=== PATIENT | male | born 1985 | race Caucasian/White ===

== ENCOUNTER 2019-01-25 18:01 | Emergency (ER) | payer SELFPAY ==
--- NOTE | 2019-01-25 18:22 | PDOC ---
Rapid Medical Evaluation Chief Complaint: Blood Sugar Problem Time Seen by Provider: 01/25/19 18:18 Medical Evaluation: Allergies Allergy/AdvReac Type Severity Reaction Status Date / Time No Known Allergies Allergy Verified 12/21/14 05:49 01/25/19 18:20 I have performed a brief in person evaluation of the patient. The patient presents with CC: Pt states he is supposed to take Metformin and has been out for 5 days. He has been drinking ETOH and has not checked his glucose. Pt denies taking insulin. HPI: PE: Skin: Clear, no rash HEENT: Oropharynx clear Lungs: Clear Heart: RRR MS: Moves all extremities Neuro: Alert Psych: Appropriate affect The patient will proceed to main ED for further evaluation. Discharge Disposition - Diagnosis Hyperglycemia - Referrals - Patient Instructions - Post Discharge Activity
[2019-01-25 18:25] VITALS: TEMP 97.9; BMI 27.4
--- NOTE | 2019-01-25 19:07 | PDOC ---
History of Present Illness - General Chief Complaint: Blood Sugar Problem Stated Complaint: DIZZINESS Time Seen by Provider: 01/25/19 18:18 History Source: Patient, Instructional Technology Facilitator Used Exam Limitations: Language Barrier - History of Present Illness Initial Comments: 01/25/19 19:29 Phone spanish interpreter used for HPI/ROS: [id number] 33 year old male with PMH DM, ETOH abuse, cocaine abuse, withdrawal seizures presented to ED for headache after cessation of drinking alcohol x2 days ago. Pt stated he is an every day ETOH user, drinking 15 beers a day, but he stopped to days ago because "I want to be well." Pt admitted to epigastric burning. Pt reported he has been out of his Metformin for 5 days. Allergies: NKDA [facility]acy: [facility] Past History - Past Medical History Allergies/Adverse Reactions: Allergies Allergy/AdvReac Type Severity Reaction Status Date / Time No Known Allergies Allergy Verified 01/25/19 18:25 Home Medications: Ambulatory Orders metFORMIN HCL [Metformin HCl] 500 mg PO BID #28 tablet 01/25/19 COPD: No Diabetes: Yes - Suicide/Smoking/Psychosocial Hx Smoking History: Never smoked Have you smoked in the past 12 months: No Information on smoking cessation initiated: No Hx Alcohol Use: No Drug/Substance Use Hx: No Substance Use Type: None Review of Systems - Review of Systems Able to Perform ROS?: Yes Comments:: 01/25/19 19:30 General: denied fever, chills, generalized weakness. HEENT: denied sore throat, rhinorrhea, ear pain. Heart: denied chest pain, palpitations, syncope, diaphoresis. Respiratory: denied shortness of breath, cough, sputum production, hemoptysis. Abdomen: admitted to abdominal pain. denied nausea, vomiting, diarrhea, constipation, blood in stool. : denied dysuria, increased urinary frequency, hematuria, urinary incontinence , flank pain. Back: denied back pain. Musculoskeletal: denied joint pain, muscle pain, joint swelling. Neurological: admitted to headache. denied dizziness, numbness, tingling, weakness. Skin: denied rash, laceration, abrasion. *Physical Exam - Vital Signs Last Vital Signs Temp Pulse Resp BP Pulse Ox 97.9 F 89 18 163/97 97 01/25/19 18:19 01/25/19 18:19 01/25/19 18:19 01/25/19 18:19 01/25/19 18:19 - Physical Exam Comments: 01/25/19 19:31 Constitutional: Well-nourished, Well-developed, appearing stated age. smells of ETOH. HEENT: head is normocephalic, atraumatic. EOMI. PERRLA. no tongue fasiculations. Neck: supple. Full ROM. Heart: regular rhythm. no murmurs, rubs or gallops. Lungs: clear to auscultation bilaterally. no crackles, rhonchi or wheezing. no stridor. Abdomen: soft, nontender. normal bowel sounds. no rebound, guarding, masses. Extremities: peripheral pulses intact. no lower extremity edema. Neurological: no tremor to bilateral hands. CN 2-12 grossly intact. 5/5 strength all extremities. normal sensation throughout. normal gait. Psych: awake, alert, oriented x3. follows commands. answers questions appropriately. ED Treatment Course - LABORATORY CBC & Chemistry Diagram: 01/25/19 19:07 01/25/19 19:07 Medical Decision Making - Medical Decision Making 01/25/19 19:32 33 year old male with above PMH presented to ED for headache s/p ETOH cessation x2 days ago associated with epigastric burning. Initial Vital Signs Temp Pulse Resp BP Pulse Ox 97.9 F 89 18 163/97 97 01/25/19 18:19 01/25/19 18:19 01/25/19 18:19 01/25/19 18:19 01/25/19 18:19 Afebrile. No tachycardia. No tachypnea. Hypertensive. No hypoxia on room air. Labs ordered: BGM, CBC, CMP, Lipase, UA, serum acetone, ETOH level Imaging ordered: none Medications ordered: banana bag, tylenol IV, pepcid IV CBC WBC 7.2 K/mm3 (4.0-10.0) 01/25/19 19:07 RBC 4.27 M/mm3 (4.00-5.60) 01/25/19 19:07 Hgb 14.2 GM/dL (11.7-16.9) 01/25/19 19:07 Hct 41.4 % (35.4-49) 01/25/19 19:07 MCV 97.1 fl (80-96) H 01/25/19 19:07 MCH 33.2 pg (25.7-33.7) 01/25/19 19:07 MCHC 34.3 g/dl (32.0-35.9) 01/25/19 19:07 RDW 13.6 % (11.9-15.9) 01/25/19 19:07 Plt Count 272 K/MM3 (134-434) D 01/25/19 19:07 MPV 7.8 fl (7.5-11.1) 01/25/19 19:07 Absolute Neuts (auto) 3.9 K/mm3 (1.5-8.0) 01/25/19 19:07 Neutrophils % 54.7 % (42.8-82.8) 01/25/19 19:07 Lymphocytes % 36.9 % (8-40) D 01/25/19 19:07 Monocytes % 6.8 % (3.8-10.2) 01/25/19 19:07 Eosinophils % 0.7 % (0-4.5) 01/25/19 19:07 Basophils % 0.9 % (0-2.0) 01/25/19 19:07 Nucleated RBC % 0 % (0-0) 01/25/19 19:07 No leukocytosis. No anemia. Elevated MCV -Consistent with ETOH abuse 01/25/19 20:15 Urine Test Results Urine Color Yellow 01/25/19 19:24 Urine Appearance Clear 01/25/19 19:24 Urine pH 6.5 (5.0-8.0) 01/25/19 19:24 Ur Specific [place] 1.011 (1.010-1.035) 01/25/19 19:24 Urine Protein Negative (NEGATIVE) 01/25/19 19:24 Urine Glucose (UA) Negative (NEGATIVE) 01/25/19 19:24 Urine Ketones Negative (NEGATIVE) 01/25/19 19:24 Urine Blood Negative (NEGATIVE) 01/25/19 19:24 Urine Nitrite Negative (NEGATIVE) 01/25/19 19:24 Urine Bilirubin Negative (NEGATIVE) 01/25/19 19:24 Ur Leukocyte Esterase Trace (NEGATIVE) 01/25/19 19:24 WBC = 3 No evidence of UTI. No protein or blood in urine. No glucose in urine. 01/25/19 20:40 Serum acetone negative. BGM 88. 01/25/19 20:54 CMP Sodium 139 mmol/L (136-145) 01/25/19 19:07 Potassium 4.1 mmol/L (3.5-5.1) 01/25/19 19:07 Chloride 104 mmol/L (98-107) 01/25/19 19:07 Carbon Dioxide 27 mmol/L (21-32) 01/25/19 19:07 Anion Gap 8 MMOL/L (8-16) 01/25/19 19:07 BUN 8 mg/dL (7-18) 01/25/19 19:07 Creatinine 0.7 mg/dL (0.55-1.3) 01/25/19 19:07 Creat Clearance w eGFR 128.34 (>60) 01/25/19 19:07 POC Glucometer 88 UNITS (80-120) 01/25/19 20:38 Random Glucose 123 mg/dL (74-106) H 01/25/19 19:07 Calcium 8.9 mg/dL (8.5-10.1) 01/25/19 19:07 Total Bilirubin 0.2 mg/dL (0.2-1) 01/25/19 19:07 AST 21 U/L (15-37) 01/25/19 19:07 ALT 34 U/L (13-61) 01/25/19 19:07 Alkaline Phosphatase 73 U/L (45-117) 01/25/19 19:07 Total Protein 8.1 g/dl (6.4-8.2) 01/25/19 19:07 Albumin 4.1 g/dl (3.4-5.0) 01/25/19 19:07 Lipase 185 U/L (73-393) 01/25/19 19:05 No electrolyte abnormalities. No JAYLYN. No transaminitis. Normal lipase. Pt informed of results, reported improvement in pain. Pt discharged. *DC/Admit/Observation/Transfer Diagnosis at time of Disposition: Headache, Epigastric pain - Prescriptions Prescriptions: metFORMIN HCL [Metformin HCl] 500 mg PO BID #28 tablet - Referrals Referrals: Cuong Chang MD [Staff Physician] - Giorgio Herrera MD [Staff Physician] - - Patient Instructions Printed Discharge Instructions: DI for Alcohol Abuse, DI for Drug or Alcohol Withdrawal Additional Instructions: Your lab work was normal. Your urine analysis was normal. Your blood sugar was not high. I have provided you with a referral to our Clinic System so that you can have a Primary Care Doctor. Call them tomorrow morning and make the soonest appointment available. Tell them you are trying to stop drinking alcohol. Take Tylenol over the counter for your pain, take as advised on label. Drink lots of water to stay hydrated. Return to the Emergency Department for chest pain, shortness of breath, weakness , numbness, tingling, seizure, increasing hand shaking, fever, vomiting, tongue shaking, palpitations or any other new, worsening or concerning symptoms. I have sent a prescription to your pharmacy for Metformin. Pick it up and take as advised on label. Detox information: [facility] is a Substance Abuse Rehab Services in [place], [place] Address: [address] [place] [address], [facility] Intake Line: Website: [email or web address] Primary Focus: Substance Abuse Rehab Services Treatment Type: Hospital inpatient, Hospital inpatient detoxification Treatment Approaches: Cognitive/behavioral therapy, Substance abuse counseling approach, Trauma-related counseling, Rational emotive behavioral therapy Payment/Insurance Accepted Reis or self-payment, Medicaid, Medicare, State financed health insurance plan other than Medicaid, Private health insurance, insurance (e.g., ) Payment Assistance No information available, please contact the facility directly. Type of Care: Detoxification , Methadone maintenance , Methadone detoxification , Buprenorphine maintenance , Buprenorphine detoxification , Buprenorphine used in treatment, Methadone, [facility] Facility Operation: Private organization, State substance abuse agency, State department of health, Hospital licensing authority, The Joint Commission Special Programs Provided: [place] TRANSLATION PROVIDED VIA [place] TRANSLATE Tu trabajo de laboratorio fue normal. [place] anlisis de orina fue normal. [place] nivel de azcar en la deb no era alto. Le he proporcionado skyler referencia a nuestro sistema de clnicas para que pueda tener un mdico de atencin primaria. Llmalos maana por la maana y haz la marlon ms pronto disponible. Dgales que est tratando de dejar de beber alcohol. [place] Tylenol sobre el mostrador para el dolor, tmelo tracey se indica en la etiqueta. Rebecca elijah agua para mantenerte hidratado. Regrese al Departamento de Emergencias para el dolor en el pecho, dificultad para respirar, debilidad, entumecimiento, hormigueo, convulsiones, aumento del temblor de las beena, fiebre, vmitos, lengua, palpitaciones o cualquier otro sntoma nuevo, que empeore o relacionado con los sntomas. He enviado skyler receta a [place] farmacia para Metformin. Recjalo y tmelo tracey se indica en la etiqueta. Informacin de desintoxicacin: [facility] es un servicio de rehabilitacin de abuso de sustancias en [place], [place] Direccin: [address] [place], [address] Nmero de telfono: Lnea de admisin: Sitio web: [email or web address] Enfoque principal: Servicios de rehabilitacin de abuso de sustancias Tipo de tratamiento: hospitalizacin, desintoxicacin hospitalaria Enfoques de tratamiento: terapia cognitiva / conductual, enfoque de consejera para el abuso de sustancias, consejera relacionada con el trauma, terapia conductual emotiva racional Pago / Seguro Aceptado Efectivo o pago por cuenta propia, Medicaid, Medicare, plan de seguro de neda financiado por el estado que no sea Medicaid, seguro de neda privado, seguro militar (por ejemplo, ) Asistencia de pago No hay informacin disponible, pngase en contacto directamente con la instalacin. Tipo de cuidado: Desintoxicacin, mantenimiento con metadona, desintoxicacin con metadona, mantenimiento con buprenorfina, desintoxicacin con buprenorfina, buprenorfina utilizada en el tratamiento, metadona, programa de tratamiento con opioides certificado por [facility] Operacin de la instalacin: Organizacin privada, agencia estatal para el abuso de sustancias, departamento de neda del estado, autoridad de licencias del hospital, [employer] Programas especiales proporcionados: Espaol - Post Discharge Activity Forms/Work/School Notes: Back to Work
[2019-01-25 19:12] LABS: BASO % 0.9 % (0-2.0); EOS % 0.7 % (0-4.5); HEMATOCRIT 41.4 % (35.4-49); HEMOGLOBIN 14.2 GM/dL (11.7-16.9); LYMPH % 36.9 % (8-40); MCH 33.2 pg (25.7-33.7); MCHC 34.3 g/dl (32.0-35.9); MEAN CELL VOLUME 97.1 fl (80-96); MEAN PLT VOLUME 7.8 fl (7.5-11.1); MONO % 6.8 % (3.8-10.2); NEUT % 54.7 % (42.8-82.8); PLATELET COUNT 272 K/MM3 (134-434); RBC 4.27 M/mm3 (4.00-5.60); RDW 13.6 % (11.9-15.9); WHITE BLOOD COUNT 7.2 K/mm3 (4.0-10.0)
[2019-01-25] MEDS ORDERED: ACETAMINOPHEN 1000 MG/100 ML VIAL (NON FORMULARY) IVPB ONE (19:28)
[2019-01-25] MEDS ORDERED: FOLIC ACID INJECTION - 1 MG, THIAMINE HCL 100 MG, MULTIVIT INJECTION ADULT 10 ML in SOD... IVPB ONE (19:28)
[2019-01-25] MEDS ORDERED: FAMOTIDINE 20 MG/50 ML IVPB 20 MG/50 ML MG IVPB ONE ×2 (19:28→19:44)
--- NOTE | 2019-01-25 19:29 | PDOC ---
Attending Attestation - Resident Resident Name: Grace Ferguson
[2019-01-25 19:37] LABS: LIPASE 185 U/L (73-393)
--- NOTE | 2019-01-25 19:37 | PDOC ---
Attending Attestation - Resident Resident Name: Grace Ferguson - HPI HPI: 01/25/19 19:56 The patient is a 33 year old male with a significant past medical history of hypercholesterolemia, gastritis, DM, ETOH abuse, cocaine abuse, withdrawal seizures who presents to the ED with a headache after drinking alcohol for the past 2 days. The patient states he is supposed to take Metformin but has been out of it for 5 days, however, he has been drinking ETOH and 15 beers a day. The patient states he is endorsing some epigastric pain and nausea, secondary to his symptoms. Allergies: None Past Medical History: above Social history: ETOH abuse, cocaine abuse Surgical history: None reported Meds: as documented in EMR 01/25/19 19:57 - Physicial Exam PE: 01/25/19 19:56 Agree with the resident's HPI and PE as documented in the electronic medical record. NAD, well appearing, PERRL, EOMI, MMM, nl conjunctiva, anicteric; neck supple. lungs clear, RRR, abdomen soft nontender. no barnes's. no mcburney point tenderness. GOODEN x4, no focal neuro deficits. No peripheral edema. normal color for ethnicity, WWP. No tongue fasciculations. no tremors. 01/25/19 19:58 <Hawa Jeffrey - Last Filed: 01/25/19 20:05> - ED Attending Attestation I have performed the following: I have examined & evaluated the patient, The case was reviewed & discussed with the resident, I agree w/resident's findings & plan - Medical Decision Making 01/25/19 19:59 hpi as documented VS reviewed wnl no e/o intox currently. no acute events in the ED no e/o alcohol w/d syndrome, neuro intact, speech clear. no neuro deficits, abdomen exam benign labs and lytes normal including sugar. lipase and LFTs unremarkable. doubt pancreatitis or acute hepatitis or abdominal pathology. neg acetones, so doubt DKA or HHS. no AG noted. given banana bag and IVF, pepcid and analgesia reassess, no symptoms, calm and well appearing in bed. ambulatory w/o difficulties. anticipate discharge. pcp followup, return precautions. compliance with meformin encouraged. detox referrals given 01/25/19 20:40 01/25/19 20:44 01/25/19 20:47 01/25/19 20:47 <Augusta Mccarty - Last Filed: 01/25/19 20:47>
[2019-01-25] MEDS ORDERED: ACETAMINOPHEN INJECTION 100 ML IVPB ONE (19:44)
[2019-01-25 20:00] LABS: EPI CELLS 0.3 /HPF (0-5/HPF); PH,URINE 6.5 (5.0-8.0); URINE APPEARANCE CLEAR; URINE BACTERIA 5.9 /hpf (NEGATIVE); URINE BILIRUBIN NEGATIVE (NEGATIVE); URINE CASTS 1 /lpf (0-8); URINE COLOR YELLOW; URINE GLUCOSE (UA) NEGATIVE (NEGATIVE); URINE KETONE NEGATIVE (NEGATIVE); URINE LEUK ESTERASE TRACE (NEGATIVE); URINE NITRITE NEGATIVE (NEGATIVE); URINE PROTEIN NEGATIVE (NEGATIVE); URINE RBC 0 /hpf (0-4); URINE UROBILINOGEN 0.2 mg/dL (0.2-1.0); URINE WBC 3 /hpf (0-5)
[2019-01-25 20:32] LABS: ACETONE SERUM NEGATIVE (NEGATIVE)
[2019-01-25 20:40] LABS: ALBUMIN 4.1 g/dl (3.4-5.0); CO2 27 mmol/L (21-32); CREATININE 0.7 mg/dL (0.55-1.3)
[2019-01-25 21:05] LABS: ALK PHOS 73 U/L (45-117); ANION GAP 8 MMOL/L (8-16); BILIRUBIN,TOTAL 0.2 mg/dL (0.2-1); BLOOD UREA NITROGEN 8 mg/dL (7-18); CALCIUM 8.9 mg/dL (8.5-10.1); CHLORIDE 104 mmol/L (98-107); GLUCOSE,RANDOM 123 mg/dL (74-106); POTASSIUM 4.1 mmol/L (3.5-5.1); SGOT/AST 21 U/L (15-37); SGPT/ALT 34 U/L (13-61); SODIUM 139 mmol/L (136-145); TOT PROT 8.1 g/dl (6.4-8.2)
[2019-01-25 21:50] VITALS: BP 150/90; PULSE 82
== END 2019-01-25 21:40 | disposition home or self-care (01) ==
LOC: JER 18:01
PROC: 3E033NZ Introduction of Analgesics, Hypnotics, Sedatives into Peripheral Vein, Percutaneous Approach (ICD-10-PCS; principal; 2019-01-25)
PROC: 3E033GC Introduction of Other Therapeutic Substance into Peripheral Vein, Percutaneous Approach (ICD-10-PCS; 2019-01-25)
PROC: 3E0337Z Introduction of Electrolytic and Water Balance Substance into Peripheral Vein, Percutaneous Approach (ICD-10-PCS; 2019-01-25)
DX: R10.13 Epigastric pain (principal); R51 Headache; F10.99 Alcohol use, unspecified with unspecified alcohol-induced disorder; F14.21 Cocaine dependence, in remission; E11.9 Type 2 diabetes mellitus without complications
CPT/HCPCS: 36415; 80053; 80307; 81003; 82009; 82962; 83690; 85025; 99284-25; J0131; J7030

== ENCOUNTER 2019-01-26 14:42 | Inpatient (IN) | payer SELFPAY ==
[2019-01-26 16:53] VITALS: BMI 29.0
--- NOTE | 2019-01-26 17:20 | HP ---
CIWA Score Nausea/Vomitin Muscle Tremors: 1-None Visible, but [place] Anxiety: 3 Agitation: 0-Normal Activity Paroxysmal Sweats: 2 Orientation: 0-Oriented Tacttile Disturbances: 2-Mild Itch/Numbness/Burn (b/l hands and feet) Auditory Disturbances: 1-Very Mild Visual Disturbances: 0-None Headache: 3-Moderate CIWA-Ar Total Score: 15 - Admission Criteria OASAS Guidelines: Admission for Medically Managed Detox: Requires at least one of the followin. CIWA greater than 12 2. Seizures within the past 24 hours 3. Delirium tremens within the past 24 hours 4. Hallucinations within the past 24 hours 5. Acute intervention needed for co occurring medical disorder 6. Acute intervention needed for co occurring psychiatric disorder 7. Severe withdrawal that cannot be handled at a lower level of care (continued vomiting, continued diarrhea, abnormal vital signs) requiring intravenous medication and/or fluids 8. Patient presents the following: CIWA greater than 12 Admission Criteria Met: Admission criteria met Admission ROS [facility] Chief Complaint: " I want to stop drinking" Allergies/Adverse Reactions: Allergies Allergy/AdvReac Type Severity Reaction Status Date / Time No Known Allergies Allergy Verified 01/26/19 16:42 History of Present Illness: The patient is a 33 year old male, presents today for detox, reports first time seeking treatment for his alcohol use. Patient reports he was evaluated at [facility] 01/25/19 d/t withdrawal symptoms referred to our facility for detox. Drinks since 10 years old, reports in the past five days drinking has worsen and has been drinking 20 cans x 12 oz beer per day, last drink two days ago. PMHX: hypercholesterolemia, gastritis, DM II, ETOH abuse, cocaine abuse, withdrawal seizures three months ago.Longest period of sobriety 15 days d/t withdrawal symptoms Denies psychiatric hx. Deneis SI / HI. Exam Limitations: No Limitations - Ebola screening Have you traveled outside of the country in the last 21 days: No Have you had contact with anyone from an Ebola affected area: No - Review of Systems Constitutional: Chills, Loss of Appetite, Night Sweats, Changes in sleep, Unintentional Wgt. Loss (5 lbs in past two months) EENT: reports: Other (light sensitivity) Respiratory: reports: No Symptoms reported Cardiac: reports: Palpitations GI: reports: Nausea, Poor Appetite, Poor Fluid Intake, Vomiting (started last night and stopped this morning), Indigestion, Abdominal cramping : reports: No Symptoms Reported Musculoskeletal: reports: Back Pain Integumentary: reports: No Symptoms Reported Neuro: reports: Headache, Paresthesia (hands and feet) Endocrine: reports: Increased Thirst Hematology: reports: No Symptoms Reported Psychiatric: reports: Orientated x3, Anxious Other Systems: Reviewed and Negative Patient History - Patient Medical History Hx Anemia: No Hx Asthma: No Hx Chronic Obstructive Pulmonary Disease (COPD): No Hx Cancer: No Hx Cardiac Disorders: No Hx Congestive Heart Failure: No Hx Hypertension: No Hx Hypercholesterolemia: Yes Hx Pacemaker: No HX Cerebrovascular Accident: No Hx Seizures: Yes (ETOH related three months ago ) Hx Dementia: No Hx Diabetes: Yes Hx Gastrointestinal Disorders: Yes (GERD ) Hx Liver Disease: No Hx Genitourinary Disorders: No Hx Sexually Transmitted Disorders: No Hx Renal Disease (ESRD): No Hx Thyroid Disease: No Hx Human Immunodeficiency Virus (HIV): No (Last tested four years ago ) Hx Hepatitis C: No Hx Depression: No Hx Suicide Attempt: No Hx Bipolar Disorder: No Hx Schizophrenia: No - Patient Surgical History Past Surgical History: No - PPD History Previous Implant?: No Documented Results: Negative w/o proof PPD to be Administered?: Yes - Smoking Cessation Smoking history: Never smoked Have you smoked in the past 12 months: No Hx Chewing Tobacco Use: No Initiated information on smoking cessation: No - Substance & Tx. History Hx Alcohol Use: Yes Hx Substance Use: Yes Substance Use Type: Alcohol Hx Substance Use Treatment: No - Substances abused Alcohol Substance route: Oral Frequency: Daily Amount used: 20 CANS OF BEER, (12 OUNCES) Age of first use: 16 Date of last use: 01/24/19 Cocaine Substance route: Inhalation Frequency: 1-3 times last 30 days Amount used: $20 Age of first use: 23 Date of last use: 01/22/19 Family Disease History - Family Disease History Family Disease History: Heart Disease: Mother (htn) Other Family History: cousin, uncles: alcoholism Admission Physical Exam BHS - Vital Signs Vital Signs: Vital Signs - 24 hr 01/26/19 16:43 Temperature 98.9 F Pulse Rate 64 Respiratory 18 Rate Blood Pressure 140/88 - Physical General Appearance: Yes: Appropriately Dressed, Mild Distress, Sweating, Anxious HEENTM: Yes: EOMI, Hearing grossly Normal, Normal ENT Inspection, Normocephalic , Normal Voice, RHONA, Pharynx Normal, Tm's normal Respiratory: Yes: Chest Non-Tender, Lungs Clear, Normal Breath Sounds, No Respiratory Distress, No Accessory Muscle Use Neck: Yes: No masses,lesions,Nodules, Trachea in good position Breast: Yes: Breast Exam Deferred Cardiology: Yes: Regular Rhythm, Regular Rate Abdominal: Yes: Normal Bowel Sounds, Non Tender, Flat, Soft Genitourinary: Yes: Within Normal Limits Back: Yes: Normal Inspection Musculoskeletal: Yes: Within Normal Limits, full range of Motion, Gait Steady, Pelvis Stable Extremities: Yes: Normal Capillary Refill, Normal Inspection, Normal Range of Motion, Non-Tender Neurological: Yes: regulatory compliance director II-XII NML intact, Fully Oriented, Alert, Motor Strength 5/5, Normal Response, Depressed Affect Integumentary: Yes: Normal Color, Warm, Diaphoresis Lymphatic: Yes: Within Normal Limits - Diagnostic (1) Alcohol dependence with uncomplicated withdrawal Current Visit: Yes Status: Acute (2) DM II (diabetes mellitus, type II), controlled Current Visit: Yes Status: Chronic Qualifiers: Diabetes mellitus lean six sigma black belt insulin use: without halfway use Diabetes mellitus complication status: without complication Qualified Code(s): E11.9 - Type 2 diabetes mellitus without complications (3) Gastritis Current Visit: Yes Status: Chronic Qualifiers: Chronicity: unspecified Gastritis bleeding: without bleeding (4) Hypercholesteremia Current Visit: Yes Status: Acute Breathalyzer - Breathalyzer Breathalyzer: 0 Urine Drug Screen - Test Device Lot number: [id number] Expiration date: 01/08/20 - Control Is test valid?: Yes - Results Drug screen NEGATIVE: No Urine drug screen results: [facility]-Cocaine Inpatient Rehab Admission - Rehab Decision to Admit Inpatient rehab admission?: No
[2019-01-26] MEDS ORDERED: MAGNESIUM CITRATE 300 ML BOTTLE PO PRN (17:31)
[2019-01-26] MEDS ORDERED: chlordiazePOXIDE HCL 25 MG CAPSULE PO PRN (17:31)
[2019-01-26] MEDS ORDERED: ACETAMINOPHEN 325 MG TABLET (FP) PO PRN ×2 (17:31)
[2019-01-26] MEDS ORDERED: ONDANSETRON *ODT* 4 MG TABLET SL PRN (17:31)
[2019-01-26] MEDS ORDERED: MAGNESIUM HYDROX 2400MG/30ML ORAL SUSPENSION 30 ML CUP PO PRN (17:31)
[2019-01-26] MEDS ORDERED: IBUPROFEN 400 MG TABLET (FP) PO PRN (17:31)
[2019-01-26] MEDS ORDERED: BISMUTH SUBSALICYLATE 524 MG/30 ML UD PO PRN (17:31)
[2019-01-26] MEDS ORDERED: METHOCARBAMOL 500 MG TABLET PO PRN (17:31)
[2019-01-26] MEDS ORDERED: MENTHOL/PHENOL 1 EACH UD MM PRN (17:31)
[2019-01-26] MEDS ORDERED: MAG HYDROX/AL HYDROX/SIMETH 30 ML UNIT-DOSE CUP PO PRN (17:31)
[2019-01-26] MEDS ORDERED: hydrOXYzine PAMOATE 25 MG CAPSULE (FP) PO PRN (17:31)
[2019-01-26] MEDS ORDERED: chlordiazePOXIDE HCL 10 MG CAPSULE PO PRN (18:04)
[2019-01-26] MEDS ORDERED: chlordiazePOXIDE HCL 25 MG CAPSULE PO ONE (18:45)
[2019-01-26 21:12] LABS: EPI CELLS 0.1 /HPF (0-5/HPF); PH,URINE 6.5 (5.0-8.0); URINE APPEARANCE CLEAR; URINE BACTERIA 0.8 /hpf (NEGATIVE); URINE BILIRUBIN NEGATIVE (NEGATIVE); URINE CASTS 0 /lpf (0-8); URINE COLOR YELLOW; URINE GLUCOSE (UA) NEGATIVE (NEGATIVE); URINE KETONE NEGATIVE (NEGATIVE); URINE LEUK ESTERASE 1+ (NEGATIVE); URINE NITRITE NEGATIVE (NEGATIVE); URINE PROTEIN NEGATIVE (NEGATIVE); URINE RBC 0 /hpf (0-4); URINE WBC 1 /hpf (0-5)
[2019-01-26] MEDS: chlordiazePOXIDE HCL 25 MG CAPSULE PO SCH (22:00)
[2019-01-26] MEDS: PANTOPRAZOLE 20 MG TABLET (FP) PO SCH (22:23)
[2019-01-26] MEDS: THIAMINE HCL 100 MG TABLET (FP) PO SCH (22:23)
[2019-01-26] MEDS: MELATONIN 5 MG TABLETS PO PRN (22:23)
[2019-01-26] MEDS ORDERED: chlordiazePOXIDE HCL 25 MG CAPSULE PO SCH (23:00)
[2019-01-27] MEDS: chlordiazePOXIDE HCL 25 MG CAPSULE PO SCH ×2 (05:40→15:05)
[2019-01-27] MEDS: metFORMIN HCL 500 MG TABLET (FP) PO SCH ×2 (06:28→17:12)
[2019-01-27] MEDS: PANTOPRAZOLE 20 MG TABLET (FP) PO SCH ×2 (10:08→22:14)
[2019-01-27] MEDS: PRENATAL VITAMINS W/ FOLIC ACID TABLET (FP) PO SCH (10:08)
[2019-01-27 11:01] LABS: ALBUMIN 3.7 g/dl (3.4-5.0); ALK PHOS 68 U/L (45-117); ANION GAP 6 MMOL/L (8-16); BILIRUBIN,TOTAL 0.6 mg/dL (0.2-1); BLOOD UREA NITROGEN 9 mg/dL (7-18); CALCIUM 9.1 mg/dL (8.5-10.1); CHLORIDE 105 mmol/L (98-107); CO2 28 mmol/L (21-32); CREATININE 0.7 mg/dL (0.55-1.3); GLUCOSE,RANDOM 122 mg/dL (74-106); POTASSIUM 3.9 mmol/L (3.5-5.1); SGOT/AST 28 U/L (15-37); SGPT/ALT 35 U/L (13-61); SODIUM 139 mmol/L (136-145); TOT PROT 7.3 g/dl (6.4-8.2)
[2019-01-27 11:03] LABS: HEMATOCRIT 41.6 % (35.4-49); HEMOGLOBIN 14.3 GM/dL (11.7-16.9); MCH 33.5 pg (25.7-33.7); MCHC 34.3 g/dl (32.0-35.9); MEAN CELL VOLUME 97.5 fl (80-96); MEAN PLT VOLUME 8.7 fl (7.5-11.1); PLATELET COUNT 223 K/MM3 (134-434); RBC 4.26 M/mm3 (4.00-5.60); RDW 13.5 % (11.9-15.9); WHITE BLOOD COUNT 5.6 K/mm3 (4.0-10.0)
--- NOTE | 2019-01-27 15:56 | PN ---
[facility] CIWA - CIWA Score Nausea/Vomitin-No Nausea/No Vomiting Muscle Tremors: 3 Anxiety: 3 Agitation: 0-Normal Activity Paroxysmal Sweats: 3 Orientation: 0-Oriented Tacttile Disturbances: 3-Moderate Itch/Numb/Burn Auditory Disturbances: 0-None Visual Disturbances: 2-Mild Sensitivity Headache: 0-None Present CIWA-Ar Total Score: 14 S Progress Note (SOAP) Subjective: Stomach Cramping, Tremors, Sweating, Interrupted Sleep. Objective: PATIENT A & O X 3, OBSERVED AMBULATING ON UNIT UNASSISTED. IN NO ACUTE DISTRESS. 01/27/19 15:53 Vital Signs Temperature 95.6 F L 01/27/19 14:55 Pulse Rate 68 01/27/19 14:55 Respiratory Rate 18 01/27/19 14:55 Blood Pressure 137/78 01/27/19 14:55 O2 Sat by Pulse Oximetry (%) Laboratory Tests 01/26/19 01/27/19 01/27/19 17:00 05:39 07:00 WBC 5.6 RBC 4.26 Hgb 14.3 Hct 41.6 MCV 97.5 H MCH 33.5 MCHC 34.3 RDW 13.5 Plt Count 223 MPV 8.7 D Sodium Potassium Chloride Carbon Dioxide Anion Gap BUN Creatinine Creat Clearance w eGFR POC Glucometer 119 Random Glucose Calcium Total Bilirubin AST ALT Alkaline Phosphatase Total Protein Albumin Urine Color Yellow Urine Appearance Clear Urine pH 6.5 Ur Specific [place] 1.009 L Urine Protein Negative Urine Glucose (UA) Negative Urine Ketones Negative Urine Blood Negative Urine Nitrite Negative Urine Bilirubin Negative Urine Urobilinogen 1.0 Ur Leukocyte Esterase 1+ H Urine WBC (Auto) 1 Urine RBC (Auto) 0 Urine Casts (Auto) 0 U Epithel Cells (Auto) 0.1 Urine Bacteria (Auto) 0.8 RPR Titer HIV 1&2 Antibody Screen HIV P24 Antigen 01/27/19 01/27/19 01/27/19 07:00 07:00 07:00 WBC RBC Hgb Hct MCV MCH MCHC RDW Plt Count MPV Sodium 139 Potassium 3.9 Chloride 105 Carbon Dioxide 28 Anion Gap 6 L BUN 9 Creatinine 0.7 Creat Clearance w eGFR 128.34 POC Glucometer Random Glucose 122 H Calcium 9.1 Total Bilirubin 0.6 AST 28 ALT 35 Alkaline Phosphatase 68 Total Protein 7.3 Albumin 3.7 Urine Color Urine Appearance Urine pH Ur Specific [place] Urine Protein Urine Glucose (UA) Urine Ketones Urine Blood Urine Nitrite Urine Bilirubin Urine Urobilinogen Ur Leukocyte Esterase Urine WBC (Auto) Urine RBC (Auto) Urine Casts (Auto) U Epithel Cells (Auto) Urine Bacteria (Auto) RPR Titer Nonreactive HIV 1&2 Antibody Screen Negative HIV P24 Antigen Negative LABS NOTED. Assessment: 01/27/19 15:54 WITHDRAWAL SYMPTOMS. Plan: CONTINUE DETOX. INCREASE DAILY PO FLUID / WATER INTAKE.
[2019-01-27] MEDS: THIAMINE HCL 100 MG TABLET (FP) PO SCH (22:14)
[2019-01-27] MEDS: chlordiazePOXIDE 5 MG CAPSULE PO SCH (22:14)
[2019-01-27] MEDS ORDERED: chlordiazePOXIDE HCL 25 MG CAPSULE PO SCH (23:00)
[2019-01-28] MEDS: chlordiazePOXIDE 5 MG CAPSULE PO SCH ×2 (05:07→12:46)
[2019-01-28] MEDS: metFORMIN HCL 500 MG TABLET (FP) PO SCH ×2 (07:54→16:57)
[2019-01-28] MEDS: PANTOPRAZOLE 20 MG TABLET (FP) PO SCH ×2 (10:17→22:13)
[2019-01-28] MEDS: PRENATAL VITAMINS W/ FOLIC ACID TABLET (FP) PO SCH (10:17)
--- NOTE | 2019-01-28 14:29 | EKG ---
Test Reason : Blood Pressure : / mmHG Vent. Rate : 056 BPM Atrial Rate : 056 BPM P-R Int : 150 ms QRS Dur : 076 ms QT Int : 454 ms P-R-T Axes : 033 045 026 degrees QTc Int : 438 ms POOR DATA QUALITY, INTERPRETATION MAY BE ADVERSELY AFFECTED SINUS BRADYCARDIA INCREASED R/S RATIO IN V1, CONSIDER EARLY TRANSITION OR POSTERIOR INFARCT ABNORMAL ECG NO PREVIOUS ECGS AVAILABLE Confirmed by MD BELGICA, SRIKANTH ([id number]) on 01/28/2019 2:29:08 PM Referred By: Confirmed By:SRIKANTH LINDO MD
--- NOTE | 2019-01-28 14:34 | PN ---
S CIWA - CIWA Score Nausea/Vomitin-No Nausea/No Vomiting Muscle Tremors: 2 Anxiety: 2 Agitation: 0-Normal Activity Paroxysmal Sweats: 3 Orientation: 0-Oriented Tacttile Disturbances: 1-Very Mild Itch/Numbness Auditory Disturbances: 0-None Visual Disturbances: 1-Very Mild Sensitivity Headache: 0-None Present CIWA-Ar Total Score: 9 BHS Progress Note (SOAP) Subjective: Tremors, Sweating, Interrupted Sleep. Patient Reports That Current Withdrawal Symptoms have subsided considerably in degree since Detox Admission and are relatively mild at this time. Objective: PATIENT A & O X 3, OBSERVED AMBULATING ON UNIT UNASSISTED. IN NO ACUTE DISTRESS. 01/28/19 14:35 Vital Signs Temperature 97.0 F L 01/28/19 13:06 Pulse Rate 74 01/28/19 13:06 Respiratory Rate 18 01/28/19 13:06 Blood Pressure 131/77 01/28/19 13:06 O2 Sat by Pulse Oximetry (%) Laboratory Tests 01/26/19 01/27/19 01/27/19 17:00 05:39 07:00 WBC 5.6 RBC 4.26 Hgb 14.3 Hct 41.6 MCV 97.5 H MCH 33.5 MCHC 34.3 RDW 13.5 Plt Count 223 MPV 8.7 D Sodium Potassium Chloride Carbon Dioxide Anion Gap BUN Creatinine Creat Clearance w eGFR POC Glucometer 119 Random Glucose Calcium Total Bilirubin AST ALT Alkaline Phosphatase Total Protein Albumin Urine Color Yellow Urine Appearance Clear Urine pH 6.5 Ur Specific [place] 1.009 L Urine Protein Negative Urine Glucose (UA) Negative Urine Ketones Negative Urine Blood Negative Urine Nitrite Negative Urine Bilirubin Negative Urine Urobilinogen 1.0 Ur Leukocyte Esterase 1+ H Urine WBC (Auto) 1 Urine RBC (Auto) 0 Urine Casts (Auto) 0 U Epithel Cells (Auto) 0.1 Urine Bacteria (Auto) 0.8 RPR Titer HIV 1&2 Antibody Screen HIV P24 Antigen 01/27/19 01/27/19 01/27/19 07:00 07:00 07:00 WBC RBC Hgb Hct MCV MCH MCHC RDW Plt Count MPV Sodium 139 Potassium 3.9 Chloride 105 Carbon Dioxide 28 Anion Gap 6 L BUN 9 Creatinine 0.7 Creat Clearance w eGFR 128.34 POC Glucometer Random Glucose 122 H Calcium 9.1 Total Bilirubin 0.6 AST 28 ALT 35 Alkaline Phosphatase 68 Total Protein 7.3 Albumin 3.7 Urine Color Urine Appearance Urine pH Ur Specific [place] Urine Protein Urine Glucose (UA) Urine Ketones Urine Blood Urine Nitrite Urine Bilirubin Urine Urobilinogen Ur Leukocyte Esterase Urine WBC (Auto) Urine RBC (Auto) Urine Casts (Auto) U Epithel Cells (Auto) Urine Bacteria (Auto) RPR Titer Nonreactive HIV 1&2 Antibody Screen Negative HIV P24 Antigen Negative 01/27/19 01/28/19 17:26 06:19 WBC RBC Hgb Hct MCV MCH MCHC RDW Plt Count MPV Sodium Potassium Chloride Carbon Dioxide Anion Gap BUN Creatinine Creat Clearance w eGFR POC Glucometer 129 126 Random Glucose Calcium Total Bilirubin AST ALT Alkaline Phosphatase Total Protein Albumin Urine Color Urine Appearance Urine pH Ur Specific [place] Urine Protein Urine Glucose (UA) Urine Ketones Urine Blood Urine Nitrite Urine Bilirubin Urine Urobilinogen Ur Leukocyte Esterase Urine WBC (Auto) Urine RBC (Auto) Urine Casts (Auto) U Epithel Cells (Auto) Urine Bacteria (Auto) RPR Titer HIV 1&2 Antibody Screen HIV P24 Antigen LABS NOTED. Assessment: 01/28/19 14:35 WITHDRAWAL SYMPTOMS. Plan: CONTINUE DETOX. PATIENT SCHEDULED FOR D/C TOMORROW.
[2019-01-28] MEDS ORDERED: chlordiazePOXIDE HCL 10 MG CAPSULE PO PRN ×2 (21:00→23:00)
[2019-01-28] MEDS: THIAMINE HCL 100 MG TABLET (FP) PO SCH (22:11)
[2019-01-28] MEDS: MELATONIN 5 MG TABLETS PO PRN (22:11)
[2019-01-28] MEDS: chlordiazePOXIDE HCL 10 MG CAPSULE PO SCH (22:12)
[2019-01-28] MEDS ORDERED: chlordiazePOXIDE HCL 10 MG CAPSULE PO SCH (23:00)
[2019-01-29] MEDS: chlordiazePOXIDE HCL 10 MG CAPSULE PO SCH (05:18)
[2019-01-29 06:23] VITALS: BP 112/70; PULSE 60; TEMP 98.3
[2019-01-29] MEDS: metFORMIN HCL 500 MG TABLET (FP) PO SCH (07:19)
--- NOTE | 2019-01-29 10:43 | DS ---
[facility] Detox Discharge Summary Admission Date: 01/26/19 Discharge Date: 01/29/19 - History Present History: Alcohol Dependence Additional Comments: 33 years old male admitted on01/26/19 for alcohol withdrawal stabilization completed detox regimen aftercare [facility] - Physical Exam Results Vital Signs: Vital Signs Temperature 98.3 F 01/29/19 06:21 Pulse Rate 60 01/29/19 06:21 Respiratory Rate 18 01/29/19 06:21 Blood Pressure 112/70 01/29/19 06:21 O2 Sat by Pulse Oximetry (%) Pertinent Admission Physical Exam Findings: alcohol withdrawal sx Laboratory Last Values WBC 5.6 K/mm3 (4.0-10.0) 01/27/19 07:00 RBC 4.26 M/mm3 (4.00-5.60) 01/27/19 07:00 Hgb 14.3 GM/dL (11.7-16.9) 01/27/19 07:00 Hct 41.6 % (35.4-49) 01/27/19 07:00 MCV 97.5 fl (80-96) H 01/27/19 07:00 MCH 33.5 pg (25.7-33.7) 01/27/19 07:00 MCHC 34.3 g/dl (32.0-35.9) 01/27/19 07:00 RDW 13.5 % (11.9-15.9) 01/27/19 07:00 Plt Count 223 K/MM3 (134-434) 01/27/19 07:00 MPV 8.7 fl (7.5-11.1) D 01/27/19 07:00 Sodium 139 mmol/L (136-145) 01/27/19 07:00 Potassium 3.9 mmol/L (3.5-5.1) 01/27/19 07:00 Chloride 105 mmol/L (98-107) 01/27/19 07:00 Carbon Dioxide 28 mmol/L (21-32) 01/27/19 07:00 Anion Gap 6 MMOL/L (8-16) L 01/27/19 07:00 BUN 9 mg/dL (7-18) 01/27/19 07:00 Creatinine 0.7 mg/dL (0.55-1.3) 01/27/19 07:00 Creat Clearance w eGFR 128.34 (>60) 01/27/19 07:00 POC Glucometer 107 UNITS (80-120) 01/29/19 05:20 Random Glucose 122 mg/dL (74-106) H 01/27/19 07:00 Calcium 9.1 mg/dL (8.5-10.1) 01/27/19 07:00 Total Bilirubin 0.6 mg/dL (0.2-1) 01/27/19 07:00 AST 28 U/L (15-37) 01/27/19 07:00 ALT 35 U/L (13-61) 01/27/19 07:00 Alkaline Phosphatase 68 U/L (45-117) 01/27/19 07:00 Total Protein 7.3 g/dl (6.4-8.2) 01/27/19 07:00 Albumin 3.7 g/dl (3.4-5.0) 01/27/19 07:00 Urine Color Yellow 01/26/19 17:00 Urine Appearance Clear 01/26/19 17:00 Urine pH 6.5 (5.0-8.0) 01/26/19 17:00 Ur Specific [place] 1.009 (1.010-1.035) L 01/26/19 17:00 Urine Protein Negative (NEGATIVE) 01/26/19 17:00 Urine Glucose (UA) Negative (NEGATIVE) 01/26/19 17:00 Urine Ketones Negative (NEGATIVE) 01/26/19 17:00 Urine Blood Negative (NEGATIVE) 01/26/19 17:00 Urine Nitrite Negative (NEGATIVE) 01/26/19 17:00 Urine Bilirubin Negative (NEGATIVE) 01/26/19 17:00 Urine Urobilinogen 1.0 mg/dL (0.2-1.0) 01/26/19 17:00 Ur Leukocyte Esterase 1+ (NEGATIVE) H 01/26/19 17:00 Urine WBC (Auto) 1 /hpf (0-5) 01/26/19 17:00 Urine RBC (Auto) 0 /hpf (0-4) 01/26/19 17:00 Urine Casts (Auto) 0 /lpf (0-8) 01/26/19 17:00 U Epithel Cells (Auto) 0.1 /HPF (0-5/HPF) 01/26/19 17:00 Urine Bacteria (Auto) 0.8 /hpf (NEGATIVE) 01/26/19 17:00 RPR Titer Nonreactive (NONREACTIVE) 01/27/19 07:00 HIV 1&2 Antibody Screen Negative 01/27/19 07:00 HIV P24 Antigen Negative 01/27/19 07:00 lab noted - Treatment Hospital Course: Detox Protocol Followed, Detoxed Safely, Responded well, Discharged Condition Good, Rehab Referral Accepted Patient has Accepted a Rehab Referral to: [facility] - Medication Discharge Medications: Ambulatory Orders metFORMIN HCL [Metformin HCl] 500 mg PO BID 30 Days #60 tablet 01/28/19 - Diagnosis (1) Alcohol dependence with uncomplicated withdrawal Status: Acute (2) Hypercholesteremia Status: Chronic (3) DM II (diabetes mellitus, type II), controlled Status: Chronic Qualifiers: Diabetes mellitus [employer] insulin use: without [employer] use Diabetes mellitus complication status: without complication Qualified Code(s): E11.9 - Type 2 diabetes mellitus without complications - AMA Did Patient Leave Against Medical Advice: No
[2019-01-29] MEDS ORDERED: chlordiazePOXIDE HCL 10 MG CAPSULE PO SCH (23:00)
== END 2019-01-29 09:01 | disposition home or self-care (01) | DRG 775 ==
LOC: YASAS 14:42 → Y3N 17:59
PROVIDERS: ADMIT Surgery; ATTEND Surgery
PROC: HZ2ZZZZ Detoxification Services for Substance Abuse Treatment (ICD-10-PCS; principal; 2019-01-26)
DX: F10.230 Alcohol dependence with withdrawal, uncomplicated (principal); E11.9 Type 2 diabetes mellitus without complications; E78.00 Pure hypercholesterolemia, unspecified; K21.9 Gastro-esophageal reflux disease without esophagitis; K29.50 Unspecified chronic gastritis without bleeding; Z79.84 Long term (current) use of oral hypoglycemic drugs; Z86.69 Personal history of other diseases of the nervous system and sense organs
CPT/HCPCS: 36415; 80053; 81003; 82962; 85027; 86593; 87389; 93005; 93010

== ENCOUNTER 2020-08-22 01:11 | Inpatient (IN) | payer OTHER ==
[2020-08-22] MEDS ORDERED: FOLIC ACID INJECTION - 1 MG, THIAMINE HCL 100 MG, MULTIVIT INJECTION ADULT 10 ML in SOD... IVPB ONE (02:34)
[2020-08-22 03:17] VITALS: BMI 27.4
[2020-08-22 03:32] LABS: BASO % 0.3 % (0-2.0); EOS % 0.1 % (0-4.5); HEMATOCRIT 39.4 % (35.4-49); HEMOGLOBIN 13.4 GM/dL (11.7-16.9); LYMPH % 23.5 % (8-40); MCH 31.6 pg (25.7-33.7); MCHC 34.1 g/dl (32.0-35.9); MEAN CELL VOLUME 92.7 fl (80-96); MONO % 4.7 % (3.8-10.2); NEUT % 71.4 % (42.8-82.8); PLATELET COUNT 82 K/MM3 (134-434); RBC 4.25 M/mm3 (4.00-5.60); RDW 14.1 % (11.9-15.9); WHITE BLOOD COUNT 7.7 K/mm3 (4.0-10.0)
[2020-08-22 03:40] LABS: INR 0.99 (0.83-1.09); PROTHROMBIN TIME (PATIENT) 12.2 SEC (9.7-13.0)
[2020-08-22 03:43] LABS: ACTIVATED PTT 28.6 SECONDS (25.2-36.5)
[2020-08-22 03:57] LABS: POTASSIUM 3.4 mmol/L (3.5-5.1); SODIUM 136 mmol/L (136-145)
[2020-08-22 03:59] LABS: ALBUMIN 4.2 g/dl (3.4-5.0); BLOOD UREA NITROGEN 10.4 mg/dL (7-18); CALCIUM 8.7 mg/dL (8.5-10.1); CO2 28 mmol/L (21-32); LIPASE 393 U/L (73-393)
[2020-08-22 04:00] LABS: GLUCOSE,RANDOM 115 mg/dL (74-106)
[2020-08-22 04:02] LABS: CREATININE 0.8 mg/dL (0.55-1.3); SGOT/AST 50 U/L (15-37); SGPT/ALT 38 U/L (13-61)
[2020-08-22 04:04] LABS: BILIRUBIN,TOTAL 0.5 mg/dL (0.2-1); TOT PROT 8.1 g/dl (6.4-8.2)
[2020-08-22 04:05] LABS: ALK PHOS 84 U/L (45-117)
[2020-08-22 04:08] LABS: N-TERMINAL BNP < 5.0 pg/ml (5-125)
[2020-08-22 05:02] LABS: ANION GAP 15 MMOL/L (8-16); CHLORIDE 93 mmol/L (98-107)
[2020-08-22] MEDS ORDERED: chlordiazePOXIDE HCL 25 MG CAPSULE PO PRN (07:36)
[2020-08-22] MEDS ORDERED: SODIUM CHLORIDE 1,000 ML IV SCH (07:45)
[2020-08-22] MEDS ORDERED: PIPERACILLIN/TAZOB 3.375 GM 3.375 GM in DEXTROSE 5%-WATER - 50 ML IVPB ONE (07:46)
[2020-08-22] MEDS ORDERED: KCL 10 MEQ IVPB 30 MEQ/300 ML INFUS.BAG IVPB ONE (09:02)
[2020-08-22] MEDS: KCL 10 MEQ IVPB 10 MEQ/100 ML INFUS.BAG IVPB SCH ×4 (09:14→23:10)
[2020-08-22] MEDS ORDERED: LORazepam 2 MG/ML SDV VIAL ONE ×2 (09:42→16:18)
[2020-08-22] MEDS ORDERED: PANTOPRAZOLE SODIUM 40 MG VIAL IVPUSH SCH (10:00)
[2020-08-22] MEDS ORDERED: THIAMINE HCL 200 MG/2 ML VIAL ONE (10:23)
[2020-08-22] MEDS ORDERED: PANTOPRAZOLE SODIUM 40 MG VIAL ONE ×2 (10:23→21:51)
[2020-08-22] MEDS: THIAMINE HCL 200 MG/2 ML VIAL IVPB SCH (10:31)
[2020-08-22] MEDS ORDERED: LORazepam 2 MG/ML SDV VIAL IVPUSH PRN (10:56)
[2020-08-22] MEDS ORDERED: chlordiazePOXIDE HCL 25 MG CAPSULE PO SCH (11:00)
[2020-08-22] MEDS: INSULIN SLIDING SCALE (NOVOLOG) 1 VIAL SQ SCH ×2 (11:16→15:42)
[2020-08-22] MEDS ORDERED: chlordiazePOXIDE HCL 25 MG CAPSULE ONE (11:23)
[2020-08-22 12:27] LABS: MAGNESIUM 2.4 mg/dL (1.8-2.4)
[2020-08-22 12:31] LABS: PHOSPHOROUS 4.7 mg/dL (2.5-4.9)
[2020-08-22] MEDS: DEXTROSE 5%-0.45% SALINE 1,000 ML IV SCH (15:12)
[2020-08-22] MEDS ORDERED: DEXTROSE 50%-WATER 25 GM/50 ML DISP.SYRIN ONE (15:30)
[2020-08-22] MEDS ORDERED: DEXTROSE 50%-WATER - 25 GM/50 ML VIAL IVPUSH ONE (15:31)
[2020-08-22] MEDS: PANTOPRAZOLE SODIUM 40 MG VIAL IVPUSH SCH (22:00)
[2020-08-22] MEDS: LORazepam 2 MG/ML SDV VIAL IVPUSH PRN (22:54)
[2020-08-22 23:35] LABS: HEMATOCRIT 31.3 % (35.4-49); HEMOGLOBIN 10.8 GM/dL (11.7-16.9); MCH 31.9 pg (25.7-33.7); MCHC 34.4 g/dl (32.0-35.9); MEAN CELL VOLUME 92.8 fl (80-96); MEAN PLT VOLUME 8.9 fl (7.5-11.1); PLATELET COUNT 54 K/MM3 (134-434); RBC 3.37 M/mm3 (4.00-5.60); RDW 13.8 % (11.9-15.9); WHITE BLOOD COUNT 3.1 K/mm3 (4.0-10.0)
[2020-08-23] MEDS: KCL 10 MEQ IVPB 10 MEQ/100 ML INFUS.BAG IVPB SCH ×2 (00:29→02:07)
[2020-08-23 00:43] LABS: BASO % 0.4 % (0-2.0); EOS % 0.2 % (0-4.5); HEMATOCRIT 32.3 % (35.4-49); HEMOGLOBIN 11.1 GM/dL (11.7-16.9); LYMPH % 34.5 % (8-40); MCH 31.9 pg (25.7-33.7); MCHC 34.4 g/dl (32.0-35.9); MEAN CELL VOLUME 92.9 fl (80-96); MEAN PLT VOLUME 8.2 fl (7.5-11.1); MONO % 11.2 % (3.8-10.2); NEUT % 53.7 % (42.8-82.8); PLATELET COUNT 50 K/MM3 (134-434); RBC 3.48 M/mm3 (4.00-5.60); RDW 13.9 % (11.9-15.9); WHITE BLOOD COUNT 3.4 K/mm3 (4.0-10.0)
[2020-08-23] MEDS ORDERED: KCL 10 MEQ IVPB 10 MEQ/100 ML INFUS.BAG IVPB SCH (02:00)
[2020-08-23] MEDS: DEXTROSE 5%-0.45% SALINE 1,000 ML IV SCH ×2 (02:05→18:00)
[2020-08-23] MEDS: LORazepam 2 MG/ML SDV VIAL IVPUSH PRN ×3 (05:35→16:13)
[2020-08-23 07:03] LABS: POTASSIUM 3.7 mmol/L (3.5-5.1)
[2020-08-23 07:09] LABS: ALBUMIN 3.7 g/dl (3.4-5.0); BLOOD UREA NITROGEN 6.1 mg/dL (7-18); CALCIUM 8.8 mg/dL (8.5-10.1)
[2020-08-23 07:12] LABS: CREATININE 0.6 mg/dL (0.55-1.3); PHOSPHOROUS 3.1 mg/dL (2.5-4.9)
[2020-08-23 07:14] LABS: BILIRUBIN,TOTAL 0.9 mg/dL (0.2-1)
[2020-08-23] MEDS ORDERED: FLU VACCINE (FLULAVAL) PF 60 MCG/0.5 ML SYRINGE 2020-2021 IM ONE (10:00)
[2020-08-23] MEDS: THIAMINE HCL 200 MG/2 ML VIAL IVPB SCH (10:18)
[2020-08-23] MEDS: PANTOPRAZOLE SODIUM 40 MG VIAL IVPUSH SCH ×2 (10:21→22:06)
[2020-08-23] MEDS ORDERED: LORazepam 1 MG TABLET PO PRN (18:07)
[2020-08-23] MEDS: LORazepam 1 MG TABLET PO SCH (22:06)
[2020-08-24] MEDS ORDERED: chlordiazePOXIDE HCL 25 MG CAPSULE PO SCH (05:00)
[2020-08-24] MEDS: LORazepam 1 MG TABLET PO SCH ×4 (05:56→23:01)
[2020-08-24 07:50] LABS: POTASSIUM 3.3 mmol/L (3.5-5.1)
[2020-08-24 07:53] LABS: CALCIUM 8.5 mg/dL (8.5-10.1)
[2020-08-24 07:54] LABS: ALBUMIN 3.6 g/dl (3.4-5.0); MAGNESIUM 2.1 mg/dL (1.8-2.4)
[2020-08-24 07:57] LABS: CREATININE 0.6 mg/dL (0.55-1.3)
[2020-08-24 07:59] LABS: BILIRUBIN,TOTAL 1.3 mg/dL (0.2-1)
[2020-08-24 08:01] LABS: TOT PROT 7.1 g/dl (6.4-8.2)
[2020-08-24 08:47] LABS: BASO % 0.6 % (0-2.0); EOS % 1.6 % (0-4.5); HEMATOCRIT 34.1 % (35.4-49); HEMOGLOBIN 11.7 GM/dL (11.7-16.9); LYMPH % 32.7 % (8-40); MCH 32.2 pg (25.7-33.7); MCHC 34.4 g/dl (32.0-35.9); MEAN CELL VOLUME 93.5 fl (80-96); MEAN PLT VOLUME 9.3 fl (7.5-11.1); MONO % 10.2 % (3.8-10.2); NEUT % 54.9 % (42.8-82.8); PLATELET COUNT 49 K/MM3 (134-434); RBC 3.65 M/mm3 (4.00-5.60); RDW 13.8 % (11.9-15.9); WHITE BLOOD COUNT 3.4 K/mm3 (4.0-10.0)
[2020-08-24] MEDS: PANTOPRAZOLE SODIUM 40 MG VIAL IVPUSH SCH ×2 (09:05→23:02)
[2020-08-24] MEDS: THIAMINE HCL 200 MG/2 ML VIAL IVPB SCH (09:05)
[2020-08-24 09:53] LABS: BLOOD UREA NITROGEN 2.5 mg/dL (7-18)
[2020-08-24] MEDS ORDERED: ACETAMINOPHEN 325 MG TABLET (FP) PO PRN (15:48)
[2020-08-25] MEDS ORDERED: chlordiazePOXIDE HCL 10 MG CAPSULE PO PRN
[2020-08-25] MEDS ORDERED: chlordiazePOXIDE HCL 10 MG CAPSULE PO SCH (05:00)
[2020-08-25] MEDS: LORazepam 1 MG TABLET PO SCH ×4 (05:11→22:13)
[2020-08-25] MEDS: MUPIROCIN 2% TOPICAL OINTMENT FOR DECOLONIZATION NS SCH ×3 (07:11→07:13)
[2020-08-25] MEDS: CHLORHEXIDINE GLUCONATE 4% CLEANSER FOR DECOLONIZATION TP SCH ×2 (07:12→07:13)
[2020-08-25 08:14] LABS: BASO % 0.4 % (0-2.0); EOS % 1.8 % (0-4.5); HEMOGLOBIN 11.8 GM/dL (11.7-16.9); LYMPH % 30.2 % (8-40); MCH 31.5 pg (25.7-33.7); MCHC 33.8 g/dl (32.0-35.9); MEAN CELL VOLUME 93.2 fl (80-96); MEAN PLT VOLUME 8.6 fl (7.5-11.1); MONO % 8.7 % (3.8-10.2); NEUT % 58.9 % (42.8-82.8); PLATELET COUNT 67 K/MM3 (134-434); RBC 3.75 M/mm3 (4.00-5.60); RDW 13.4 % (11.9-15.9)
[2020-08-25 08:22] LABS: POTASSIUM 3.6 mmol/L (3.5-5.1)
[2020-08-25 08:26] LABS: INR 0.97 (0.83-1.09); PROTHROMBIN TIME (PATIENT) 11.9 SEC (9.7-13.0)
[2020-08-25 08:40] LABS: ALBUMIN 3.8 g/dl (3.4-5.0)
[2020-08-25 08:41] LABS: BILIRUBIN,TOTAL 0.6 mg/dL (0.2-1); TOT PROT 7.3 g/dl (6.4-8.2)
[2020-08-25 08:44] LABS: CREATININE 0.6 mg/dL (0.55-1.3)
[2020-08-25 08:49] LABS: BLOOD UREA NITROGEN 3.5 mg/dL (7-18)
[2020-08-25 08:50] LABS: MAGNESIUM 2.1 mg/dL (1.8-2.4)
[2020-08-25] MEDS: THIAMINE HCL 200 MG/2 ML VIAL IVPB SCH (09:35)
[2020-08-25] MEDS: PANTOPRAZOLE SODIUM 40 MG VIAL IVPUSH SCH ×2 (09:35→22:13)
[2020-08-25] MEDS ORDERED: FLU VACCINE (FLULAVAL) PF 60 MCG/0.5 ML SYRINGE 2020-2021 IM ONE (10:00)
[2020-08-26] MEDS ORDERED: LORazepam 0.5 MG TABLET PO PRN
[2020-08-26] MEDS ORDERED: chlordiazePOXIDE HCL 10 MG CAPSULE PO SCH (05:00)
[2020-08-26] MEDS: LORazepam 0.5 MG TABLET PO SCH ×4 (05:18→22:07)
[2020-08-26 07:23] LABS: POTASSIUM 3.7 mmol/L (3.5-5.1)
[2020-08-26 07:25] LABS: CALCIUM 8.7 mg/dL (8.5-10.1)
[2020-08-26 07:26] LABS: ALBUMIN 3.8 g/dl (3.4-5.0); BLOOD UREA NITROGEN 5.5 mg/dL (7-18); MAGNESIUM 2.1 mg/dL (1.8-2.4)
[2020-08-26 07:29] LABS: CREATININE 0.7 mg/dL (0.55-1.3)
[2020-08-26 07:30] LABS: BILIRUBIN,TOTAL 0.5 mg/dL (0.2-1)
[2020-08-26 07:31] LABS: TOT PROT 7.2 g/dl (6.4-8.2)
[2020-08-26 07:32] LABS: BASO % 0.4 % (0-2.0); EOS % 1.2 % (0-4.5); HEMATOCRIT 35.8 % (35.4-49); HEMOGLOBIN 12.2 GM/dL (11.7-16.9); LYMPH % 27.8 % (8-40); MCH 31.9 pg (25.7-33.7); MEAN CELL VOLUME 93.7 fl (80-96); MEAN PLT VOLUME 8.2 fl (7.5-11.1); MONO % 10.2 % (3.8-10.2); NEUT % 60.4 % (42.8-82.8); PLATELET COUNT 96 K/MM3 (134-434); RBC 3.82 M/mm3 (4.00-5.60); RDW 13.5 % (11.9-15.9); WHITE BLOOD COUNT 4.2 K/mm3 (4.0-10.0)
[2020-08-26 08:02] LABS: INR 1.03 (0.83-1.09); PROTHROMBIN TIME (PATIENT) 12.4 SEC (9.7-13.0)
[2020-08-26] MEDS: PANTOPRAZOLE SODIUM 40 MG VIAL IVPUSH SCH (09:19)
[2020-08-26] MEDS: THIAMINE HCL 200 MG/2 ML VIAL IVPB SCH (09:19)
[2020-08-26] MEDS ORDERED: PT OWN MED DRAWER 7, Y5N ONE (22:06)
[2020-08-27] MEDS ORDERED: chlordiazePOXIDE HCL 10 MG CAPSULE PO ONE (05:00)
[2020-08-27] MEDS ORDERED: LORazepam 0.5 MG TABLET PO ONE (05:00)
[2020-08-27 07:18] LABS: INR 1.05 (0.83-1.09); PROTHROMBIN TIME (PATIENT) 12.7 SEC (9.7-13.0)
[2020-08-27 07:19] LABS: BASO % 0.5 % (0-2.0); EOS % 1.5 % (0-4.5); HEMATOCRIT 34.7 % (35.4-49); HEMOGLOBIN 11.8 GM/dL (11.7-16.9); LYMPH % 33.7 % (8-40); MCH 31.9 pg (25.7-33.7); MCHC 33.8 g/dl (32.0-35.9); MEAN CELL VOLUME 94.4 fl (80-96); MONO % 11.1 % (3.8-10.2); NEUT % 53.2 % (42.8-82.8); PLATELET COUNT 121 K/MM3 (134-434); RBC 3.68 M/mm3 (4.00-5.60); RDW 13.8 % (11.9-15.9); WHITE BLOOD COUNT 4.5 K/mm3 (4.0-10.0)
[2020-08-27 07:22] LABS: POTASSIUM 3.7 mmol/L (3.5-5.1)
[2020-08-27 07:26] LABS: BLOOD UREA NITROGEN 8.2 mg/dL (7-18)
[2020-08-27 07:27] LABS: ALBUMIN 3.6 g/dl (3.4-5.0); CALCIUM 8.3 mg/dL (8.5-10.1)
[2020-08-27 07:30] LABS: CREATININE 0.7 mg/dL (0.55-1.3)
[2020-08-27 07:32] LABS: BILIRUBIN,TOTAL 0.3 mg/dL (0.2-1); TOT PROT 6.8 g/dl (6.4-8.2)
[2020-08-27 08:40] VITALS: BP 114/84; PULSE 75; TEMP 98.9
[2020-08-27] MEDS: THIAMINE HCL 200 MG/2 ML VIAL IVPB SCH (09:21)
[2020-08-27] MEDS ORDERED: PANTOPRAZOLE 20 MG TABLET PO SCH (10:00)
== END 2020-08-27 12:15 | disposition home or self-care (01) | DRG 243 ==
LOC: JER 01:11 → MERGE 06:07 → JERBED 06:07 → J4S 22:42
PROVIDERS: ADMIT Internal Medicine Pulmonary Disease; ATTEND Nurse Practitioner Family
PROC: HZ2ZZZZ Detoxification Services for Substance Abuse Treatment (ICD-10-PCS; 2020-08-22)
PROC: 0DB78ZX Excision of Stomach, Pylorus, Via Natural or Artificial Opening Endoscopic, Diagnostic (ICD-10-PCS; 2020-08-26)
PROC: 0DB68ZX Excision of Stomach, Via Natural or Artificial Opening Endoscopic, Diagnostic (ICD-10-PCS; principal; 2020-08-26 11:00)
DX: K20.80 Other esophagitis without bleeding (principal); D69.6 Thrombocytopenia, unspecified; E11.9 Type 2 diabetes mellitus without complications; E11.649 Type 2 diabetes mellitus with hypoglycemia without coma; E87.6 Hypokalemia; F10.139 Alcohol abuse with withdrawal, unspecified; K92.0 Hematemesis; K29.60 Other gastritis without bleeding; F10.129 Alcohol abuse with intoxication, unspecified; R10.13 Epigastric pain; R11.2 Nausea with vomiting, unspecified; I10 Essential (primary) hypertension; E78.5 Hyperlipidemia, unspecified; F32.9 Major depressive disorder, single episode, unspecified; S02.32XA Fracture of orbital floor, left side, initial encounter for closed fracture; S02.832A Fracture of medial orbital wall, left side, initial encounter for closed fracture; K44.9 Diaphragmatic hernia without obstruction or gangrene; X58.XXXA Exposure to other specified factors, initial encounter; Y93.9 Activity, unspecified; Y92.89 Other specified places as the place of occurrence of the external cause; Y99.9 Unspecified external cause status; B96.81 Helicobacter pylori [H. pylori] as the cause of diseases classified elsewhere; K29.50 Unspecified chronic gastritis without bleeding
CPT/HCPCS: 36415; 70450-TC; 71045-TC-FY; 71250-TC; 74177-TC; 74220-TC-FY; 80053; 80307; 82962; 83036; 83690; 83735; 83880; 84100; 84484; 85025; 85027; 85610; 85730; 86850; 86900; 86901; 88305-TC; 93005; 93010; 99291; 99292; C9803; G0008; Q2036; U0003

== ENCOUNTER 2020-10-13 06:40 | Emergency (ER) | payer OTHER ==
[2020-10-13 06:58] VITALS: BMI 26.5
[2020-10-13] MEDS ORDERED: FAMOTIDINE 20 MG/50 ML IVPB 20 MG/50 ML MG IVPB ONE ×2 (07:55→08:21)
[2020-10-13] MEDS ORDERED: MAG HYDROX/AL HYDROX/SIMETH 30 ML UNIT-DOSE CUP PO ONE (07:55)
[2020-10-13] MEDS ORDERED: ONDANSETRON 4 MG/2 ML VIAL IVPUSH ONE (07:56)
[2020-10-13] MEDS ORDERED: chlordiazePOXIDE HCL 25 MG CAPSULE PO ONE (08:09)
[2020-10-13] MEDS ORDERED: LORazepam 2 MG/ML SDV VIAL IVPUSH ONE (08:13)
[2020-10-13] MEDS ORDERED: LORazepam 2 MG/ML SDV VIAL ONE (08:21)
[2020-10-13] MEDS ORDERED: MAG HYDROX/AL HYDROX/SIMETH 30 ML UNIT-DOSE CUP ONE (08:21)
[2020-10-13] MEDS ORDERED: ONDANSETRON 4 MG/2 ML VIAL ONE (08:21)
[2020-10-13 09:18] LABS: BASO % 0.3 % (0-2.0); EOS % 0.9 % (0-4.5); HEMATOCRIT 36.2 % (35.4-49); HEMOGLOBIN 12.2 GM/dL (11.7-16.9); MCH 29.4 pg (25.7-33.7); MCHC 33.8 g/dl (32.0-35.9); MEAN CELL VOLUME 86.8 fl (80-96); MEAN PLT VOLUME 7.6 fl (7.5-11.1); NEUT % 49.8 % (42.8-82.8); PLATELET COUNT 180 K/MM3 (134-434); RBC 4.17 M/mm3 (4.00-5.60); RDW 14.9 % (11.9-15.9); WHITE BLOOD COUNT 5.5 K/mm3 (4.0-10.0)
[2020-10-13 09:26] LABS: ALBUMIN 3.5 g/dl (3.4-5.0); BLOOD UREA NITROGEN 9.8 mg/dL (7-18); CALCIUM 7.7 mg/dL (8.5-10.1)
[2020-10-13 09:27] LABS: MAGNESIUM 1.7 mg/dL (1.8-2.4)
[2020-10-13 09:30] LABS: CREATININE 0.7 mg/dL (0.55-1.3)
[2020-10-13 09:31] LABS: BILIRUBIN,TOTAL 0.6 mg/dL (0.2-1); TOT PROT 7.1 g/dl (6.4-8.2)
[2020-10-13] MEDS ORDERED: SODIUM CHLORIDE 1,000 ML IV STA ×2 (09:36→13:32)
[2020-10-13] MEDS ORDERED: CALCIUM CARBONATE 650 MG TABLET PO ONE (09:39)
[2020-10-13] MEDS ORDERED: MAGNESIUM SULF 50% (8.12 MEQ/2 ML-1 GM VIAL) IVPB ONE (10:15)
[2020-10-13 12:25] LABS: CALCIUM 7.7 mg/dL (8.5-10.1)
[2020-10-13 12:26] LABS: MAGNESIUM 1.6 mg/dL (1.8-2.4)
[2020-10-13] MEDS ORDERED: MAGNESIUM SULFATE IN WATER 2 GM/50 ML IVPB IVPB ONE (12:41)
[2020-10-13 15:20] VITALS: TEMP 97.7
[2020-10-13 15:47] LABS: CALCIUM 7.3 mg/dL (8.5-10.1); MAGNESIUM 2.1 mg/dL (1.8-2.4)
[2020-10-13 16:37] VITALS: BP 147/91; PULSE 79
== END 2020-10-13 16:45 | disposition short-term general hospital (02) ==
LOC: JER 06:40 → MERGE 06:40 → JER 16:45
PROC: 3E033NZ Introduction of Analgesics, Hypnotics, Sedatives into Peripheral Vein, Percutaneous Approach (ICD-10-PCS; principal; 2020-10-13)
PROC: 3E033GC Introduction of Other Therapeutic Substance into Peripheral Vein, Percutaneous Approach (ICD-10-PCS; 2020-10-13)
PROC: 3E0337Z Introduction of Electrolytic and Water Balance Substance into Peripheral Vein, Percutaneous Approach (ICD-10-PCS; 2020-10-13)
DX: F10.230 Alcohol dependence with withdrawal, uncomplicated (principal); E83.42 Hypomagnesemia; K29.70 Gastritis, unspecified, without bleeding
CPT/HCPCS: 36415; 71046-TC-FY; 80053; 80307; 82310; 83605; 83690; 83735; 85025; 93005; 93010; 99285-25

== ENCOUNTER 2020-10-28 20:04 | Emergency (ER) | payer SELFPAY ==
[2020-10-28 20:20] VITALS: BMI 29.2
[2020-10-28 21:54] LABS: BASO % 0.6 % (0-2.0); EOS % 0.6 % (0-4.5); HEMATOCRIT 42.3 % (35.4-49); HEMOGLOBIN 13.9 GM/dL (11.7-16.9); LYMPH % 43.7 % (8-40); MCH 28.9 pg (25.7-33.7); MEAN CELL VOLUME 87.5 fl (80-96); MEAN PLT VOLUME 7.4 fl (7.5-11.1); NEUT % 51.1 % (42.8-82.8); PLATELET COUNT 304 K/MM3 (134-434); RBC 4.83 M/mm3 (4.00-5.60); RDW 16.9 % (11.9-15.9)
[2020-10-28 22:12] LABS: POTASSIUM 4.2 mmol/L (3.5-5.1)
[2020-10-28 22:13] LABS: BLOOD UREA NITROGEN 6.4 mg/dL (7-18)
[2020-10-28 22:14] LABS: CALCIUM 8.9 mg/dL (8.5-10.1)
[2020-10-28 22:15] LABS: ALBUMIN 4.3 g/dl (3.4-5.0)
[2020-10-28 22:18] LABS: CREATININE 0.6 mg/dL (0.55-1.3)
[2020-10-28 22:19] LABS: BILIRUBIN,TOTAL 0.4 mg/dL (0.2-1); TOT PROT 8.4 g/dl (6.4-8.2)
[2020-10-28] MEDS ORDERED: chlordiazePOXIDE HCL 25 MG CAPSULE PO ONE (22:42)
[2020-10-28] MEDS ORDERED: chlordiazePOXIDE HCL 25 MG CAPSULE ONE (22:59)
[2020-10-28] MEDS ORDERED: SODIUM CHLORIDE 1,000 ML IV STA (23:55)
[2020-10-29] MEDS ORDERED: ACETAMINOPHEN 325 MG TABLET (FP) PO ONE (00:36)
[2020-10-29] MEDS ORDERED: ACETAMINOPHEN 325 MG TABLET (FP) ONE (01:06)
[2020-10-29 01:14] VITALS: BP 128/87; PULSE 77; TEMP 98.7
[2020-10-29 01:23] LABS: URINE APPEARANCE CLEAR; URINE BILIRUBIN NEGATIVE (NEGATIVE); URINE COLOR YELLOW; URINE GLUCOSE (UA) NEGATIVE (NEGATIVE); URINE KETONE NEGATIVE (NEGATIVE)
[2020-10-29 01:24] LABS: EPI CELLS 1 /uL (0-25.1); HYALINE CASTS 0 /uL (0-3.1); URINE BACTERIA 24 /uL (0-1359); URINE LEUK ESTERASE NEGATIVE (NEGATIVE); URINE NITRITE NEGATIVE (NEGATIVE); URINE PROTEIN TRACE (NEGATIVE); URINE RBC 2 /uL (0-23.9); URINE UROBILINOGEN 0.2 mg/dL (0.2-1.0); URINE WBC 2 /uL (0-25.8)
== END 2020-10-29 01:50 | disposition home or self-care (01) ==
LOC: JER 20:04 → JERFT 20:04 → MERGE 20:04 → JER 10-29 01:50
PROC: 3E0337Z Introduction of Electrolytic and Water Balance Substance into Peripheral Vein, Percutaneous Approach (ICD-10-PCS; principal; 2020-10-28)
DX: F10.230 Alcohol dependence with withdrawal, uncomplicated (principal); R07.89 Other chest pain; R10.9 Unspecified abdominal pain; S09.90XA Unspecified injury of head, initial encounter; Y04.0XXA Assault by unarmed brawl or fight, initial encounter
CPT/HCPCS: 36415; 70450-TC; 70486-TC; 71250-TC; 72125-TC; 73030-TC-RT-FY; 74177-TC; 80053; 81003; 85025; 99285-25; Q9967

== ENCOUNTER 2020-10-30 00:10 | Emergency (ER) | payer SELFPAY ==
[2020-10-30 00:48] VITALS: BP 154/96; PULSE 91; TEMP 97.9; BMI 29.0
[2020-10-30] MEDS ORDERED: METOCLOPRAMIDE HCL INJECTION 10 MG/2 ML VIAL IVPB ONE (00:50)
[2020-10-30] MEDS ORDERED: SODIUM CHLORIDE 1,000 ML IV STA (00:50)
[2020-10-30] MEDS ORDERED: chlordiazePOXIDE HCL 25 MG CAPSULE PO ONE (00:52)
[2020-10-30] MEDS ORDERED: PANTOPRAZOLE SODIUM 40 MG VIAL IVPB ONE (00:54)
[2020-10-30] MEDS ORDERED: PANTOPRAZOLE SODIUM 40 MG/100 ML BAG IVPB ONE (00:58)
[2020-10-30] MEDS ORDERED: chlordiazePOXIDE HCL 25 MG CAPSULE ONE (00:58)
[2020-10-30] MEDS ORDERED: METOCLOPRAMIDE HCL INJECTION 10 MG/2 ML VIAL ONE (00:58)
[2020-10-30 02:39] LABS: CHLORIDE 98 mmol/L (98-107); POTASSIUM 3.8 mmol/L (3.5-5.1); SODIUM 136 mmol/L (136-145)
[2020-10-30 02:41] LABS: CALCIUM 9.4 mg/dL (8.5-10.1)
[2020-10-30 02:42] LABS: ANION GAP 7 MMOL/L (8-16); CO2 30 mmol/L (21-32); GLUCOSE,RANDOM 83 mg/dL (74-106); LIPASE 200 U/L (73-393)
[2020-10-30 02:44] LABS: CREATININE 0.6 mg/dL (0.55-1.3); SGOT/AST 41 U/L (15-37); SGPT/ALT 35 U/L (13-61)
[2020-10-30 02:46] LABS: BILIRUBIN,TOTAL 0.7 mg/dL (0.2-1); TOT PROT 7.8 g/dl (6.4-8.2)
[2020-10-30 02:47] LABS: ALK PHOS 101 U/L (45-117)
[2020-10-30 03:01] LABS: BASO % 2.9 % (0-2.0); EOS % 1.2 % (0-4.5); HEMATOCRIT 38.4 % (35.4-49); HEMOGLOBIN 12.8 GM/dL (11.7-16.9); MCH 28.5 pg (25.7-33.7); MCHC 33.3 g/dl (32.0-35.9); MEAN CELL VOLUME 85.6 fl (80-96); MEAN PLT VOLUME 7.6 fl (7.5-11.1); NEUT % 71.5 % (42.8-82.8); PLATELET COUNT 211 K/MM3 (134-434); RBC 4.49 M/mm3 (4.00-5.60); WHITE BLOOD COUNT 4.8 K/mm3 (4.0-10.0)
[2020-10-30 03:06] LABS: MONO % 6.4 % (3.8-10.2)
[2020-10-30 08:08] LABS: PLATELET ESTIMATE ADEQUATE
== END 2020-10-30 07:08 | disposition home or self-care (01) ==
LOC: MERGE 00:10 → JER 00:10
PROC: 3E033GC Introduction of Other Therapeutic Substance into Peripheral Vein, Percutaneous Approach (ICD-10-PCS; principal; 2020-10-30)
PROC: 3E033GC Introduction of Other Therapeutic Substance into Peripheral Vein, Percutaneous Approach (ICD-10-PCS; 2020-10-30)
PROC: 3E0337Z Introduction of Electrolytic and Water Balance Substance into Peripheral Vein, Percutaneous Approach (ICD-10-PCS; 2020-10-30)
DX: F10.20 Alcohol dependence, uncomplicated (principal); K29.20 Alcoholic gastritis without bleeding
CPT/HCPCS: 36415; 80053; 80307; 83690; 84484; 85025; 93005; 93010; 99284-25

== ENCOUNTER 2020-10-30 08:58 | Inpatient (IN) | payer SELFPAY ==
[2020-10-30 09:57] VITALS: BMI 24.2
[2020-10-30] MEDS ORDERED: ONDANSETRON *ODT* 4 MG TABLET SL PRN (11:09)
[2020-10-30] MEDS ORDERED: ACETAMINOPHEN 325 MG TABLET (FP) PO PRN ×2 (11:09)
[2020-10-30] MEDS ORDERED: METHOCARBAMOL 500 MG TABLET PO PRN (11:09)
[2020-10-30] MEDS ORDERED: NICOTINE POLACRILEX 2 MG GUM BUC PRN (11:09)
[2020-10-30] MEDS ORDERED: MENTHOL/PHENOL 1 EACH UD MM PRN (11:09)
[2020-10-30] MEDS ORDERED: BISMUTH SUBSALICYLATE 262 MG/15 ML BTL PO PRN (11:09)
[2020-10-30] MEDS ORDERED: MAGNESIUM CITRATE 300 ML BOTTLE PO PRN (11:09)
[2020-10-30] MEDS ORDERED: chlordiazePOXIDE HCL 25 MG CAPSULE PO PRN (11:09)
[2020-10-30] MEDS ORDERED: MAGNESIUM HYDROX 2400MG/30ML ORAL SUSPENSION 30 ML CUP PO PRN (11:09)
[2020-10-30] MEDS: chlordiazePOXIDE HCL 25 MG CAPSULE PO SCH ×3 (12:33→22:13)
[2020-10-30] MEDS: PRENATAL VITAMINS W/ FOLIC ACID TABLET (FP) PO SCH (12:34)
[2020-10-30] MEDS: hydrOXYzine PAMOATE 25 MG CAPSULE (FP) PO SCH ×3 (14:44→22:13)
[2020-10-30 16:20] LABS: HEMATOCRIT 36.3 % (35.4-49); HEMOGLOBIN 11.9 GM/dL (11.7-16.9); MCH 28.5 pg (25.7-33.7); MCHC 32.8 g/dl (32.0-35.9); MEAN CELL VOLUME 86.8 fl (80-96); MEAN PLT VOLUME 7.8 fl (7.5-11.1); PLATELET COUNT 182 K/MM3 (134-434); RBC 4.18 M/mm3 (4.00-5.60); RDW 16.7 % (11.9-15.9); WHITE BLOOD COUNT 4.4 K/mm3 (4.0-10.0)
[2020-10-30 16:24] LABS: POTASSIUM 3.3 mmol/L (3.5-5.1)
[2020-10-30 16:36] LABS: TOT PROT 7.5 g/dl (6.4-8.2)
[2020-10-30 16:37] LABS: ALBUMIN 3.8 g/dl (3.4-5.0); CALCIUM 8.9 mg/dL (8.5-10.1)
[2020-10-30 16:38] LABS: CREATININE 0.8 mg/dL (0.55-1.3)
[2020-10-30 16:41] LABS: BLOOD UREA NITROGEN 8.3 mg/dL (7-18)
[2020-10-30] MEDS: metFORMIN HCL 500 MG TABLET (FP) PO SCH (17:21)
[2020-10-30] MEDS: IBUPROFEN 400 MG TABLET (FP) PO PRN (17:22)
[2020-10-30] MEDS: MELATONIN 5 MG TABLETS PO SCH (22:13)
[2020-10-30] MEDS: THIAMINE HCL 100 MG TABLET (FP) PO SCH (22:13)
[2020-10-31] MEDS: hydrOXYzine PAMOATE 25 MG CAPSULE (FP) PO SCH ×2 (05:08→10:07)
[2020-10-31] MEDS: chlordiazePOXIDE HCL 25 MG CAPSULE PO SCH ×4 (05:09→22:10)
[2020-10-31] MEDS: IBUPROFEN 400 MG TABLET (FP) PO PRN (05:12)
[2020-10-31] MEDS: metFORMIN HCL 500 MG TABLET (FP) PO SCH ×2 (06:16→17:24)
[2020-10-31] MEDS: PRENATAL VITAMINS W/ FOLIC ACID TABLET (FP) PO SCH (10:07)
[2020-10-31] MEDS: PANTOPRAZOLE 20 MG TABLET PO SCH (10:07)
[2020-10-31] MEDS ORDERED: hydrOXYzine PAMOATE 25 MG CAPSULE (FP) PO PRN (10:28)
[2020-10-31] MEDS: LIDOCAINE 5% TOPICAL PATCH TP SCH (11:37)
[2020-10-31] MEDS: POTASSIUM CHLORIDE TABS 20 MEQ TABLET.ER (FP) PO SCH ×2 (11:38→22:09)
[2020-10-31] MEDS: IBUPROFEN 600 MG TABLET (FP) PO PRN ×2 (15:36→22:10)
[2020-10-31] MEDS: MAG HYDROX/AL HYDROX/SIMETH 30 ML UNIT-DOSE CUP PO PRN (19:41)
[2020-10-31] MEDS: LIDOCAINE PATCH REMOVAL MC SCH (22:09)
[2020-10-31] MEDS: MELATONIN 5 MG TABLETS PO SCH (22:09)
[2020-10-31] MEDS: THIAMINE HCL 100 MG TABLET (FP) PO SCH (22:09)
[2020-11-01] MEDS: chlordiazePOXIDE HCL 25 MG CAPSULE PO SCH ×4 (05:16→22:09)
[2020-11-01] MEDS: IBUPROFEN 600 MG TABLET (FP) PO PRN (05:18)
[2020-11-01] MEDS: metFORMIN HCL 500 MG TABLET (FP) PO SCH ×2 (06:50→16:40)
[2020-11-01] MEDS: PRENATAL VITAMINS W/ FOLIC ACID TABLET (FP) PO SCH (10:08)
[2020-11-01] MEDS: POTASSIUM CHLORIDE TABS 20 MEQ TABLET.ER (FP) PO SCH ×2 (10:08→22:07)
[2020-11-01] MEDS: LIDOCAINE 5% TOPICAL PATCH TP SCH (10:08)
[2020-11-01] MEDS: PANTOPRAZOLE 20 MG TABLET PO SCH (10:59)
[2020-11-01] MEDS: MAG HYDROX/AL HYDROX/SIMETH 30 ML UNIT-DOSE CUP PO PRN (16:40)
[2020-11-01] MEDS: THIAMINE HCL 100 MG TABLET (FP) PO SCH (22:08)
[2020-11-01] MEDS: MELATONIN 5 MG TABLETS PO SCH (22:08)
[2020-11-01] MEDS: LIDOCAINE PATCH REMOVAL MC SCH (22:20)
[2020-11-02] MEDS ORDERED: chlordiazePOXIDE HCL 10 MG CAPSULE PO PRN
[2020-11-02] MEDS: chlordiazePOXIDE HCL 10 MG CAPSULE PO SCH ×4 (05:13→22:05)
[2020-11-02] MEDS: metFORMIN HCL 500 MG TABLET (FP) PO SCH ×2 (06:18→17:28)
[2020-11-02] MEDS: POTASSIUM CHLORIDE TABS 20 MEQ TABLET.ER (FP) PO SCH (10:05)
[2020-11-02] MEDS: PRENATAL VITAMINS W/ FOLIC ACID TABLET (FP) PO SCH (10:05)
[2020-11-02] MEDS: PANTOPRAZOLE 20 MG TABLET PO SCH (10:06)
[2020-11-02] MEDS: LIDOCAINE 5% TOPICAL PATCH TP SCH (10:06)
[2020-11-02] MEDS: IBUPROFEN 600 MG TABLET (FP) PO PRN ×2 (10:07→22:05)
[2020-11-02] MEDS: MELATONIN 5 MG TABLETS PO SCH (22:04)
[2020-11-02] MEDS: THIAMINE HCL 100 MG TABLET (FP) PO SCH (22:04)
[2020-11-02] MEDS: LIDOCAINE PATCH REMOVAL MC SCH (22:04)
[2020-11-03] MEDS ORDERED: chlordiazePOXIDE HCL 10 MG CAPSULE PO SCH (05:00)
[2020-11-03] MEDS: metFORMIN HCL 500 MG TABLET (FP) PO SCH (06:09)
[2020-11-03 09:28] VITALS: BP 120/66; PULSE 100; TEMP 97.3
[2020-11-03] MEDS: PRENATAL VITAMINS W/ FOLIC ACID TABLET (FP) PO SCH (09:41)
[2020-11-03] MEDS: PANTOPRAZOLE 20 MG TABLET PO SCH (09:42)
[2020-11-03] MEDS: LIDOCAINE 5% TOPICAL PATCH TP SCH (09:42)
[2020-11-04] MEDS ORDERED: chlordiazePOXIDE HCL 10 MG CAPSULE PO ONE (05:00)
== END 2020-11-03 11:16 | disposition home or self-care (01) | DRG 775 ==
LOC: YASAS 08:58 → Y3N 10:38 → MERGE 10:38
PROVIDERS: ADMIT Allergy & Immunology; ATTEND Allergy & Immunology
PROC: HZ2ZZZZ Detoxification Services for Substance Abuse Treatment (ICD-10-PCS; principal; 2020-10-30)
DX: F10.230 Alcohol dependence with withdrawal, uncomplicated (principal); F17.210 Nicotine dependence, cigarettes, uncomplicated; E87.6 Hypokalemia; E11.9 Type 2 diabetes mellitus without complications; Z79.84 Long term (current) use of oral hypoglycemic drugs; K21.9 Gastro-esophageal reflux disease without esophagitis; K29.20 Alcoholic gastritis without bleeding; G40.509 Epileptic seizures related to external causes, not intractable, without status epilepticus; Z87.81 Personal history of (healed) traumatic fracture; R07.89 Other chest pain; S09.8XXD Other specified injuries of head, subsequent encounter; Y04.2XXD Assault by strike against or bumped into by another person, subsequent encounter
CPT/HCPCS: 36415; 80053; 82962; 85027; 86780; 93005; 93010; C9803; U0003

== ENCOUNTER 2021-04-23 11:06 | Inpatient (IN) | payer OTHER ==
[2021-04-23] MEDS ORDERED: chlordiazePOXIDE HCL 25 MG CAPSULE PO ONE (13:48)
[2021-04-23] MEDS ORDERED: LORazepam 1 MG TABLET PO ONE (13:49)
[2021-04-23] MEDS ORDERED: FAMOTIDINE 20 MG/50 ML IVPB 20 MG/50 ML MG IVPB ONE ×3 (13:53→14:22)
[2021-04-23] MEDS ORDERED: LORazepam 1 MG TABLET ONE ×2 (14:14→17:43)
[2021-04-23 14:39] LABS: BASO % 0.7 % (0-2.0); EOS % 0.3 % (0-4.5); HEMATOCRIT 40.6 % (35.4-49); HEMOGLOBIN 13.7 GM/dL (11.7-16.9); LYMPH % 29.6 % (8-40); MCH 28.4 pg (25.7-33.7); MCHC 33.9 g/dl (32.0-35.9); MEAN CELL VOLUME 83.8 fl (80-96); MEAN PLT VOLUME 7.2 fl (7.5-11.1); MONO % 6.8 % (3.8-10.2); NEUT % 62.6 % (42.8-82.8); PLATELET COUNT 256 10^3/uL (134-434); RBC 4.84 M/mm3 (4.00-5.60); RDW 17.2 % (11.9-15.9); WHITE BLOOD COUNT 6.8 K/mm3 (4.0-10.0)
[2021-04-23] MEDS ORDERED: LORazepam 2 MG/ML SDV VIAL IVPUSH ONE (14:41)
[2021-04-23] MEDS ORDERED: chlordiazePOXIDE HCL 10 MG CAPSULE ONE (15:00)
[2021-04-23 15:08] LABS: ALBUMIN 3.9 g/dl (3.4-5.0); BLOOD UREA NITROGEN 10.8 mg/dL (7-18); CALCIUM 9.1 mg/dL (8.5-10.1)
[2021-04-23 15:11] LABS: CREATININE 0.8 mg/dL (0.55-1.3)
[2021-04-23 15:13] LABS: BILIRUBIN,TOTAL 0.3 mg/dL (0.2-1); TOT PROT 7.9 g/dl (6.4-8.2)
[2021-04-23] MEDS ORDERED: LORazepam 1 MG TABLET PO PRN (16:36)
[2021-04-23] MEDS: INSULIN SLIDING SCALE (NOVOLOG) 1 VIAL SQ SCH ×2 (17:11→22:50)
[2021-04-23] MEDS ORDERED: PANTOPRAZOLE SODIUM 40 MG VIAL ONE (17:43)
[2021-04-23] MEDS: PANTOPRAZOLE SODIUM 40 MG VIAL IVPUSH SCH (17:45)
[2021-04-23] MEDS: LORazepam 1 MG TABLET PO SCH ×2 (17:48→22:50)
[2021-04-23] MEDS ORDERED: FOLIC ACID INJECTION - 1 MG, THIAMINE HCL 100 MG, MULTIVIT INJECTION ADULT 10 ML in SOD... IVPB ONE (17:51)
[2021-04-23] MEDS: LACTATED RINGERS SOLUTION 1,000 ML/1,000 ML INFUS.BAG IV SCH (18:29)
[2021-04-23] MEDS ORDERED: ONDANSETRON 4 MG/2 ML VIAL IVPUSH PRN (20:00)
[2021-04-23 23:23] LABS: METHADONE, UR NEGATIVE (NEGATIVE); URINE AMPHETAMINES NEGATIVE (NEGATIVE); URINE BARBITURATES NEGATIVE (NEGATIVE); URINE BENZODIAZEPINES NEGATIVE (NEGATIVE)
[2021-04-23 23:24] LABS: COCAINE, UR POSITIVE (NEGATIVE); OPIATES, URI NEGATIVE (NEGATIVE); PHENCYCLIDINE,URINE NEGATIVE (NEGATIVE)
[2021-04-24 01:41] VITALS: BMI 24.7
[2021-04-24] MEDS: LORazepam 1 MG TABLET PO SCH ×4 (06:08→22:26)
[2021-04-24] MEDS: INSULIN SLIDING SCALE (NOVOLOG) 1 VIAL SQ SCH ×4 (06:15→21:29)
[2021-04-24 07:44] LABS: BASO % 0.3 % (0-2.0); EOS % 1.2 % (0-4.5); HEMATOCRIT 36.5 % (35.4-49); HEMOGLOBIN 12.4 GM/dL (11.7-16.9); MCH 28.7 pg (25.7-33.7); MEAN CELL VOLUME 84.6 fl (80-96); MEAN PLT VOLUME 7.2 fl (7.5-11.1); MONO % 10.2 % (3.8-10.2); NEUT % 50.3 % (42.8-82.8); PLATELET COUNT 197 10^3/uL (134-434); RBC 4.32 M/mm3 (4.00-5.60); WHITE BLOOD COUNT 5.6 K/mm3 (4.0-10.0)
[2021-04-24 07:58] LABS: CALCIUM 8.3 mg/dL (8.5-10.1)
[2021-04-24 08:01] LABS: CREATININE 0.8 mg/dL (0.55-1.3)
[2021-04-24 08:02] LABS: ALBUMIN 3.2 g/dl (3.4-5.0); BLOOD UREA NITROGEN 13.7 mg/dL (7-18); MAGNESIUM 2.1 mg/dL (1.8-2.4); PHOSPHOROUS 3.8 mg/dL (2.5-4.9)
[2021-04-24 08:03] LABS: BILIRUBIN,TOTAL 0.6 mg/dL (0.2-1)
[2021-04-24 08:10] LABS: TOT PROT 6.4 g/dl (6.4-8.2)
[2021-04-24] MEDS: THIAMINE HCL 200 MG/2 ML VIAL IVPB SCH (09:35)
[2021-04-24] MEDS: MULTIVITAMINS (DAILY MVI) TABLET (FP) PO SCH (09:36)
[2021-04-24] MEDS: FOLIC ACID 1 MG TABLET (FP) PO SCH (09:36)
[2021-04-24] MEDS: PANTOPRAZOLE SODIUM 40 MG VIAL IVPUSH SCH (09:40)
[2021-04-24] MEDS: LACTATED RINGERS SOLUTION 1,000 ML/1,000 ML INFUS.BAG IV SCH ×3 (09:40→18:55)
[2021-04-24] MEDS ORDERED: INSULIN (NOVOLOG) ASPART 100 UNITS/ML 10ML VIAL ONE (11:30)
[2021-04-25] MEDS: LORazepam 1 MG TABLET PO SCH ×4 (05:16→23:00)
[2021-04-25] MEDS: INSULIN SLIDING SCALE (NOVOLOG) 1 VIAL SQ SCH ×4 (06:31→21:26)
[2021-04-25 08:03] LABS: BASO % 0.6 % (0-2.0); EOS % 2.3 % (0-4.5); HEMATOCRIT 39.4 % (35.4-49); HEMOGLOBIN 12.9 GM/dL (11.7-16.9); LYMPH % 36.7 % (8-40); MCH 28.1 pg (25.7-33.7); MCHC 32.8 g/dl (32.0-35.9); MEAN CELL VOLUME 85.9 fl (80-96); MEAN PLT VOLUME 7.8 fl (7.5-11.1); MONO % 9.7 % (3.8-10.2); NEUT % 50.7 % (42.8-82.8); PLATELET COUNT 183 10^3/uL (134-434); RBC 4.58 M/mm3 (4.00-5.60); RDW 16.9 % (11.9-15.9); WHITE BLOOD COUNT 5.2 K/mm3 (4.0-10.0)
[2021-04-25 08:22] LABS: ALBUMIN 3.3 g/dl (3.4-5.0); CALCIUM 8.2 mg/dL (8.5-10.1)
[2021-04-25 08:23] LABS: BLOOD UREA NITROGEN 13.8 mg/dL (7-18); MAGNESIUM 2.2 mg/dL (1.8-2.4)
[2021-04-25 08:26] LABS: CREATININE 0.7 mg/dL (0.55-1.3); PHOSPHOROUS 4.1 mg/dL (2.5-4.9)
[2021-04-25 08:27] LABS: BILIRUBIN,TOTAL 0.5 mg/dL (0.2-1); TOT PROT 6.7 g/dl (6.4-8.2)
[2021-04-25] MEDS: MULTIVITAMINS (DAILY MVI) TABLET (FP) PO SCH (09:48)
[2021-04-25] MEDS: THIAMINE HCL 200 MG/2 ML VIAL IVPB SCH (09:48)
[2021-04-25] MEDS: FOLIC ACID 1 MG TABLET (FP) PO SCH (09:48)
[2021-04-25] MEDS: PANTOPRAZOLE SODIUM 40 MG VIAL IVPUSH SCH ×2 (09:48→21:22)
[2021-04-26] MEDS ORDERED: LORazepam 0.5 MG TABLET PO PRN
[2021-04-26] MEDS: LORazepam 0.5 MG TABLET PO SCH ×2 (05:17→11:39)
[2021-04-26] MEDS: INSULIN SLIDING SCALE (NOVOLOG) 1 VIAL SQ SCH ×2 (06:16→11:37)
[2021-04-26] MEDS: MULTIVITAMINS (DAILY MVI) TABLET (FP) PO SCH (09:11)
[2021-04-26] MEDS: FOLIC ACID 1 MG TABLET (FP) PO SCH (09:11)
[2021-04-26] MEDS: THIAMINE HCL 200 MG/2 ML VIAL IVPB SCH (09:11)
[2021-04-26] MEDS: PANTOPRAZOLE SODIUM 40 MG VIAL IVPUSH SCH (09:11)
[2021-04-26 11:53] VITALS: BP 129/75; PULSE 70; TEMP 98
[2021-04-27] MEDS ORDERED: LORazepam 0.5 MG TABLET PO ONE (05:00)
== END 2021-04-26 12:30 | disposition home or self-care (01) | DRG 241 ==
LOC: JER 11:06 → JERBED 15:52 → J4W 20:35
PROVIDERS: ATTEND Internal Medicine
PROC: HZ2ZZZZ Detoxification Services for Substance Abuse Treatment (ICD-10-PCS; principal; 2021-04-23)
DX: K29.21 Alcoholic gastritis with bleeding (principal); F10.139 Alcohol abuse with withdrawal, unspecified; E11.9 Type 2 diabetes mellitus without complications; R11.2 Nausea with vomiting, unspecified; B96.81 Helicobacter pylori [H. pylori] as the cause of diseases classified elsewhere; F41.9 Anxiety disorder, unspecified
CPT/HCPCS: 36415; 71045-TC-FY; 80053; 80061; 80307; 82962; 83036; 83690; 83721; 83735; 84100; 84439; 84443; 85025; 93005; 93010; 97116-GP; 97161-GP; 99285-25; C9803; U0003; U0005

== ENCOUNTER 2021-07-27 18:53 | Inpatient (IN) | payer OTHER ==
[2021-07-27 19:00] VITALS: BMI 27.4
[2021-07-27] MEDS ORDERED: ONDANSETRON 4 MG/2 ML VIAL IVPUSH ONE (20:28)
[2021-07-27] MEDS ORDERED: SODIUM CHLORIDE 1,000 ML IV STA (20:28)
[2021-07-27] MEDS ORDERED: FAMOTIDINE 20 MG/50 ML IVPB 20 MG/50 ML MG IVPB ONE ×2 (20:28→20:50)
[2021-07-27] MEDS ORDERED: MAG HYDROX/AL HYDROX/SIMETH -MYLANTA- ORAL SUSPENSION PO ONE (20:28)
[2021-07-27] MEDS ORDERED: diazePAM CARPU-JECT 10 MG/2 ML DISP.SYRIN IVPUSH ONE (20:29)
[2021-07-27] MEDS ORDERED: MAG HYDROX/AL HYDROX/SIMETH 30 ML UNIT-DOSE CUP ONE (20:50)
[2021-07-27] MEDS ORDERED: diazePAM CARPU-JECT 10 MG/2 ML DISP.SYRIN ONE (20:50)
[2021-07-27 21:36] LABS: BASO % 0.5 % (0-2.0); EOS % 0.9 % (0-4.5); HEMATOCRIT 43.4 % (35.4-49); LYMPH % 49.2 % (8-40); MCH 30.1 pg (25.7-33.7); MCHC 34.6 g/dl (32.0-35.9); MEAN CELL VOLUME 86.9 fl (80-96); MEAN PLT VOLUME 7.1 fl (7.5-11.1); MONO % 6.8 % (3.8-10.2); NEUT % 42.6 % (42.8-82.8); PLATELET COUNT 275 10^3/uL (134-434); RBC 4.99 M/mm3 (4.00-5.60); RDW 18.9 % (11.9-15.9); WHITE BLOOD COUNT 5.5 K/mm3 (4.0-10.0)
[2021-07-27 21:37] LABS: LIPASE 115 U/L (73-393)
[2021-07-27 21:39] LABS: ALBUMIN 3.9 g/dl (3.4-5.0); BLOOD UREA NITROGEN 10.3 mg/dL (7-18); CALCIUM 8.4 mg/dL (8.5-10.1); MAGNESIUM 2.3 mg/dL (1.8-2.4)
[2021-07-27 21:42] LABS: CREATININE 0.7 mg/dL (0.55-1.3)
[2021-07-27 21:43] LABS: TOT PROT 8.3 g/dl (6.4-8.2)
[2021-07-27 21:49] LABS: BILIRUBIN,TOTAL 0.2 mg/dL (0.2-1)
[2021-07-27] MEDS ORDERED: ONDANSETRON 4 MG/2 ML VIAL ONE (22:33)
[2021-07-27] MEDS ORDERED: METOCLOPRAMIDE HCL INJECTION 10 MG/2 ML VIAL IVPUSH ONE (23:40)
[2021-07-27] MEDS ORDERED: DEXTROSE 5%-NORMAL SALINE 1,000 ML IV SCH (23:45)
[2021-07-28] MEDS ORDERED: LORazepam 1 MG TABLET PO PRN (00:02)
[2021-07-28] MEDS ORDERED: FOLIC ACID 5 MG/1 ML SQ ONE (00:06)
[2021-07-28] MEDS ORDERED: SODIUM CHLORIDE 1,000 ML IV STA (00:25)
[2021-07-28] MEDS ORDERED: ONDANSETRON 4 MG/2 ML VIAL IVPUSH PRN (00:26)
[2021-07-28] MEDS ORDERED: ACETAMINOPHEN 1000 MG/100 ML VIAL IVPB PRN (00:30)
[2021-07-28] MEDS ORDERED: LACTATED RINGERS SOLUTION 1,000 ML/1,000 ML INFUS.BAG IV STA ×2 (00:34→00:35)
[2021-07-28] MEDS ORDERED: METOCLOPRAMIDE HCL INJECTION 10 MG/2 ML VIAL ONE (01:35)
[2021-07-28] MEDS ORDERED: PANTOPRAZOLE 40 MG TABLET ONE ×2 (01:35→09:42)
[2021-07-28] MEDS ORDERED: LORazepam 1 MG TABLET ONE ×3 (01:36→10:46)
[2021-07-28] MEDS: PANTOPRAZOLE 40 MG TABLET PO SCH ×3 (01:51→22:12)
[2021-07-28] MEDS: LORazepam 1 MG TABLET PO SCH ×5 (01:51→22:12)
[2021-07-28] MEDS ORDERED: MELATONIN 5 MG TABLETS PO ONE (02:15)
[2021-07-28] MEDS ORDERED: MELATONIN 5 MG TABLETS ONE ×2 (03:41→03:42)
[2021-07-28] MEDS ORDERED: METOCLOPRAMIDE HCL INJECTION 10 MG/2 ML VIAL IVPUSH PRN (04:00)
[2021-07-28] MEDS ORDERED: LACTATED RINGERS SOLUTION 1,000 ML/1,000 ML INFUS.BAG IV SCH (05:15)
[2021-07-28 06:03] LABS: BASO % 0.4 % (0-2.0); EOS % 1.8 % (0-4.5); LYMPH % 45.5 % (8-40); MCH 29.8 pg (25.7-33.7); MCHC 34.3 g/dl (32.0-35.9); MEAN CELL VOLUME 86.9 fl (80-96); MEAN PLT VOLUME 7.3 fl (7.5-11.1); MONO % 7.2 % (3.8-10.2); NEUT % 45.1 % (42.8-82.8); PLATELET COUNT 230 10^3/uL (134-434); RBC 4.37 M/mm3 (4.00-5.60); RDW 18.7 % (11.9-15.9); WHITE BLOOD COUNT 5.3 K/mm3 (4.0-10.0)
[2021-07-28 06:21] LABS: INR 1.11 (0.83-1.09); PROTHROMBIN TIME (PATIENT) 12.5 SEC (9.7-13.0)
[2021-07-28 06:23] LABS: ACTIVATED PTT 31.1 SECONDS (25.2-36.5)
[2021-07-28 06:24] LABS: BLOOD UREA NITROGEN 10.2 mg/dL (7-18); MAGNESIUM 1.6 mg/dL (1.8-2.4)
[2021-07-28 06:27] LABS: CREATININE 0.7 mg/dL (0.55-1.3)
[2021-07-28 06:28] LABS: PHOSPHOROUS 3.1 mg/dL (2.5-4.9)
[2021-07-28 06:30] LABS: BILIRUBIN,TOTAL 0.2 mg/dL (0.2-1); TOT PROT 6.7 g/dl (6.4-8.2)
[2021-07-28 07:10] LABS: ALBUMIN 3.1 g/dl (3.4-5.0); CALCIUM 7.7 mg/dL (8.5-10.1)
[2021-07-28] MEDS ORDERED: MAGNESIUM SULF 50% (8.12 MEQ/2 ML-1 GM VIAL) IVPB ONE (07:37)
[2021-07-28] MEDS: INSULIN SLIDING SCALE (NOVOLOG) 1 VIAL SQ SCH ×4 (09:30→22:12)
[2021-07-28] MEDS ORDERED: THIAMINE HCL 200 MG/2 ML VIAL ONE (09:42)
[2021-07-28] MEDS ORDERED: ENOXAPARIN NA (PORCINE) 40 MG/0.4 ML DISP.SYRIN SQ ONE (09:42)
[2021-07-28] MEDS ORDERED: MAGNESIUM SULFATE IN WATER 2 GM/50 ML IVPB IVPB ONE (09:43)
[2021-07-28] MEDS ORDERED: MAGNESIUM 1GM/D5W - 1 GM/100 ML IVPB IVPB ONE (09:47)
[2021-07-28] MEDS ORDERED: ENOXAPARIN NA (PORCINE) 40 MG/0.4 ML DISP.SYRIN SQ SCH (10:00)
[2021-07-28] MEDS ORDERED: MULTIVIT-MINERALS ORAL LIQUID PO SCH (10:00)
[2021-07-28] MEDS ORDERED: THIAMINE HCL 200 MG/2 ML VIAL IVPB SCH (10:00)
[2021-07-28] MEDS: FOLIC ACID 1 MG TABLET (FP) PO SCH (10:27)
[2021-07-28] MEDS ORDERED: FOLIC ACID 1 MG TABLET (FP) ONE (10:47)
[2021-07-28] MEDS ORDERED: FLU VACC QS2021-22(6MOS UP)/PF 60 MCG/0.5 ML SYRINGE IM ONE (15:56)
[2021-07-29] MEDS ORDERED: LORazepam 1 MG TABLET PO PRN (01:54)
[2021-07-29] MEDS ORDERED: ONDANSETRON 4 MG/2 ML VIAL IVPUSH PRN (01:54)
[2021-07-29] MEDS: LORazepam 1 MG TABLET PO SCH ×4 (05:59→22:01)
[2021-07-29] MEDS: INSULIN SLIDING SCALE (NOVOLOG) 1 VIAL SQ SCH ×4 (06:02→21:56)
[2021-07-29] MEDS ORDERED: FAMOTIDINE 10 MG TABLET PO ONE (06:07)
[2021-07-29 07:53] LABS: BASO % 0.4 % (0-2.0); EOS % 2.1 % (0-4.5); HEMATOCRIT 38.4 % (35.4-49); HEMOGLOBIN 13.5 GM/dL (11.7-16.9); LYMPH % 30.5 % (8-40); MCH 30.4 pg (25.7-33.7); MCHC 35.2 g/dl (32.0-35.9); MEAN CELL VOLUME 86.6 fl (80-96); MEAN PLT VOLUME 7.7 fl (7.5-11.1); MONO % 8.1 % (3.8-10.2); NEUT % 58.9 % (42.8-82.8); PLATELET COUNT 206 10^3/uL (134-434); RBC 4.43 M/mm3 (4.00-5.60); RDW 17.9 % (11.9-15.9); WHITE BLOOD COUNT 5.2 K/mm3 (4.0-10.0)
[2021-07-29 08:09] LABS: ALBUMIN 3.3 g/dl (3.4-5.0); BLOOD UREA NITROGEN 9.6 mg/dL (7-18); CALCIUM 8.7 mg/dL (8.5-10.1); MAGNESIUM 2.2 mg/dL (1.8-2.4)
[2021-07-29 08:12] LABS: CREATININE 0.8 mg/dL (0.55-1.3)
[2021-07-29 08:13] LABS: BILIRUBIN,TOTAL 0.6 mg/dL (0.2-1); PHOSPHOROUS 3.3 mg/dL (2.5-4.9); TOT PROT 7.1 g/dl (6.4-8.2)
[2021-07-29] MEDS: FOLIC ACID 1 MG TABLET (FP) PO SCH (09:25)
[2021-07-29] MEDS: THIAMINE HCL 200 MG/2 ML VIAL IVPB SCH (09:25)
[2021-07-29] MEDS: PANTOPRAZOLE 40 MG TABLET PO SCH ×2 (09:25→21:56)
[2021-07-29] MEDS: ENOXAPARIN NA (PORCINE) 40 MG/0.4 ML DISP.SYRIN SQ SCH (09:25)
[2021-07-29] MEDS ORDERED: PT OWN MED DRAWER 7, Y5N ONE (09:28)
[2021-07-29] MEDS: MULTIVIT-MINERALS ORAL LIQUID PO SCH (09:29)
[2021-07-30] MEDS ORDERED: LORazepam 1 MG TABLET PO SCH (05:00)
[2021-07-30] MEDS: LORazepam 1 MG TABLET PO SCH ×2 (06:09→11:24)
[2021-07-30] MEDS: INSULIN SLIDING SCALE (NOVOLOG) 1 VIAL SQ SCH ×2 (06:13→11:20)
[2021-07-30] MEDS ORDERED: INSULIN SLIDING SCALE (NOVOLOG) 1 VIAL SQ ONE (08:01)
[2021-07-30 08:09] LABS: BASO % 0.5 % (0-2.0); EOS % 2.6 % (0-4.5); HEMOGLOBIN 13.3 GM/dL (11.7-16.9); LYMPH % 44.4 % (8-40); MCH 29.9 pg (25.7-33.7); MEAN CELL VOLUME 87.9 fl (80-96); MEAN PLT VOLUME 7.9 fl (7.5-11.1); MONO % 8.9 % (3.8-10.2); NEUT % 43.6 % (42.8-82.8); PLATELET COUNT 192 10^3/uL (134-434); RBC 4.44 M/mm3 (4.00-5.60); RDW 18.2 % (11.9-15.9); WHITE BLOOD COUNT 4.8 K/mm3 (4.0-10.0)
[2021-07-30 08:32] LABS: ALBUMIN 3.3 g/dl (3.4-5.0); BLOOD UREA NITROGEN 10.8 mg/dL (7-18); CALCIUM 8.4 mg/dL (8.5-10.1); MAGNESIUM 2.3 mg/dL (1.8-2.4)
[2021-07-30 08:35] LABS: CREATININE 0.8 mg/dL (0.55-1.3)
[2021-07-30 08:36] LABS: PHOSPHOROUS 4.1 mg/dL (2.5-4.9)
[2021-07-30 08:37] LABS: BILIRUBIN,TOTAL 0.6 mg/dL (0.2-1); TOT PROT 7.3 g/dl (6.4-8.2)
[2021-07-30] MEDS: ENOXAPARIN NA (PORCINE) 40 MG/0.4 ML DISP.SYRIN SQ SCH (10:19)
[2021-07-30] MEDS: FOLIC ACID 1 MG TABLET (FP) PO SCH (10:19)
[2021-07-30] MEDS: THIAMINE HCL 200 MG/2 ML VIAL IVPB SCH (10:19)
[2021-07-30] MEDS: MULTIVIT-MINERALS ORAL LIQUID PO SCH (10:19)
[2021-07-30] MEDS: PANTOPRAZOLE 40 MG TABLET PO SCH (10:19)
[2021-07-30 13:49] VITALS: BP 125/87; PULSE 77; TEMP 98.1
[2021-07-31] MEDS ORDERED: LORazepam 0.5 MG TABLET PO PRN ×2
[2021-07-31] MEDS ORDERED: LORazepam 0.5 MG TABLET PO SCH ×2 (05:00)
[2021-08-01] MEDS ORDERED: LORazepam 0.5 MG TABLET PO ONE ×2 (05:00)
== END 2021-07-30 14:00 | disposition home or self-care (01) | DRG 774 ==
LOC: JER 18:53 → JERBED 22:29 → J4S 07-28 15:06
PROVIDERS: ADMIT Internal Medicine
DX: F10.239 Alcohol dependence with withdrawal, unspecified (principal); F14.10 Cocaine abuse, uncomplicated; E11.9 Type 2 diabetes mellitus without complications; K29.20 Alcoholic gastritis without bleeding; R10.9 Unspecified abdominal pain; R11.2 Nausea with vomiting, unspecified; R25.1 Tremor, unspecified; R45.1 Restlessness and agitation; F41.9 Anxiety disorder, unspecified
CPT/HCPCS: 36415; 71046-TC-FY; 80053; 82550; 82553; 82962; 83690; 83735; 84100; 84443; 84484; 85025; 85610; 85730; 90686; 93005; 93010; 97116-GP; 97161-GP; 99285-25; C9803; G0008; U0003; U0005

== ENCOUNTER 2021-11-06 14:50 | Inpatient (IN) | payer OTHER ==
[2021-11-06 15:07] VITALS: BMI 27.3
[2021-11-06] MEDS ORDERED: ONDANSETRON 4 MG/2 ML VIAL IVPUSH ONE ×2 (18:59→22:25)
[2021-11-06] MEDS ORDERED: FOLIC ACID INJECTION - 1 MG, THIAMINE HCL 100 MG, MULTIVIT INJECTION ADULT 10 ML in SOD... IVPB ONE (19:00)
[2021-11-06] MEDS ORDERED: LORazepam 2 MG/ML SDV VIAL IVPUSH ONE (19:00)
[2021-11-06] MEDS ORDERED: ONDANSETRON 4 MG/2 ML VIAL ONE (19:46)
[2021-11-06 20:27] LABS: BASO % 0.3 % (0-2.0); EOS % 0.1 % (0-4.5); HEMATOCRIT 41.2 % (35.4-49); HEMOGLOBIN 13.5 GM/dL (11.7-16.9); LYMPH % 30.9 % (8-40); MCH 27.6 pg (25.7-33.7); MCHC 32.8 g/dl (32.0-35.9); MEAN CELL VOLUME 84.2 fl (80-96); MEAN PLT VOLUME 7.6 fl (7.5-11.1); MONO % 4.9 % (3.8-10.2); NEUT % 63.8 % (42.8-82.8); PLATELET COUNT 180 10^3/uL (134-434)
[2021-11-06 20:40] LABS: INR 0.98 (0.83-1.09); PROTHROMBIN TIME (PATIENT) 11.3 SEC (9.7-13.0)
[2021-11-06 20:42] LABS: ACTIVATED PTT 27.8 SECONDS (25.2-36.5)
[2021-11-06 20:46] LABS: CHLORIDE 97 mmol/L (98-107); SODIUM 136 mmol/L (136-145)
[2021-11-06 21:04] LABS: GLUCOSE,RANDOM 125 mg/dL (74-106)
[2021-11-06 21:05] LABS: ALBUMIN 4.3 g/dl (3.4-5.0); ANION GAP 13 MMOL/L (8-16); CO2 25 mmol/L (21-32)
[2021-11-06 21:07] LABS: SGPT/ALT 41 U/L (13-61)
[2021-11-06 21:08] LABS: CREATININE 0.8 mg/dL (0.55-1.3)
[2021-11-06 21:09] LABS: BILIRUBIN,TOTAL 0.5 mg/dL (0.2-1); TOT PROT 8.4 g/dl (6.4-8.2)
[2021-11-06 21:11] LABS: ALK PHOS 113 U/L (45-117)
[2021-11-06 21:13] LABS: EPI CELLS 6 /uL (0-25.1); HYALINE CASTS 0 /uL (0-3.1); PH,URINE 6.5 (5.0-8.0); URINE APPEARANCE CLEAR; URINE BACTERIA 5 /uL (0-1359); URINE BILIRUBIN NEGATIVE (NEGATIVE); URINE COLOR YELLOW; URINE GLUCOSE (UA) NEGATIVE (NEGATIVE); URINE KETONE TRACE (NEGATIVE); URINE LEUK ESTERASE NEGATIVE (NEGATIVE); URINE NITRITE NEGATIVE (NEGATIVE); URINE PROTEIN 2+ (NEGATIVE); URINE RBC 5 /uL (0-23.9); URINE WBC 5 /uL (0-25.8)
[2021-11-06 21:19] LABS: COCAINE, UR NEGATIVE (NEGATIVE); OPIATES, URI NEGATIVE (NEGATIVE); PHENCYCLIDINE,URINE NEGATIVE (NEGATIVE)
[2021-11-06 21:23] LABS: URINE BENZODIAZEPINES NEGATIVE (NEGATIVE)
[2021-11-06 21:39] LABS: URINE BARBITURATES NEGATIVE (NEGATIVE)
[2021-11-06 21:48] LABS: METHADONE, UR NEGATIVE (NEGATIVE); URINE AMPHETAMINES NEGATIVE (NEGATIVE)
[2021-11-06 21:50] LABS: SGOT/AST 81 U/L (15-37)
[2021-11-06] MEDS ORDERED: LORazepam 2 MG/ML SDV VIAL IVPB ONE (22:25)
[2021-11-07] MEDS ORDERED: ONDANSETRON 4 MG/2 ML VIAL ONE (00:02)
[2021-11-07] MEDS ORDERED: LORazepam 1 MG TABLET PO PRN (00:59)
[2021-11-07] MEDS ORDERED: LORazepam 2 MG/ML SDV VIAL IVPUSH PRN (01:03)
[2021-11-07] MEDS ORDERED: LORazepam 1 MG TABLET ONE ×3 (04:47→17:15)
[2021-11-07] MEDS: LORazepam 1 MG TABLET PO SCH ×3 (05:00→17:17)
[2021-11-07 06:58] LABS: HEMOGLOBIN 12.1 GM/dL (11.7-16.9); MCH 27.8 pg (25.7-33.7); MCHC 32.7 g/dl (32.0-35.9); MEAN CELL VOLUME 84.9 fl (80-96); MEAN PLT VOLUME 7.9 fl (7.5-11.1); PLATELET COUNT 113 10^3/uL (134-434); RBC 4.36 M/mm3 (4.00-5.60); RDW 16.6 % (11.9-15.9); WHITE BLOOD COUNT 6.2 K/mm3 (4.0-10.0)
[2021-11-07 07:16] LABS: ALBUMIN 3.6 g/dl (3.4-5.0); CALCIUM 7.8 mg/dL (8.5-10.1)
[2021-11-07 07:17] LABS: BLOOD UREA NITROGEN 6.7 mg/dL (7-18); MAGNESIUM 2.1 mg/dL (1.8-2.4)
[2021-11-07 07:19] LABS: CREATININE 0.7 mg/dL (0.55-1.3)
[2021-11-07 07:21] LABS: BILIRUBIN,TOTAL 0.7 mg/dL (0.2-1)
[2021-11-07] MEDS: INSULIN SLIDING SCALE (NOVOLOG) 1 VIAL SQ SCH ×3 (07:54→17:10)
[2021-11-07] MEDS: KCL 10 MEQ IVPB 10 MEQ/100 ML INFUS.BAG IVPB SCH ×3 (08:30→12:30)
[2021-11-07] MEDS ORDERED: FOLIC ACID 1 MG TABLET (FP) ONE (08:46)
[2021-11-07] MEDS ORDERED: POTASSIUM CHLORIDE TABS 20 MEQ TABLET.ER (FP) PO ONE (08:46)
[2021-11-07] MEDS ORDERED: PANTOPRAZOLE SODIUM 40 MG/100 ML BAG IVPB ONE (08:46)
[2021-11-07] MEDS ORDERED: ENOXAPARIN NA (PORCINE) 40 MG/0.4 ML DISP.SYRIN SQ ONE (08:47)
[2021-11-07] MEDS ORDERED: KCL 10 MEQ IVPB 10 MEQ/100 ML INFUS.BAG IVPB ONE ×3 (08:47→13:07)
[2021-11-07] MEDS ORDERED: THIAMINE HCL 200 MG/2 ML VIAL ONE (08:56)
[2021-11-07] MEDS ORDERED: POTASSIUM CHLORIDE TABS 20 MEQ TABLET.ER (FP) PO SCH (10:00)
[2021-11-07] MEDS ORDERED: FOLIC ACID 1 MG TABLET (FP) PO SCH (10:00)
[2021-11-07] MEDS ORDERED: THIAMINE HCL 200 MG/2 ML VIAL IVPB SCH (10:00)
[2021-11-07] MEDS ORDERED: PANTOPRAZOLE SODIUM 40 MG VIAL IVPUSH SCH (10:00)
[2021-11-07] MEDS ORDERED: ENOXAPARIN NA (PORCINE) 40 MG/0.4 ML DISP.SYRIN SQ SCH (10:00)
[2021-11-07] MEDS ORDERED: TRIMETHOBENZAMIDE HCL 200MG/2ML INJ IM PRN (10:40)
[2021-11-07] MEDS ORDERED: METOCLOPRAMIDE HCL 10 MG TABLET (FP) PO SCH (11:00)
[2021-11-07 11:30] VITALS: TEMP 98.2
[2021-11-07] MEDS ORDERED: GABAPENTIN 100 MG CAPSULE PO SCH (14:00)
[2021-11-07] MEDS ORDERED: GABAPENTIN 100 MG CAPSULE ONE (16:11)
[2021-11-07 19:55] VITALS: BP 133/68; PULSE 81
[2021-11-07] MEDS ORDERED: LISINOPRIL 10 MG TABLET PO SCH (22:00)
[2021-11-08] MEDS ORDERED: LORazepam 1 MG TABLET PO SCH (05:00)
[2021-11-09] MEDS ORDERED: LORazepam 0.5 MG TABLET PO PRN
[2021-11-09] MEDS ORDERED: LORazepam 0.5 MG TABLET PO SCH (05:00)
[2021-11-10] MEDS ORDERED: LORazepam 0.5 MG TABLET PO ONE (05:00)
== END 2021-11-07 19:56 | disposition other institution (70) | DRG 775 ==
LOC: JER 14:50 → JERBED 22:23
PROVIDERS: ADMIT Internal Medicine; ATTEND Internal Medicine
PROC: HZ2ZZZZ Detoxification Services for Substance Abuse Treatment (ICD-10-PCS; principal; 2021-11-06)
DX: F10.239 Alcohol dependence with withdrawal, unspecified (principal); I10 Essential (primary) hypertension; R74.01 Elevation of levels of liver transaminase levels; E11.9 Type 2 diabetes mellitus without complications; R94.31 Abnormal electrocardiogram [ECG] [EKG]
CPT/HCPCS: 36415; 71046-TC-FY; 74176-TC; 80053; 80307; 81003; 82043; 82570; 82962; 83036; 83690; 83735; 84100; 84484; 85025; 85027; 85610; 85730; 87086; 93005; 93010; 99285-25; C9803; U0003; U0005

== ENCOUNTER 2021-11-07 20:44 | Inpatient (IN) | payer OTHER ==
[2021-11-08 00:31] VITALS: BMI 31.0
[2021-11-08] MEDS ORDERED: LORazepam 1 MG TABLET PO PRN (05:03)
[2021-11-08] MEDS ORDERED: IBUPROFEN 400 MG TABLET (FP) PO PRN (05:03)
[2021-11-08] MEDS ORDERED: MENTHOL/PHENOL 1 EACH UD MM PRN (05:03)
[2021-11-08] MEDS ORDERED: MAG HYDROX/AL HYDROX/SIMETH 30 ML UNIT-DOSE CUP PO PRN (05:03)
[2021-11-08] MEDS ORDERED: METHOCARBAMOL 500 MG TABLET PO PRN (05:03)
[2021-11-08] MEDS ORDERED: ONDANSETRON *ODT* 4 MG TABLET SL PRN (05:03)
[2021-11-08] MEDS ORDERED: MAGNESIUM CITRATE 300 ML BOTTLE PO PRN (05:03)
[2021-11-08] MEDS ORDERED: BISMUTH SUBSALICYLATE 524 MG/30 ML PO PRN (05:03)
[2021-11-08] MEDS ORDERED: ACETAMINOPHEN 325 MG TABLET (FP) PO PRN ×2 (05:03)
[2021-11-08] MEDS ORDERED: MAGNESIUM HYDROX 2400MG/30ML ORAL SUSPENSION 30 ML CUP PO PRN (05:03)
[2021-11-08] MEDS: LORazepam 1 MG TABLET PO SCH ×4 (06:00→22:35)
[2021-11-08] MEDS ORDERED: LORazepam 2 MG TABLET ONE (06:00)
[2021-11-08] MEDS: PRENATAL VITAMINS W/ FOLIC ACID TABLET (FP) PO SCH (10:45)
[2021-11-08] MEDS: MELATONIN 5 MG TABLETS PO SCH (22:36)
[2021-11-08] MEDS: THIAMINE HCL 100 MG TABLET (FP) PO SCH (22:36)
[2021-11-09] MEDS: LORazepam 1 MG TABLET PO SCH ×4 (05:40→22:39)
[2021-11-09] MEDS: PRENATAL VITAMINS W/ FOLIC ACID TABLET (FP) PO SCH (10:41)
[2021-11-09] MEDS ORDERED: POTASSIUM CHLORIDE TABS 20 MEQ TABLET.ER (FP) PO ONE (15:29)
[2021-11-09] MEDS: MELATONIN 5 MG TABLETS PO SCH (22:40)
[2021-11-09] MEDS: THIAMINE HCL 100 MG TABLET (FP) PO SCH (22:40)
[2021-11-09] MEDS: CALCIUM CARBONATE 650 MG TABLET PO SCH (22:40)
[2021-11-10] MEDS ORDERED: LORazepam 0.5 MG TABLET PO PRN
[2021-11-10] MEDS: LORazepam 0.5 MG TABLET PO SCH ×2 (05:42→10:33)
[2021-11-10 06:56] VITALS: TEMP 97.5
[2021-11-10 09:32] VITALS: BP 150/90; PULSE 80
[2021-11-10] MEDS: CALCIUM CARBONATE 650 MG TABLET PO SCH (10:34)
[2021-11-10] MEDS: PRENATAL VITAMINS W/ FOLIC ACID TABLET (FP) PO SCH (10:34)
[2021-11-10 12:36] LABS: HEMATOCRIT 38.4 % (35.4-49); HEMOGLOBIN 12.2 GM/dL (11.7-16.9); MCH 27.6 pg (25.7-33.7); MCHC 31.9 g/dl (32.0-35.9); MEAN CELL VOLUME 86.8 fl (80-96); MEAN PLT VOLUME 8.7 fl (7.5-11.1); PLATELET COUNT 101 10^3/uL (134-434); RBC 4.43 M/mm3 (4.00-5.60); RDW 16.4 % (11.9-15.9); WHITE BLOOD COUNT 4.7 K/mm3 (4.0-10.0)
[2021-11-10 12:43] LABS: ALBUMIN 3.8 g/dl (3.4-5.0); BLOOD UREA NITROGEN 10.4 mg/dL (7-18)
[2021-11-10 12:44] LABS: CREATININE 0.7 mg/dL (0.55-1.3)
[2021-11-10 12:46] LABS: BILIRUBIN,TOTAL 0.3 mg/dL (0.2-1); TOT PROT 7.6 g/dl (6.4-8.2)
[2021-11-10 12:50] LABS: CALCIUM 9.4 mg/dL (8.5-10.1)
[2021-11-10 13:37] LABS: HIV INTERPRETATION NEGATIVE (NEGATIVE)
[2021-11-10] MEDS ORDERED: INSULIN SLIDING SCALE (NOVOLOG) 1 VIAL SQ SCH (16:30)
[2021-11-11] MEDS ORDERED: LORazepam 0.5 MG TABLET PO ONE (05:00)
== END 2021-11-10 11:06 | disposition home or self-care (01) | DRG 775 ==
LOC: YASAS 20:44 → Y3N 11-08 05:25
PROVIDERS: ADMIT Allergy & Immunology; ATTEND Allergy & Immunology
PROC: HZ2ZZZZ Detoxification Services for Substance Abuse Treatment (ICD-10-PCS; principal; 2021-11-08)
DX: F10.230 Alcohol dependence with withdrawal, uncomplicated (principal); E83.51 Hypocalcemia; E87.6 Hypokalemia; E78.00 Pure hypercholesterolemia, unspecified; E11.9 Type 2 diabetes mellitus without complications; Z79.84 Long term (current) use of oral hypoglycemic drugs; K21.9 Gastro-esophageal reflux disease without esophagitis; K29.20 Alcoholic gastritis without bleeding; R82.998 Other abnormal findings in urine; Z86.69 Personal history of other diseases of the nervous system and sense organs
CPT/HCPCS: 36415; 80053; 82962; 85027; 86780; 87389; C9803; U0003; U0005

== ENCOUNTER 2021-11-11 18:07 | Emergency (ER) | payer OTHER ==
[2021-11-11 18:12] VITALS: BP 117/78; PULSE 94; TEMP 97.7; BMI 24.4
[2021-11-11] MEDS ORDERED: ONDANSETRON 4 MG/2 ML VIAL IVPUSH ONE (19:06)
[2021-11-11] MEDS ORDERED: SODIUM CHLORIDE 1,000 ML IV STA (19:06)
[2021-11-11] MEDS ORDERED: morphine CARPU-JECT 4 MG/1 ML DISP.SYRIN IVPUSH ONE (19:06)
[2021-11-11] MEDS ORDERED: ONDANSETRON 4 MG/2 ML VIAL ONE (19:20)
[2021-11-11] MEDS ORDERED: morphine SULFATE 4 MG/ML VIAL ONE (19:20)
[2021-11-11 19:45] LABS: BASO % 0.7 % (0-2.0); EOS % 2.3 % (0-4.5); HEMATOCRIT 36.5 % (35.4-49); HEMOGLOBIN 12.4 GM/dL (11.7-16.9); LYMPH % 28.4 % (8-40); MCH 28.7 pg (25.7-33.7); MCHC 33.8 g/dl (32.0-35.9); MEAN CELL VOLUME 84.9 fl (80-96); MEAN PLT VOLUME 8.1 fl (7.5-11.1); MONO % 13.8 % (3.8-10.2); NEUT % 54.8 % (42.8-82.8); PLATELET COUNT 169 10^3/uL (134-434); RDW 16.6 % (11.9-15.9); WHITE BLOOD COUNT 7.1 K/mm3 (4.0-10.0)
[2021-11-11 19:48] LABS: PH,URINE 6.5 (5.0-8.0); URINE APPEARANCE CLEAR; URINE BILIRUBIN NEGATIVE (NEGATIVE); URINE COLOR YELLOW; URINE GLUCOSE (UA) NEGATIVE (NEGATIVE); URINE KETONE NEGATIVE (NEGATIVE); URINE LEUK ESTERASE NEGATIVE (NEGATIVE); URINE NITRITE NEGATIVE (NEGATIVE); URINE PROTEIN NEGATIVE (NEGATIVE); URINE UROBILINOGEN 0.2 mg/dL (0.2-1.0)
[2021-11-11 20:05] LABS: BLOOD UREA NITROGEN 13.4 mg/dL (7-18); CALCIUM 9.2 mg/dL (8.5-10.1)
[2021-11-11 20:06] LABS: ALBUMIN 3.8 g/dl (3.4-5.0)
[2021-11-11 20:09] LABS: CREATININE 0.7 mg/dL (0.55-1.3)
[2021-11-11 20:10] LABS: BILIRUBIN,TOTAL 0.4 mg/dL (0.2-1); TOT PROT 7.9 g/dl (6.4-8.2)
[2021-11-11 20:45] LABS: PLATELET ESTIMATE NORMAL
[2021-11-11] MEDS ORDERED: chlordiazePOXIDE HCL 25 MG CAPSULE PO ONE (20:59)
[2021-11-11] MEDS ORDERED: chlordiazePOXIDE HCL 25 MG CAPSULE ONE (21:16)
== END 2021-11-11 22:32 | disposition home or self-care (01) ==
LOC: JER 18:07
PROC: 3E033NZ Introduction of Analgesics, Hypnotics, Sedatives into Peripheral Vein, Percutaneous Approach (ICD-10-PCS; principal; 2021-11-11)
PROC: 3E033GC Introduction of Other Therapeutic Substance into Peripheral Vein, Percutaneous Approach (ICD-10-PCS; 2021-11-11)
PROC: 3E0337Z Introduction of Electrolytic and Water Balance Substance into Peripheral Vein, Percutaneous Approach (ICD-10-PCS; 2021-11-11)
DX: R10.32 Left lower quadrant pain (principal)
CPT/HCPCS: 36415; 74177-TC; 80053; 81003; 83690; 85025; 87086; 96361; 96374; 96375; 99285-25; Q9967

== ENCOUNTER 2022-01-27 | Observation (INO) | payer OTHER ==
[2022-01-27] MEDS ORDERED: chlordiazePOXIDE HCL 25 MG CAPSULE PO ONE (01:46)
[2022-01-27] MEDS ORDERED: chlordiazePOXIDE HCL 25 MG CAPSULE ONE ×2 (01:57→11:30)
[2022-01-27] MEDS ORDERED: SODIUM CHLORIDE 1,000 ML IV STA (01:59)
[2022-01-27] MEDS ORDERED: FAMOTIDINE 20 MG/50 ML IVPB 20 MG/50 ML MG IVPB ONE (01:59)
[2022-01-27 02:28] LABS: BASO % 0.8 % (0-2.0); EOS % 1.3 % (0-4.5); HEMATOCRIT 41.2 % (35.4-49); HEMOGLOBIN 13.9 GM/dL (11.7-16.9); LYMPH % 34.1 % (8-40); MCH 28.2 pg (25.7-33.7); MCHC 33.7 g/dl (32.0-35.9); MEAN CELL VOLUME 83.6 fl (80-96); MONO % 8.7 % (3.8-10.2); NEUT % 55.1 % (42.8-82.8); PLATELET COUNT 194 10^3/uL (134-434); RBC 4.92 M/mm3 (4.00-5.60); RDW 17.7 % (11.9-15.9)
[2022-01-27 02:39] LABS: INR 1.04 (0.83-1.09)
[2022-01-27 02:42] LABS: ACTIVATED PTT 27.3 SECONDS (25.2-36.5)
[2022-01-27 02:46] LABS: CHLORIDE 104 mmol/L (98-107); SODIUM 139 mmol/L (136-145)
[2022-01-27 02:48] LABS: ANION GAP 8 MMOL/L (8-16); CO2 28 mmol/L (21-32); MAGNESIUM 2.5 mg/dL (1.8-2.4)
[2022-01-27 02:49] LABS: LIPASE 221 U/L (73-393)
[2022-01-27 02:50] LABS: ALBUMIN 3.9 g/dl (3.4-5.0); BLOOD UREA NITROGEN 8.8 mg/dL (7-18); GLUCOSE,RANDOM 135 mg/dL (74-106)
[2022-01-27 02:52] LABS: BILIRUBIN,DIRECT < 0.1 mg/dL (0.0-0.2); CREATININE 0.7 mg/dL (0.55-1.3); SGOT/AST 50 U/L (15-37); SGPT/ALT 49 U/L (13-61)
[2022-01-27 02:53] LABS: PHOSPHOROUS 3.3 mg/dL (2.5-4.9); TOT PROT 7.8 g/dl (6.4-8.2)
[2022-01-27 02:55] LABS: BILIRUBIN,TOTAL 0.3 mg/dL (0.2-1)
[2022-01-27 02:56] LABS: ALK PHOS 97 U/L (45-117)
[2022-01-27] MEDS ORDERED: FAMOTIDINE 10 MG/ML VIAL IVPB ONE ×2 (03:13→03:14)
[2022-01-27] MEDS ORDERED: FAMOTIDINE 20 MG TABLET PO ONE (03:34)
[2022-01-27] MEDS ORDERED: FAMOTIDINE 20 MG TABLET ONE (03:37)
[2022-01-27] MEDS ORDERED: MAG HYDROX/AL HYDROX/SIMETH 30 ML UNIT-DOSE CUP PO ONE (04:17)
[2022-01-27] MEDS ORDERED: MAG HYDROX/AL HYDROX/SIMETH 30 ML UNIT-DOSE CUP ONE ×2 (05:05→10:35)
[2022-01-27] MEDS ORDERED: morphine CARPU-JECT 4 MG/1 ML DISP.SYRIN IVPUSH ONE (06:01)
[2022-01-27] MEDS ORDERED: morphine SULFATE 4 MG/ML VIAL ONE (06:05)
[2022-01-27] MEDS ORDERED: chlordiazePOXIDE HCL 25 MG CAPSULE PO PRN (08:30)
[2022-01-27] MEDS ORDERED: METOCLOPRAMIDE HCL INJECTION 10 MG/2 ML VIAL IVPUSH PRN (08:52)
[2022-01-27] MEDS ORDERED: MAG HYDROX/AL HYDROX/SIMETH 30 ML UNIT-DOSE CUP PO PRN (08:52)
[2022-01-27] MEDS ORDERED: FAMOTIDINE 20 MG TABLET PO SCH (10:00)
[2022-01-27] MEDS ORDERED: PANTOPRAZOLE SODIUM 40 MG VIAL ONE (10:35)
[2022-01-27] MEDS ORDERED: ENOXAPARIN NA (PORCINE) 40 MG/0.4 ML DISP.SYRIN SQ ONE (10:35)
[2022-01-27] MEDS: ENOXAPARIN NA (PORCINE) 40 MG/0.4 ML DISP.SYRIN SQ SCH (10:48)
[2022-01-27] MEDS: PANTOPRAZOLE SODIUM 40 MG VIAL IVPUSH SCH (10:48)
[2022-01-27] MEDS ORDERED: METOCLOPRAMIDE HCL INJECTION 10 MG/2 ML VIAL ONE (11:31)
[2022-01-27] MEDS: INSULIN SLIDING SCALE (NOVOLOG) 1 VIAL SQ SCH ×2 (11:44→17:21)
[2022-01-27] MEDS ORDERED: THIAMINE HCL 200 MG/2 ML VIAL ONE (12:00)
[2022-01-27] MEDS: THIAMINE HCL 200 MG/2 ML VIAL IVPB SCH (12:08)
[2022-01-27] MEDS ORDERED: FOLIC ACID INJECTION - 1 MG, THIAMINE HCL 100 MG, MULTIVIT INJECTION ADULT 10 ML in SOD... IVPB ONE (12:15)
[2022-01-27 12:35] LABS: URINE APPEARANCE CLEAR; URINE BILIRUBIN NEGATIVE (NEGATIVE); URINE COLOR YELLOW; URINE GLUCOSE (UA) NEGATIVE (NEGATIVE); URINE KETONE NEGATIVE (NEGATIVE); URINE LEUK ESTERASE NEGATIVE (NEGATIVE); URINE NITRITE NEGATIVE (NEGATIVE); URINE PROTEIN TRACE (NEGATIVE); URINE UROBILINOGEN 0.2 mg/dL (0.2-1.0)
[2022-01-27 12:49] LABS: METHADONE, UR NEGATIVE (NEGATIVE); PHENCYCLIDINE,URINE NEGATIVE (NEGATIVE); URINE BENZODIAZEPINES NEGATIVE (NEGATIVE)
[2022-01-27 12:53] LABS: COCAINE, UR POSITIVE (NEGATIVE); OPIATES, URI POSITIVE (NEGATIVE); URINE AMPHETAMINES NEGATIVE (NEGATIVE); URINE BARBITURATES NEGATIVE (NEGATIVE)
[2022-01-27] MEDS ORDERED: LORazepam 2 MG/ML SDV VIAL IVPUSH PRN (14:22)
[2022-01-27] MEDS: LORazepam 2 MG/ML SDV VIAL IVPUSH SCH ×2 (14:38→20:35)
[2022-01-28] MEDS: MELATONIN 5 MG TABLETS PO PRN ×2 (00:14→21:57)
[2022-01-28] MEDS: SUCRALFATE 1 GM/10 ML UNIT DOSE CUPS PO SCH ×5 (00:14→21:57)
[2022-01-28] MEDS: INSULIN SLIDING SCALE (NOVOLOG) 1 VIAL SQ SCH ×5 (00:14→22:32)
[2022-01-28] MEDS: LORazepam 2 MG/ML SDV VIAL IVPUSH SCH ×4 (02:38→21:57)
[2022-01-28 04:19] VITALS: BMI 28.0
[2022-01-28 11:08] LABS: HEMATOCRIT 39.2 % (35.4-49); MCH 27.7 pg (25.7-33.7); MCHC 33.1 g/dl (32.0-35.9); MEAN CELL VOLUME 83.7 fl (80-96); MEAN PLT VOLUME 7.7 fl (7.5-11.1); PLATELET COUNT 161 10^3/uL (134-434); RBC 4.69 M/mm3 (4.00-5.60); RDW 17.1 % (11.9-15.9); WHITE BLOOD COUNT 4.3 K/mm3 (4.0-10.0)
[2022-01-28 11:32] LABS: ALBUMIN 3.6 g/dl (3.4-5.0); BLOOD UREA NITROGEN 8.2 mg/dL (7-18); CALCIUM 8.4 mg/dL (8.5-10.1); MAGNESIUM 2.3 mg/dL (1.8-2.4)
[2022-01-28 11:35] LABS: CREATININE 0.6 mg/dL (0.55-1.3)
[2022-01-28] MEDS: PANTOPRAZOLE SODIUM 40 MG VIAL IVPUSH SCH (11:35)
[2022-01-28] MEDS: ENOXAPARIN NA (PORCINE) 40 MG/0.4 ML DISP.SYRIN SQ SCH (11:36)
[2022-01-28] MEDS: FOLIC ACID 1 MG TABLET (FP) PO SCH (11:36)
[2022-01-28 11:37] LABS: BILIRUBIN,TOTAL 0.8 mg/dL (0.2-1)
[2022-01-28] MEDS: THIAMINE HCL 200 MG/2 ML VIAL IVPB SCH (11:42)
[2022-01-29] MEDS: LORazepam 2 MG/ML SDV VIAL IVPUSH SCH (02:46)
[2022-01-29] MEDS: INSULIN SLIDING SCALE (NOVOLOG) 1 VIAL SQ SCH ×2 (06:12→11:22)
[2022-01-29] MEDS ORDERED: HEPARIN NA (PORCINE) 5,000 UNITS/ML 1ML VIAL ONE (07:32)
[2022-01-29 07:40] LABS: BASO % 0.3 % (0-2.0); EOS % 2.6 % (0-4.5); HEMATOCRIT 36.7 % (35.4-49); HEMOGLOBIN 12.5 GM/dL (11.7-16.9); LYMPH % 36.9 % (8-40); MCH 28.6 pg (25.7-33.7); MCHC 34.2 g/dl (32.0-35.9); MEAN CELL VOLUME 83.7 fl (80-96); MEAN PLT VOLUME 7.7 fl (7.5-11.1); MONO % 9.3 % (3.8-10.2); NEUT % 50.9 % (42.8-82.8); PLATELET COUNT 143 10^3/uL (134-434); RBC 4.38 M/mm3 (4.00-5.60); RDW 16.8 % (11.9-15.9); WHITE BLOOD COUNT 4.3 K/mm3 (4.0-10.0)
[2022-01-29 07:46] LABS: BLOOD UREA NITROGEN 10.7 mg/dL (7-18); CALCIUM 8.5 mg/dL (8.5-10.1)
[2022-01-29 07:47] LABS: ALBUMIN 3.4 g/dl (3.4-5.0); MAGNESIUM 2.5 mg/dL (1.8-2.4)
[2022-01-29 07:48] LABS: PHOSPHOROUS 3.3 mg/dL (2.5-4.9)
[2022-01-29 07:49] LABS: CREATININE 0.7 mg/dL (0.55-1.3)
[2022-01-29 07:50] LABS: BILIRUBIN,TOTAL 0.6 mg/dL (0.2-1); TOT PROT 6.9 g/dl (6.4-8.2)
[2022-01-29] MEDS ORDERED: POTASSIUM CHLORIDE TABS 10 MEQ TABLET.ER (FP) PO ONE (10:36)
[2022-01-29] MEDS: PANTOPRAZOLE SODIUM 40 MG VIAL IVPUSH SCH (11:09)
[2022-01-29] MEDS: FOLIC ACID 1 MG TABLET (FP) PO SCH (11:09)
[2022-01-29] MEDS: SUCRALFATE 1 GM/10 ML UNIT DOSE CUPS PO SCH ×2 (11:09→14:14)
[2022-01-29] MEDS: THIAMINE HCL 200 MG/2 ML VIAL IVPB SCH (11:10)
[2022-01-29] MEDS: ENOXAPARIN NA (PORCINE) 40 MG/0.4 ML DISP.SYRIN SQ SCH (12:31)
[2022-01-29] MEDS ORDERED: LORazepam 2 MG/ML SDV VIAL IVPUSH SCH (14:30)
[2022-01-29 15:13] VITALS: BP 132/92; PULSE 72; TEMP 97.9
[2022-01-30] MEDS ORDERED: LORazepam 2 MG/ML SDV VIAL IVPUSH PRN (14:24)
[2022-01-30] MEDS ORDERED: LORazepam 2 MG/ML SDV VIAL IVPUSH SCH (14:30)
[2022-01-31] MEDS ORDERED: LORazepam 2 MG/ML SDV VIAL IVPUSH ONE (14:30)
== END 2022-01-29 15:15 | disposition home or self-care (01) ==
LOC: JER → UNDOADMOB 06:40 → INTOOBSV 06:40 → JERBED 06:40 → J5S 23:23
PROVIDERS: ADMIT Internal Medicine; ATTEND Internal Medicine
PROC: 3E023GC Introduction of Other Therapeutic Substance into Muscle, Percutaneous Approach (ICD-10-PCS; principal; 2022-01-27)
PROC: 3E033GC Introduction of Other Therapeutic Substance into Peripheral Vein, Percutaneous Approach (ICD-10-PCS; 2022-01-27)
PROC: 3E033NZ Introduction of Analgesics, Hypnotics, Sedatives into Peripheral Vein, Percutaneous Approach (ICD-10-PCS; 2022-01-27)
PROC: 3E0337Z Introduction of Electrolytic and Water Balance Substance into Peripheral Vein, Percutaneous Approach (ICD-10-PCS; 2022-01-27)
DX: F10.99 Alcohol use, unspecified with unspecified alcohol-induced disorder (principal); K29.20 Alcoholic gastritis without bleeding; K21.9 Gastro-esophageal reflux disease without esophagitis; E11.9 Type 2 diabetes mellitus without complications; I10 Essential (primary) hypertension; R56.9 Unspecified convulsions; E78.5 Hyperlipidemia, unspecified; Z29.8 Encounter for other specified prophylactic measures
CPT/HCPCS: 36415; 74177-TC; 80053; 80307; 81003; 82248; 82962; 83036; 83605; 83690; 83735; 84100; 84484; 85025; 85027; 85610; 85730; 86850; 86900; 86901; 93005; 93010; 96361; 96365; 96372; 96375; 96376; 99285-25; C9803-CS; G0378; J1644; U0003; U0005

== ENCOUNTER 2022-04-11 07:25 | Emergency (ER) | payer OTHER ==
[2022-04-11 07:46] VITALS: TEMP 98; BMI 30.1
[2022-04-11] MEDS ORDERED: FAMOTIDINE 20 MG/50 ML IVPB 20 MG/50 ML MG IVPB ONE ×2 (08:35→09:17)
[2022-04-11] MEDS ORDERED: MAG HYDROX/AL HYDROX/SIMETH 30 ML UNIT-DOSE CUP PO ONE (08:36)
[2022-04-11] MEDS ORDERED: ACETAMINOPHEN 1000 MG/100 ML BAG IVPB ONE (08:36)
[2022-04-11] MEDS ORDERED: SUCRALFATE 1 GM/10 ML UNIT DOSE CUPS PO ONE (08:36)
[2022-04-11] MEDS ORDERED: ONDANSETRON 4 MG/2 ML VIAL IVPUSH ONE (08:42)
[2022-04-11] MEDS ORDERED: chlordiazePOXIDE HCL 25 MG CAPSULE PO ONE (08:52)
[2022-04-11] MEDS ORDERED: SODIUM CHLORIDE 0.9% 500 ML INFUS.BAG IV ONE (08:53)
[2022-04-11 09:08] LABS: HEMATOCRIT 42.1 % (35.4-49); HEMOGLOBIN 14.1 GM/dL (11.7-16.9); MCH 28.5 pg (25.7-33.7); MCHC 33.6 g/dl (32.0-35.9); MEAN CELL VOLUME 84.9 fl (80-96); MEAN PLT VOLUME 7.3 fl (7.5-11.1); PLATELET COUNT 228 10^3/uL (134-434); RBC 4.96 M/mm3 (4.00-5.60); RDW 18.7 % (11.9-15.9); WHITE BLOOD COUNT 7.6 K/mm3 (4.0-10.0)
[2022-04-11] MEDS ORDERED: chlordiazePOXIDE HCL 25 MG CAPSULE ONE (09:16)
[2022-04-11] MEDS ORDERED: ACETAMINOPHEN INJECTION 100 ML IVPB ONE (09:17)
[2022-04-11] MEDS ORDERED: ONDANSETRON 4 MG/2 ML VIAL ONE (09:17)
[2022-04-11] MEDS ORDERED: MAG HYDROX/AL HYDROX/SIMETH 30 ML UNIT-DOSE CUP ONE (09:17)
[2022-04-11 09:32] LABS: ALBUMIN 3.5 g/dl (3.4-5.0); BLOOD UREA NITROGEN 11.2 mg/dL (7-18); CALCIUM 8.1 mg/dL (8.5-10.1)
[2022-04-11 09:35] LABS: CREATININE 0.8 mg/dL (0.55-1.3)
[2022-04-11 09:37] LABS: BILIRUBIN,TOTAL 0.5 mg/dL (0.2-1); TOT PROT 7.2 g/dl (6.4-8.2)
[2022-04-11 11:46] VITALS: BP 146/83; PULSE 72
== END 2022-04-11 12:40 | disposition home or self-care (01) ==
LOC: JER 07:25
PROC: 3E0333Z Introduction of Anti-inflammatory into Peripheral Vein, Percutaneous Approach (ICD-10-PCS; principal; 2022-04-11)
PROC: 3E033GC Introduction of Other Therapeutic Substance into Peripheral Vein, Percutaneous Approach (ICD-10-PCS; 2022-04-11)
PROC: 3E033GC Introduction of Other Therapeutic Substance into Peripheral Vein, Percutaneous Approach (ICD-10-PCS; 2022-04-11)
DX: K29.20 Alcoholic gastritis without bleeding (principal)
CPT/HCPCS: 36415; 71045-TC-FY; 80053; 83690; 84484; 85027; 93005; 93010; 99285-25

== ENCOUNTER 2022-06-25 19:31 | Emergency (ER) | payer OTHER ==
[2022-06-25 19:51] VITALS: BMI 28.3
[2022-06-25] MEDS ORDERED: MAG HYDROX/AL HYDROX/SIMETH 30 ML UNIT-DOSE CUP PO ONE (20:49)
[2022-06-25] MEDS ORDERED: ONDANSETRON 4 MG/2 ML VIAL IVPUSH ONE (20:49)
[2022-06-25] MEDS ORDERED: FAMOTIDINE 20 MG/50 ML IVPB 20 MG/50 ML MG IVPB ONE ×2 (20:49→21:18)
[2022-06-25] MEDS ORDERED: LACTATED RINGERS SOLUTION 1000 ML INFUS.BAG IV ONE (20:51)
[2022-06-25] MEDS ORDERED: ONDANSETRON 4 MG/2 ML VIAL ONE (21:18)
[2022-06-25] MEDS ORDERED: MAG HYDROX/AL HYDROX/SIMETH 30 ML UNIT-DOSE CUP ONE (21:18)
[2022-06-25 22:08] LABS: BASO % 0.5 % (0-2.0); EOS % 1.1 % (0-4.5); HEMATOCRIT 42.3 % (35.4-49); HEMOGLOBIN 14.9 GM/dL (11.7-16.9); LYMPH % 61.7 % (8-40); MCH 31.5 pg (25.7-33.7); MCHC 35.2 g/dl (32.0-35.9); MEAN CELL VOLUME 89.4 fl (80-96); MEAN PLT VOLUME 7.5 fl (7.5-11.1); MONO % 9.4 % (3.8-10.2); NEUT % 27.3 % (42.8-82.8); PLATELET COUNT 251 10^3/uL (134-434); RBC 4.73 M/mm3 (4.00-5.60); RDW 16.8 % (11.9-15.9); WHITE BLOOD COUNT 5.5 K/mm3 (4.0-10.0)
[2022-06-25 22:16] LABS: INR 0.99 (0.83-1.09); PROTHROMBIN TIME (PATIENT) 11.4 SEC (9.7-13.0)
[2022-06-25 22:30] LABS: CALCIUM 8.6 mg/dL (8.5-10.1)
[2022-06-25 22:31] LABS: ALBUMIN 3.8 g/dl (3.4-5.0); BLOOD UREA NITROGEN 8.4 mg/dL (7-18)
[2022-06-25 22:34] LABS: ANISOCYTOSIS 2+; BILIRUBIN,TOTAL 0.2 mg/dL (0.2-1); CREATININE 0.8 mg/dL (0.55-1.3); MACROCYTOSIS 0
[2022-06-25 22:36] LABS: TOT PROT 8.1 g/dl (6.4-8.2)
[2022-06-26 03:35] VITALS: BP 134/82; PULSE 86; RESP 20; TEMP 97.6
[2022-06-26] MEDS ORDERED: PANTOPRAZOLE SODIUM 40 MG VIAL IVPUSH ONE (06:03)
[2022-06-26] MEDS ORDERED: ACETAMINOPHEN 1000 MG/100 ML BAG IVPB ONE (06:03)
[2022-06-26] MEDS ORDERED: MAG HYDROX/AL HYDROX/SIMETH 30 ML UNIT-DOSE CUP PO ONE (06:05)
[2022-06-26] MEDS ORDERED: THIAMINE HCL 100 MG TABLET (FP) PO ONE (06:08)
[2022-06-26] MEDS ORDERED: SUCRALFATE 1 GM/10 ML UNIT DOSE CUPS PO ONE (06:09)
[2022-06-26] MEDS ORDERED: MAG HYDROX/AL HYDROX/SIMETH 30 ML UNIT-DOSE CUP ONE (06:23)
[2022-06-26] MEDS ORDERED: THIAMINE HCL 100 MG TABLET (FP) ONE (06:23)
[2022-06-26] MEDS ORDERED: ACETAMINOPHEN INJECTION 100 ML IVPB ONE (06:23)
[2022-06-26] MEDS ORDERED: SUCRALFATE 1 GM TABLET (FP) ONE (06:23)
[2022-06-26] MEDS ORDERED: PANTOPRAZOLE SODIUM 40 MG VIAL ONE (06:24)
== END 2022-06-26 07:02 | disposition home or self-care (01) ==
LOC: JER 19:31
PROC: 3E033GC Introduction of Other Therapeutic Substance into Peripheral Vein, Percutaneous Approach (ICD-10-PCS; principal; 2022-06-25)
DX: K29.20 Alcoholic gastritis without bleeding (principal); F10.10 Alcohol abuse, uncomplicated
CPT/HCPCS: 36415; 71045-TC-FY; 80053; 83690; 84484; 85025; 85610; 85730; 86850; 86900; 86901; 93005; 93010; 99285-25; C9803-CS; U0003; U0005

== ENCOUNTER 2022-08-03 13:06 | Inpatient (IN) | payer OTHER ==
[2022-08-03] MEDS ORDERED: MAG HYDROX/AL HYDROX/SIMETH 30 ML UNIT-DOSE CUP PO ONE (13:52)
[2022-08-03] MEDS ORDERED: ONDANSETRON 4 MG/2 ML VIAL IVPUSH ONE (13:52)
[2022-08-03] MEDS ORDERED: SODIUM CHLORIDE 0.9% 500 ML INFUS.BAG IV ONE (13:52)
[2022-08-03] MEDS ORDERED: FAMOTIDINE 20 MG/50 ML IVPB 20 MG/50 ML MG IVPB ONE ×2 (13:52→14:15)
[2022-08-03] MEDS ORDERED: LIDOCAINE VISCOUS 2% ORAL/TOP 15 ML UNIT-DOSE CUP MM ONE (13:52)
[2022-08-03] MEDS ORDERED: diazePAM CARPU-JECT 10 MG/2 ML DISP.SYRIN IVPUSH ONE ×2 (13:54→15:45)
[2022-08-03] MEDS ORDERED: chlordiazePOXIDE HCL 25 MG CAPSULE PO ONE (13:54)
[2022-08-03] MEDS ORDERED: ACETAMINOPHEN 1000 MG/100 ML BAG IVPB ONE (13:55)
[2022-08-03] MEDS ORDERED: chlordiazePOXIDE HCL 25 MG CAPSULE ONE (14:11)
[2022-08-03] MEDS ORDERED: LIDOCAINE VISCOUS 2% ORAL/TOP 15 ML UNIT-DOSE CUP ONE (14:11)
[2022-08-03] MEDS ORDERED: ONDANSETRON 4 MG/2 ML VIAL ONE (14:12)
[2022-08-03] MEDS ORDERED: MAG HYDROX/AL HYDROX/SIMETH 30 ML UNIT-DOSE CUP ONE (14:12)
[2022-08-03] MEDS ORDERED: diazePAM CARPU-JECT 10 MG/2 ML DISP.SYRIN ONE (14:14)
[2022-08-03] MEDS ORDERED: ACETAMINOPHEN INJECTION 100 ML IVPB ONE (14:15)
[2022-08-03 14:26] LABS: BASO % 0.4 % (0-2.0); EOS % 0.1 % (0-4.5); HEMATOCRIT 48.1 % (35.4-49); HEMOGLOBIN 16.7 GM/dL (11.7-16.9); LYMPH % 26.5 % (8-40); MCH 30.3 pg (25.7-33.7); MCHC 34.8 g/dl (32.0-35.9); MEAN CELL VOLUME 87.1 fl (80-96); MEAN PLT VOLUME 7.2 fl (7.5-11.1); MONO % 5.5 % (3.8-10.2); NEUT % 67.5 % (42.8-82.8); PLATELET COUNT 243 10^3/uL (134-434); RBC 5.52 M/mm3 (4.00-5.60); RDW 15.6 % (11.9-15.9); WHITE BLOOD COUNT 6.8 K/mm3 (4.0-10.0)
[2022-08-03 14:48] LABS: ALBUMIN 3.9 g/dl (3.4-5.0); CALCIUM 9.4 mg/dL (8.5-10.1)
[2022-08-03 14:49] LABS: BLOOD UREA NITROGEN 12.9 mg/dL (7-18)
[2022-08-03 14:52] LABS: CREATININE 0.9 mg/dL (0.55-1.3)
[2022-08-03 14:53] LABS: BILIRUBIN,TOTAL 0.5 mg/dL (0.2-1); TOT PROT 8.1 g/dl (6.4-8.2)
[2022-08-03 15:03] LABS: MAGNESIUM 2.1 mg/dL (1.8-2.4)
[2022-08-03 15:07] LABS: PHOSPHOROUS 2.5 mg/dL (2.5-4.9)
[2022-08-03] MEDS ORDERED: PANTOPRAZOLE SODIUM 40 MG VIAL IVPUSH ONE (15:46)
[2022-08-03] MEDS ORDERED: SUCRALFATE 1 GM/10 ML UNIT DOSE CUPS PO ONE (18:12)
[2022-08-03] MEDS ORDERED: LORazepam 2 MG/ML SDV VIAL IVPUSH ONE (19:18)
[2022-08-03] MEDS ORDERED: LORazepam 1 MG TABLET PO PRN (19:44)
[2022-08-03] MEDS ORDERED: FOLIC ACID INJECTION - 1 MG, THIAMINE HCL 100 MG, MULTIVIT INJECTION ADULT 10 ML in SOD... IVPB ONE (19:45)
[2022-08-03 19:46] LABS: EPI CELLS 6 /uL (0-25.1); HYALINE CASTS 1 /uL (0-3.1); PH,URINE 6.5 (5.0-8.0); URINE APPEARANCE CLEAR; URINE BACTERIA 8 /uL (0-1359); URINE BILIRUBIN NEGATIVE (NEGATIVE); URINE COLOR YELLOW; URINE GLUCOSE (UA) 2+ (NEGATIVE); URINE KETONE TRACE (NEGATIVE); URINE LEUK ESTERASE NEGATIVE (NEGATIVE); URINE NITRITE NEGATIVE (NEGATIVE); URINE PROTEIN 1+ (NEGATIVE); URINE RBC 6 /uL (0-23.9); URINE WBC 3 /uL (0-25.8)
[2022-08-03 20:23] LABS: METHADONE, UR NEGATIVE (NEGATIVE); PHENCYCLIDINE,URINE NEGATIVE (NEGATIVE); URINE BARBITURATES NEGATIVE (NEGATIVE)
[2022-08-03 20:24] LABS: OPIATES, URI NEGATIVE (NEGATIVE)
[2022-08-03] MEDS ORDERED: LORazepam 1 MG TABLET ONE ×2 (20:24→23:31)
[2022-08-03 20:27] LABS: COCAINE, UR POSITIVE (NEGATIVE); URINE AMPHETAMINES NEGATIVE (NEGATIVE); URINE BENZODIAZEPINES POSITIVE (NEGATIVE)
[2022-08-03] MEDS ORDERED: FOLIC ACID INJECTION - 1 MG, THIAMINE HCL 100 MG in SODIUM CHLORIDE 998.8 ML IVPB ONE (20:29)
[2022-08-03] MEDS ORDERED: MULTIVITAMINS (DAILY MVI) TABLET (FP) PO ONE (20:30)
[2022-08-03] MEDS: LORazepam 1 MG TABLET PO SCH ×2 (20:34→23:34)
[2022-08-03] MEDS ORDERED: MULTIVITAMINS (DAILY MVI) TABLET (FP) ONE (21:24)
[2022-08-03] MEDS ORDERED: LACTATED RINGERS SOLUTION 1,000 ML IV SCH (21:30)
[2022-08-04] MEDS ORDERED: KETOROLAC TROMETHAMINE 15 MG/ML VIAL ONE ×2 (02:02→18:02)
[2022-08-04] MEDS: KETOROLAC TROMETHAMINE 15 MG/ML VIAL IVPUSH PRN ×2 (02:09→18:01)
[2022-08-04 04:09] LABS: PH,URINE 7.5 (5.0-8.0); URINE APPEARANCE Clear; URINE BILIRUBIN Negative (NEGATIVE); URINE COLOR Yellow; URINE GLUCOSE (UA) 100 (NEGATIVE); URINE KETONE Negative (NEGATIVE); URINE LEUK ESTERASE Negative (NEGATIVE); URINE NITRITE Negative (NEGATIVE); URINE PROTEIN Trace (NEGATIVE); URINE UROBILINOGEN 0.2 mg/dL (0.2-1.0)
[2022-08-04] MEDS ORDERED: LORazepam 1 MG TABLET ONE ×4 (06:10→22:35)
[2022-08-04] MEDS: LORazepam 1 MG TABLET PO SCH ×4 (06:12→22:43)
[2022-08-04 06:30] LABS: HEMATOCRIT 40.6 % (35.4-49); HEMOGLOBIN 13.8 GM/dL (11.7-16.9); MCH 29.9 pg (25.7-33.7); MEAN PLT VOLUME 7.4 fl (7.5-11.1); PLATELET COUNT 139 10^3/uL (134-434); RBC 4.62 M/mm3 (4.00-5.60); RDW 15.6 % (11.9-15.9); WHITE BLOOD COUNT 6.6 K/mm3 (4.0-10.0)
[2022-08-04 06:52] LABS: CHLORIDE 101 mmol/L (98-107); SODIUM 138 mmol/L (136-145)
[2022-08-04 06:56] LABS: ALBUMIN 3.3 g/dl (3.4-5.0); ANION GAP 10 MMOL/L (8-16); BLOOD UREA NITROGEN 12.2 mg/dL (7-18); CALCIUM 8.1 mg/dL (8.5-10.1); CO2 27 mmol/L (21-32); GLUCOSE,RANDOM 110 mg/dL (74-106); MAGNESIUM 1.7 mg/dL (1.8-2.4)
[2022-08-04 06:57] LABS: CREATININE 0.8 mg/dL (0.55-1.3); PHOSPHOROUS 3.1 mg/dL (2.5-4.9); SGPT/ALT 70 U/L (13-61)
[2022-08-04 06:58] LABS: SGOT/AST 90 U/L (15-37)
[2022-08-04 06:59] LABS: BILIRUBIN,TOTAL 0.8 mg/dL (0.2-1); TOT PROT 6.5 g/dl (6.4-8.2)
[2022-08-04 07:00] LABS: ALK PHOS 95 U/L (45-117)
[2022-08-04] MEDS ORDERED: PANTOPRAZOLE 40 MG TABLET PO ONE (09:50)
[2022-08-04] MEDS ORDERED: THIAMINE HCL 100 MG TABLET (FP) ONE (09:50)
[2022-08-04] MEDS ORDERED: FOLIC ACID 1 MG TABLET (FP) ONE (09:51)
[2022-08-04] MEDS ORDERED: MULTIVITAMINS (DAILY MVI) TABLET (FP) ONE (09:51)
[2022-08-04] MEDS ORDERED: ENOXAPARIN NA (PORCINE) 40 MG/0.4 ML DISP.SYRIN SQ ONE (09:51)
[2022-08-04] MEDS ORDERED: MULTIVITAMINS (DAILY MVI) TABLET (FP) PO SCH (10:00)
[2022-08-04] MEDS ORDERED: THIAMINE HCL 100 MG TABLET (FP) PO SCH (10:00)
[2022-08-04] MEDS ORDERED: PANTOPRAZOLE 40 MG TABLET PO SCH (10:00)
[2022-08-04] MEDS ORDERED: ENOXAPARIN NA (PORCINE) 40 MG/0.4 ML DISP.SYRIN SQ SCH (10:00)
[2022-08-04] MEDS ORDERED: FOLIC ACID 1 MG TABLET (FP) PO SCH (10:00)
[2022-08-04] MEDS: INSULIN SLIDING SCALE (NOVOLOG) 1 VIAL SQ SCH ×3 (10:19→17:53)
[2022-08-04] MEDS ORDERED: ACETAMINOPHEN INJECTION 100 ML IVPB ONE ×2 (12:52→22:40)
[2022-08-04] MEDS: ACETAMINOPHEN 1000 MG/100 ML BAG IVPB PRN ×2 (13:12→22:44)
[2022-08-05] MEDS: KETOROLAC TROMETHAMINE 15 MG/ML VIAL IVPUSH PRN ×3 (01:05→20:46)
[2022-08-05] MEDS ORDERED: ACETAMINOPHEN 1000 MG/100 ML BAG IVPB PRN (01:11)
[2022-08-05] MEDS ORDERED: LORazepam 1 MG TABLET PO PRN (01:11)
[2022-08-05] MEDS ORDERED: LORazepam 1 MG TABLET PO SCH (05:00)
[2022-08-05] MEDS: INSULIN SLIDING SCALE (NOVOLOG) 1 VIAL SQ SCH ×3 (06:19→17:24)
[2022-08-05] MEDS: LORazepam 1 MG TABLET PO SCH ×4 (06:19→23:09)
[2022-08-05 07:39] VITALS: BMI 27.3
[2022-08-05 10:26] LABS: BASO % 0.2 % (0-2.0); EOS % 2.7 % (0-4.5); HEMATOCRIT 39.4 % (35.4-49); HEMOGLOBIN 13.2 GM/dL (11.7-16.9); LYMPH % 36.5 % (8-40); MCH 29.7 pg (25.7-33.7); MCHC 33.6 g/dl (32.0-35.9); MEAN CELL VOLUME 88.4 fl (80-96); MEAN PLT VOLUME 8.2 fl (7.5-11.1); MONO % 9.7 % (3.8-10.2); NEUT % 50.9 % (42.8-82.8); PLATELET COUNT 116 10^3/uL (134-434); RBC 4.45 M/mm3 (4.00-5.60); RDW 15.2 % (11.9-15.9); WHITE BLOOD COUNT 3.9 K/mm3 (4.0-10.0)
[2022-08-05] MEDS: PANTOPRAZOLE 40 MG TABLET PO SCH (10:35)
[2022-08-05] MEDS: ENOXAPARIN NA (PORCINE) 40 MG/0.4 ML DISP.SYRIN SQ SCH (10:35)
[2022-08-05] MEDS: THIAMINE HCL 100 MG TABLET (FP) PO SCH (10:35)
[2022-08-05] MEDS: MULTIVITAMINS (DAILY MVI) TABLET (FP) PO SCH (10:38)
[2022-08-05] MEDS: FOLIC ACID 1 MG TABLET (FP) PO SCH (10:38)
[2022-08-05 10:54] LABS: CALCIUM 8.4 mg/dL (8.5-10.1)
[2022-08-05 10:55] LABS: ALBUMIN 3.1 g/dl (3.4-5.0); BLOOD UREA NITROGEN 6.3 mg/dL (7-18)
[2022-08-05 10:58] LABS: CREATININE 0.9 mg/dL (0.55-1.3)
[2022-08-05 11:00] LABS: BILIRUBIN,TOTAL 0.7 mg/dL (0.2-1); TOT PROT 6.4 g/dl (6.4-8.2)
[2022-08-05] MEDS: LACTATED RINGERS SOLUTION 1,000 ML/1,000 ML INFUS.BAG IV SCH ×2 (11:09→23:25)
[2022-08-05] MEDS: KCL 10 MEQ IVPB 10 MEQ/100 ML INFUS.BAG IVPB SCH ×3 (12:18→15:47)
[2022-08-05] MEDS ORDERED: POTASSIUM CHLORIDE TABS 20 MEQ TABLET.ER (FP) PO ONE (16:59)
[2022-08-05 18:23] VITALS: RESP 18
[2022-08-06] MEDS ORDERED: LORazepam 0.5 MG TABLET PO PRN ×2
[2022-08-06] MEDS ORDERED: LORazepam 0.5 MG TABLET PO SCH (05:00)
[2022-08-06] MEDS: LORazepam 0.5 MG TABLET PO SCH ×4 (06:18→22:52)
[2022-08-06] MEDS: KETOROLAC TROMETHAMINE 15 MG/ML VIAL IVPUSH PRN ×3 (06:19→22:52)
[2022-08-06] MEDS: LACTATED RINGERS SOLUTION 1,000 ML/1,000 ML INFUS.BAG IV SCH ×3 (06:19→23:52)
[2022-08-06] MEDS: INSULIN SLIDING SCALE (NOVOLOG) 1 VIAL SQ SCH ×3 (06:19→17:40)
[2022-08-06] MEDS: FOLIC ACID 1 MG TABLET (FP) PO SCH (09:27)
[2022-08-06] MEDS: PANTOPRAZOLE 40 MG TABLET PO SCH (09:27)
[2022-08-06] MEDS: MULTIVITAMINS (DAILY MVI) TABLET (FP) PO SCH (09:27)
[2022-08-06] MEDS: THIAMINE HCL 100 MG TABLET (FP) PO SCH (09:27)
[2022-08-06] MEDS: ENOXAPARIN NA (PORCINE) 40 MG/0.4 ML DISP.SYRIN SQ SCH (09:28)
[2022-08-06 11:31] LABS: BASO % 0.3 % (0-2.0); EOS % 2.7 % (0-4.5); HEMATOCRIT 38.7 % (35.4-49); MCHC 33.6 g/dl (32.0-35.9); MEAN CELL VOLUME 89.1 fl (80-96); MEAN PLT VOLUME 8.4 fl (7.5-11.1); MONO % 9.1 % (3.8-10.2); NEUT % 51.9 % (42.8-82.8); PLATELET COUNT 114 10^3/uL (134-434); RBC 4.34 M/mm3 (4.00-5.60); WHITE BLOOD COUNT 4.7 K/mm3 (4.0-10.0)
[2022-08-06 11:57] LABS: ALBUMIN 3.1 g/dl (3.4-5.0); BLOOD UREA NITROGEN 5.6 mg/dL (7-18); CALCIUM 8.6 mg/dL (8.5-10.1)
[2022-08-06 11:59] LABS: CREATININE 0.7 mg/dL (0.55-1.3)
[2022-08-06 12:00] LABS: MAGNESIUM 2.1 mg/dL (1.8-2.4)
[2022-08-06 12:01] LABS: BILIRUBIN,TOTAL 0.5 mg/dL (0.2-1); TOT PROT 6.4 g/dl (6.4-8.2)
[2022-08-07] MEDS ORDERED: LORazepam 0.5 MG TABLET PO ONE ×2 (05:00)
[2022-08-07] MEDS: KETOROLAC TROMETHAMINE 15 MG/ML VIAL IVPUSH PRN ×2 (05:55→12:16)
[2022-08-07 07:01] VITALS: BP 108/77; PULSE 70; TEMP 97.9
[2022-08-07] MEDS: INSULIN SLIDING SCALE (NOVOLOG) 1 VIAL SQ SCH ×2 (08:29→11:29)
[2022-08-07 08:38] LABS: BASO % 0.3 % (0-2.0); EOS % 2.3 % (0-4.5); LYMPH % 41.8 % (8-40); MCH 30.2 pg (25.7-33.7); MCHC 34.1 g/dl (32.0-35.9); MEAN CELL VOLUME 88.5 fl (80-96); MONO % 10.3 % (3.8-10.2); NEUT % 45.3 % (42.8-82.8); PLATELET COUNT 121 10^3/uL (134-434); RDW 14.8 % (11.9-15.9); WHITE BLOOD COUNT 5.3 K/mm3 (4.0-10.0)
[2022-08-07 09:21] LABS: ALBUMIN 3.2 g/dl (3.4-5.0); CALCIUM 8.5 mg/dL (8.5-10.1)
[2022-08-07 09:24] LABS: CREATININE 0.7 mg/dL (0.55-1.3)
[2022-08-07 09:26] LABS: BILIRUBIN,TOTAL 0.4 mg/dL (0.2-1); TOT PROT 6.6 g/dl (6.4-8.2)
[2022-08-07] MEDS: PANTOPRAZOLE 40 MG TABLET PO SCH (10:30)
[2022-08-07] MEDS: MULTIVITAMINS (DAILY MVI) TABLET (FP) PO SCH (10:30)
[2022-08-07] MEDS: FOLIC ACID 1 MG TABLET (FP) PO SCH (10:30)
[2022-08-07] MEDS: THIAMINE HCL 100 MG TABLET (FP) PO SCH (10:30)
[2022-08-07] MEDS: ENOXAPARIN NA (PORCINE) 40 MG/0.4 ML DISP.SYRIN SQ SCH (10:30)
[2022-08-07] MEDS: LACTATED RINGERS SOLUTION 1,000 ML/1,000 ML INFUS.BAG IV SCH (10:34)
== END 2022-08-07 12:54 | disposition home or self-care (01) | DRG 282 ==
LOC: JER 13:06 → JERBED 19:18 → J5S 08-04 23:46
PROVIDERS: ADMIT Internal Medicine; ATTEND Nurse Practitioner Family
PROC: HZ2ZZZZ Detoxification Services for Substance Abuse Treatment (ICD-10-PCS; principal; 2022-08-03)
DX: K85.20 Alcohol induced acute pancreatitis without necrosis or infection (principal); I10 Essential (primary) hypertension; E78.5 Hyperlipidemia, unspecified; K76.0 Fatty (change of) liver, not elsewhere classified; F10.239 Alcohol dependence with withdrawal, unspecified; E11.9 Type 2 diabetes mellitus without complications; K21.9 Gastro-esophageal reflux disease without esophagitis; R94.5 Abnormal results of liver function studies; R63.0 Anorexia; Z68.27 Body mass index [BMI] 27.0-27.9, adult
CPT/HCPCS: 0241U-QW; 36415; 70450-TC; 71046-TC-FY; 71260-TC; 74177-TC; 80053; 80307; 81003; 82728; 82962; 83036; 83540; 83550; 83690; 83735; 84100; 84484; 85025; 85027; 86140; 86705; 87086; 87338; 87517; 87522; 93005; 93010; 99285-25; Q9967

== ENCOUNTER 2022-09-21 08:55 | Emergency (ER) | payer OTHER ==
[2022-09-21] MEDS ORDERED: SODIUM CHLORIDE 0.9% 500 ML INFUS.BAG IV ONE (09:59)
[2022-09-21] MEDS ORDERED: FAMOTIDINE 20 MG TABLET PO ONE (10:00)
[2022-09-21] MEDS ORDERED: ONDANSETRON 4 MG/2 ML VIAL IVPUSH ONE (10:07)
[2022-09-21] MEDS ORDERED: FAMOTIDINE 20 MG/50 ML IVPB 20 MG/50 ML MG IVPB ONE ×2 (10:08→10:20)
[2022-09-21 10:09] VITALS: BMI 26.6
[2022-09-21] MEDS ORDERED: ACETAMINOPHEN INJECTION 100 ML IVPB ONE (10:20)
[2022-09-21] MEDS ORDERED: ONDANSETRON 4 MG/2 ML VIAL ONE (10:20)
[2022-09-21] MEDS: ACETAMINOPHEN 1000 MG/100 ML BAG IVPB ONE ×2 (10:57→11:00)
[2022-09-21] MEDS: ONDANSETRON 4 MG TABLET PO ONE ×2 (10:59→11:00)
[2022-09-21 11:20] LABS: HEMATOCRIT 46.9 % (35.4-49); HEMOGLOBIN 15.8 GM/dL (11.7-16.9); MCH 29.3 pg (25.7-33.7); MCHC 33.6 g/dl (32.0-35.9); MEAN CELL VOLUME 87.1 fl (80-96); MEAN PLT VOLUME 7.7 fl (7.5-11.1); PLATELET COUNT 257 10^3/uL (134-434); RBC 5.38 M/mm3 (4.00-5.60); WHITE BLOOD COUNT 6.5 K/mm3 (4.0-10.0)
[2022-09-21 11:47] LABS: ALBUMIN 3.6 g/dl (3.4-5.0); CALCIUM 8.8 mg/dL (8.5-10.1)
[2022-09-21 11:48] LABS: BLOOD UREA NITROGEN 11.9 mg/dL (7-18); MAGNESIUM 2.2 mg/dL (1.8-2.4)
[2022-09-21 11:50] LABS: CREATININE 0.9 mg/dL (0.55-1.3)
[2022-09-21 11:51] LABS: PHOSPHOROUS 2.4 mg/dL (2.5-4.9)
[2022-09-21 11:52] LABS: BILIRUBIN,TOTAL 0.5 mg/dL (0.2-1); TOT PROT 7.8 g/dl (6.4-8.2)
[2022-09-21] MEDS ORDERED: ONDANSETRON 4 MG TABLET PO ONE (12:43)
[2022-09-21] MEDS ORDERED: ONDANSETRON *ODT* 4 MG TABLET ONE (14:09)
[2022-09-21 14:56] LABS: EPI CELLS 4 /uL (0-25.1); HYALINE CASTS 0 /uL (0-3.1); PH,URINE 7.5 (5.0-8.0); URINE APPEARANCE CLEAR; URINE BACTERIA 154 /uL (0-1359); URINE BILIRUBIN NEGATIVE (NEGATIVE); URINE COLOR YELLOW; URINE GLUCOSE (UA) 3+ (NEGATIVE); URINE KETONE TRACE (NEGATIVE); URINE LEUK ESTERASE NEGATIVE (NEGATIVE); URINE NITRITE NEGATIVE (NEGATIVE); URINE PROTEIN 1+ (NEGATIVE); URINE RBC 119 /uL (0-23.9); URINE WBC 67 /uL (0-25.8)
[2022-09-21] MEDS ORDERED: LIDOCAINE VISCOUS 2% ORAL/TOP 15 ML UNIT-DOSE CUP MM ONE (15:49)
[2022-09-21] MEDS ORDERED: MAG HYDROX/AL HYDROX/SIMETH -MYLANTA- ORAL SUSPENSION PO ONE (15:50)
[2022-09-21] MEDS ORDERED: chlordiazePOXIDE HCL 25 MG CAPSULE PO ONE (16:17)
[2022-09-21] MEDS ORDERED: MAG HYDROX/AL HYDROX/SIMETH 30 ML UNIT-DOSE CUP ONE (16:57)
[2022-09-21] MEDS ORDERED: chlordiazePOXIDE HCL 25 MG CAPSULE ONE (16:57)
[2022-09-21] MEDS ORDERED: LIDOCAINE VISCOUS 2% ORAL/TOP 15 ML UNIT-DOSE CUP ONE (16:57)
[2022-09-21 17:35] VITALS: BP 149/89; PULSE 75; TEMP 98.2
[2022-09-21 17:39] VITALS: RESP 17
[2022-09-21] MEDS ORDERED: LORazepam 2 MG/ML SDV VIAL IVPUSH ONE (18:01)
== END 2022-09-21 23:34 | disposition home or self-care (01) ==
LOC: JER 08:55
PROC: 3E033GC Introduction of Other Therapeutic Substance into Peripheral Vein, Percutaneous Approach (ICD-10-PCS; principal; 2022-09-21)
DX: R10.84 Generalized abdominal pain (principal); F10.239 Alcohol dependence with withdrawal, unspecified
CPT/HCPCS: 0241U-QW; 36415; 71046-TC-FY; 74177-TC; 80053; 81003; 82962; 83690; 83735; 84100; 84484; 85027; 87086; 93005; 93010; 99285-25; Q9967

== ENCOUNTER 2022-09-22 00:51 | Inpatient (IN) | payer OTHER ==
[2022-09-22 01:21] VITALS: BMI 26.7
[2022-09-22] MEDS ORDERED: ACETAMINOPHEN 325 MG TABLET (FP) PO PRN ×2 (02:04)
[2022-09-22] MEDS ORDERED: BISMUTH SUBSALICYLATE 524 MG/30 ML PO PRN (02:04)
[2022-09-22] MEDS ORDERED: NALOXONE HCL (KLOXXADO) 8 MG SPRAY NS PRN (02:04)
[2022-09-22] MEDS ORDERED: BENZOCAINE/MENTHOL (CHLORASEPTIC ) LOZENGE MM PRN (02:04)
[2022-09-22] MEDS ORDERED: ONDANSETRON *ODT* 4 MG TABLET SL PRN (02:04)
[2022-09-22] MEDS ORDERED: METHOCARBAMOL 500 MG TABLET PO PRN (02:04)
[2022-09-22] MEDS ORDERED: POLYETHYLENE GLYCOL (HEALTHYLAX) 3350 17 GM PACKET PO PRN (02:04)
[2022-09-22] MEDS ORDERED: IBUPROFEN 600 MG TABLET (FP) PO PRN (02:04)
[2022-09-22] MEDS ORDERED: MAGNESIUM HYDROX 2400MG/30ML ORAL SUSPENSION 30 ML CUP PO PRN (02:04)
[2022-09-22] MEDS ORDERED: LOPERAMIDE HCL 2 MG CAPSULE PO PRN (02:04)
[2022-09-22] MEDS ORDERED: IBUPROFEN 400 MG TABLET (FP) PO PRN (02:04)
[2022-09-22] MEDS ORDERED: chlordiazePOXIDE HCL 25 MG CAPSULE PO PRN (02:09)
[2022-09-22] MEDS: chlordiazePOXIDE HCL 25 MG CAPSULE PO SCH ×4 (05:32→22:08)
[2022-09-22] MEDS ORDERED: INSULIN SLIDING SCALE (NOVOLOG) 1 VIAL SQ SCH (07:00)
[2022-09-22] MEDS: INSULIN SLIDING SCALE (NOVOLOG) 1 VIAL SQ SCH ×2 (07:25→16:52)
[2022-09-22] MEDS: metFORMIN HCL 500 MG TABLET (FP) PO SCH ×2 (10:08→16:52)
[2022-09-22] MEDS: PRENATAL VITAMINS W/ FOLIC ACID TABLET (FP) PO SCH (10:08)
[2022-09-22 11:14] LABS: HEMATOCRIT 44.4 % (35.4-49); HEMOGLOBIN 14.9 GM/dL (11.7-16.9); MCH 29.8 pg (25.7-33.7); MCHC 33.6 g/dl (32.0-35.9); MEAN CELL VOLUME 88.6 fl (80-96); MEAN PLT VOLUME 8.1 fl (7.5-11.1); PLATELET COUNT 192 10^3/uL (134-434); RBC 5.01 M/mm3 (4.00-5.60); RDW 16.2 % (11.9-15.9); WHITE BLOOD COUNT 6.5 K/mm3 (4.0-10.0)
[2022-09-22] MEDS: DICYCLOMINE HCL 10 MG CAPSULE PO PRN (11:55)
[2022-09-22] MEDS ORDERED: PNEUMOC 20-VAL CONJ-DIP CRM/PF 0.5 ML SYRINGE IM ONE (12:00)
[2022-09-22 12:06] LABS: CALCIUM 8.7 mg/dL (8.5-10.1)
[2022-09-22 12:07] LABS: ALBUMIN 3.4 g/dl (3.4-5.0)
[2022-09-22 12:11] LABS: BILIRUBIN,TOTAL 1.1 mg/dL (0.2-1); TOT PROT 7.2 g/dl (6.4-8.2)
[2022-09-22] MEDS ORDERED: INSULIN (NOVOLOG) ASPART 100 UNITS/ML 10ML VIAL ONE (16:47)
[2022-09-22] MEDS: MAG HYDROX/AL HYDROX/SIMETH 30 ML UNIT-DOSE CUP PO PRN (16:55)
[2022-09-22] MEDS: MELATONIN 5 MG TABLETS PO SCH (22:08)
[2022-09-22] MEDS: THIAMINE HCL 100 MG TABLET (FP) PO SCH (22:08)
[2022-09-23] MEDS ORDERED: chlordiazePOXIDE HCL 25 MG CAPSULE PO SCH (05:00)
[2022-09-23] MEDS: metFORMIN HCL 500 MG TABLET (FP) PO SCH ×2 (06:42→16:46)
[2022-09-23] MEDS: INSULIN SLIDING SCALE (NOVOLOG) 1 VIAL SQ SCH ×2 (06:43→16:47)
[2022-09-23] MEDS ORDERED: LORazepam 1 MG TABLET PO SCH (09:57)
[2022-09-23] MEDS: PRENATAL VITAMINS W/ FOLIC ACID TABLET (FP) PO SCH (10:11)
[2022-09-23] MEDS: DICYCLOMINE HCL 10 MG CAPSULE PO PRN (10:13)
[2022-09-23] MEDS: LORazepam 1 MG TABLET PO SCH ×3 (10:18→22:07)
[2022-09-23 11:43] LABS: HEMATOCRIT 42.7 % (35.4-49); HEMOGLOBIN 14.3 GM/dL (11.7-16.9); MCH 29.9 pg (25.7-33.7); MCHC 33.6 g/dl (32.0-35.9); MEAN CELL VOLUME 89.1 fl (80-96); MEAN PLT VOLUME 8.2 fl (7.5-11.1); PLATELET COUNT 167 10^3/uL (134-434); RBC 4.79 M/mm3 (4.00-5.60); WHITE BLOOD COUNT 6.5 K/mm3 (4.0-10.0)
[2022-09-23 11:59] LABS: ALBUMIN 3.2 g/dl (3.4-5.0); BLOOD UREA NITROGEN 11.8 mg/dL (7-18)
[2022-09-23 12:03] LABS: CREATININE 0.9 mg/dL (0.55-1.3)
[2022-09-23 12:04] LABS: BILIRUBIN,TOTAL 0.8 mg/dL (0.2-1)
[2022-09-23] MEDS ORDERED: INSULIN (NOVOLOG) ASPART 100 UNITS/ML 10ML VIAL ONE (16:44)
[2022-09-23] MEDS: THIAMINE HCL 100 MG TABLET (FP) PO SCH (22:05)
[2022-09-23] MEDS: MELATONIN 5 MG TABLETS PO SCH (22:05)
[2022-09-24] MEDS ORDERED: chlordiazePOXIDE HCL 10 MG CAPSULE PO PRN
[2022-09-24] MEDS ORDERED: chlordiazePOXIDE HCL 10 MG CAPSULE PO SCH (05:00)
[2022-09-24] MEDS: LORazepam 0.5 MG TABLET PO SCH ×4 (05:34→22:10)
[2022-09-24] MEDS ORDERED: INSULIN (NOVOLOG) ASPART 100 UNITS/ML 10ML VIAL ONE (07:59)
[2022-09-24] MEDS: INSULIN SLIDING SCALE (NOVOLOG) 1 VIAL SQ SCH ×3 (08:05→17:30)
[2022-09-24] MEDS: metFORMIN HCL 500 MG TABLET (FP) PO SCH ×2 (08:05→17:30)
[2022-09-24] MEDS: PRENATAL VITAMINS W/ FOLIC ACID TABLET (FP) PO SCH (10:14)
[2022-09-24 21:30] VITALS: RESP 18
[2022-09-24] MEDS: MELATONIN 5 MG TABLETS PO SCH (22:10)
[2022-09-24] MEDS: THIAMINE HCL 100 MG TABLET (FP) PO SCH (22:10)
[2022-09-24] MEDS: MAG HYDROX/AL HYDROX/SIMETH 30 ML UNIT-DOSE CUP PO PRN (22:12)
[2022-09-25] MEDS ORDERED: LORazepam 1 MG TABLET PO SCH (05:00)
[2022-09-25] MEDS ORDERED: chlordiazePOXIDE HCL 10 MG CAPSULE PO SCH (05:00)
[2022-09-25] MEDS ORDERED: LORazepam 0.5 MG TABLET PO ONE (05:00)
[2022-09-25] MEDS: metFORMIN HCL 500 MG TABLET (FP) PO SCH (06:25)
[2022-09-25] MEDS: INSULIN SLIDING SCALE (NOVOLOG) 1 VIAL SQ SCH (06:43)
[2022-09-25 09:36] VITALS: BP 135/93; PULSE 73; TEMP 97.1
[2022-09-26] MEDS ORDERED: LORazepam 0.5 MG TABLET PO SCH (05:00)
[2022-09-26] MEDS ORDERED: chlordiazePOXIDE HCL 10 MG CAPSULE PO ONE (05:00)
[2022-09-27] MEDS ORDERED: LORazepam 0.5 MG TABLET PO ONE (05:00)
== END 2022-09-25 09:13 | disposition home or self-care (01) | DRG 775 ==
LOC: YASAS 00:51 → Y6N 02:24
PROVIDERS: ADMIT Allergy & Immunology; ATTEND Allergy & Immunology
PROC: HZ2ZZZZ Detoxification Services for Substance Abuse Treatment (ICD-10-PCS; principal; 2022-09-22)
DX: F10.230 Alcohol dependence with withdrawal, uncomplicated (principal); F17.210 Nicotine dependence, cigarettes, uncomplicated; I10 Essential (primary) hypertension; E11.9 Type 2 diabetes mellitus without complications; E78.5 Hyperlipidemia, unspecified; K76.0 Fatty (change of) liver, not elsewhere classified; K21.9 Gastro-esophageal reflux disease without esophagitis; Z86.69 Personal history of other diseases of the nervous system and sense organs; Z28.310 Unvaccinated for COVID-19; Z79.4 Long term (current) use of insulin; Z79.84 Long term (current) use of oral hypoglycemic drugs
CPT/HCPCS: 36415; 80053; 82962; 85027; 86780; 87811; C9803-CS; U0003; U0005

== ENCOUNTER 2022-11-03 04:54 | Inpatient (IN) | payer OTHER ==
[2022-11-03 05:05] VITALS: BMI 27.4
[2022-11-03] MEDS ORDERED: ONDANSETRON 4 MG/2 ML VIAL IVPUSH ONE (07:49)
[2022-11-03] MEDS ORDERED: morphine CARPU-JECT 4 MG/1 ML DISP.SYRIN IVPUSH ONE (07:49)
[2022-11-03] MEDS ORDERED: LACTATED RINGERS SOLUTION 1000 ML INFUS.BAG IV ONE (07:50)
[2022-11-03] MEDS ORDERED: diazePAM CARPU-JECT 10 MG/2 ML DISP.SYRIN IVPUSH ONE ×3 (07:51→13:15)
[2022-11-03] MEDS ORDERED: diazePAM CARPU-JECT 10 MG/2 ML DISP.SYRIN ONE ×3 (08:04→14:09)
[2022-11-03] MEDS ORDERED: ONDANSETRON 4 MG/2 ML VIAL ONE (08:04)
[2022-11-03] MEDS ORDERED: morphine SULFATE 4 MG/ML VIAL ONE (08:04)
[2022-11-03 08:12] LABS: BASO % 0.3 % (0-2.0); EOS % 0.3 % (0-4.5); HEMATOCRIT 44.1 % (35.4-49); MEAN CELL VOLUME 88.2 fl (80-96); MEAN PLT VOLUME 7.2 fl (7.5-11.1); MONO % 7.9 % (3.8-10.2); NEUT % 47.5 % (42.8-82.8); PLATELET COUNT 169 10^3/uL (134-434); RBC 4.99 M/mm3 (4.00-5.60); RDW 17.1 % (11.9-15.9); WHITE BLOOD COUNT 5.6 K/mm3 (4.0-10.0)
[2022-11-03 08:24] LABS: VENOUS BASE EXCESS -1.3 mmol/L (-2-2); VENOUS O2 SATURATION 98.2 % (70-80); VENOUS PCO2 21.9 mmHg (38-52); VENOUS PH 7.559 (7.310-7.410)
[2022-11-03 08:26] LABS: INR 1.02 (0.83-1.09); PROTHROMBIN TIME (PATIENT) 11.7 SEC (9.7-13.0)
[2022-11-03 08:29] LABS: ACTIVATED PTT 30.3 SECONDS (25.2-36.5)
[2022-11-03] MEDS ORDERED: FAMOTIDINE 20 MG/50 ML IVPB 20 MG/50 ML MG IVPB ONE ×2 (08:29→09:16)
[2022-11-03 08:35] LABS: CALCIUM 8.9 mg/dL (8.5-10.1)
[2022-11-03 08:36] LABS: ALBUMIN 4.2 g/dl (3.4-5.0); BLOOD UREA NITROGEN 8.1 mg/dL (7-18)
[2022-11-03 08:38] LABS: CREATININE 0.8 mg/dL (0.55-1.3)
[2022-11-03 08:40] LABS: BILIRUBIN,TOTAL 0.5 mg/dL (0.2-1); TOT PROT 8.3 g/dl (6.4-8.2)
[2022-11-03 08:56] LABS: LACTIC ACID 3.5 mmol/L (0.4-2.0)
[2022-11-03] MEDS ORDERED: MAG HYDROX/AL HYDROX/SIMETH 30 ML UNIT-DOSE CUP PO ONE (09:16)
[2022-11-03] MEDS ORDERED: THIAMINE HCL 200 MG/2 ML VIAL IVPB ONE (09:20)
[2022-11-03] MEDS: SUCRALFATE 1 GM/10 ML UNIT DOSE CUPS PO SCH ×2 (09:22→21:29)
[2022-11-03] MEDS ORDERED: THIAMINE HCL 200 MG/2 ML VIAL ONE (09:25)
[2022-11-03] MEDS ORDERED: SUCRALFATE 1 GM TABLET (FP) ONE (09:26)
[2022-11-03] MEDS ORDERED: MAG HYDROX/AL HYDROX/SIMETH 30 ML UNIT-DOSE CUP ONE (09:26)
[2022-11-03] MEDS ORDERED: FAMOTIDINE 10 MG/ML VIAL IVPB ONE (09:27)
[2022-11-03 11:00] LABS: VENOUS BASE EXCESS 3.3 mmol/L (-2-2); VENOUS O2 SATURATION 95.1 % (70-80); VENOUS PCO2 40.7 mmHg (38-52); VENOUS PH 7.448 (7.310-7.410)
[2022-11-03 11:04] LABS: EPI CELLS 1 /uL (0-25.1); HYALINE CASTS 0 /uL (0-3.1); PH,URINE 7.5 (5.0-8.0); URINE APPEARANCE CLEAR; URINE BACTERIA 2 /uL (0-1359); URINE BILIRUBIN NEGATIVE (NEGATIVE); URINE COLOR YELLOW; URINE GLUCOSE (UA) NEGATIVE (NEGATIVE); URINE KETONE TRACE (NEGATIVE); URINE LEUK ESTERASE NEGATIVE (NEGATIVE); URINE NITRITE NEGATIVE (NEGATIVE); URINE PROTEIN 1+ (NEGATIVE); URINE RBC 9 /uL (0-23.9); URINE UROBILINOGEN 0.2 mg/dL (0.2-1.0); URINE WBC 2 /uL (0-25.8)
[2022-11-03 11:26] LABS: MAGNESIUM 1.8 mg/dL (1.8-2.4)
[2022-11-03 11:30] LABS: PHOSPHOROUS 2.6 mg/dL (2.5-4.9)
[2022-11-03 11:53] LABS: ALBUMIN 3.5 g/dl (3.4-5.0); BLOOD UREA NITROGEN 6.7 mg/dL (7-18); CALCIUM 8.2 mg/dL (8.5-10.1)
[2022-11-03 11:56] LABS: CREATININE 0.7 mg/dL (0.55-1.3)
[2022-11-03 11:58] LABS: BILIRUBIN,TOTAL 0.8 mg/dL (0.2-1)
[2022-11-03 11:59] LABS: TOT PROT 6.9 g/dl (6.4-8.2)
[2022-11-03 12:28] LABS: LACTIC ACID 4.8 mmol/L (0.4-2.0)
[2022-11-03] MEDS ORDERED: ONDANSETRON 4 MG/2 ML VIAL IVPUSH PRN (15:01)
[2022-11-03] MEDS ORDERED: chlordiazePOXIDE HCL 25 MG CAPSULE PO PRN (15:02)
[2022-11-03] MEDS ORDERED: SODIUM CHLORIDE 1,000 ML IV STA (15:08)
[2022-11-03] MEDS ORDERED: SODIUM CHLORIDE 1,000 ML IV SCH (15:15)
[2022-11-03] MEDS ORDERED: PANTOPRAZOLE SODIUM 40 MG VIAL IVPUSH ONE (15:30)
[2022-11-03] MEDS ORDERED: FOLIC ACID INJECTION - 1 MG, THIAMINE HCL 100 MG, MULTIVIT INJECTION ADULT 10 ML in SOD... IVPB ONE (15:30)
[2022-11-03] MEDS: chlordiazePOXIDE HCL 25 MG CAPSULE PO SCH ×2 (16:49→22:14)
[2022-11-03 17:24] LABS: CALCIUM 8.2 mg/dL (8.5-10.1)
[2022-11-03 17:25] LABS: BLOOD UREA NITROGEN 7.8 mg/dL (7-18)
[2022-11-03 17:28] LABS: CREATININE 0.7 mg/dL (0.55-1.3)
[2022-11-03] MEDS ORDERED: SENNOSIDES 8.6MG TABLET (FP) PO SCH (22:00)
[2022-11-04] MEDS: chlordiazePOXIDE HCL 25 MG CAPSULE PO SCH ×2 (04:34→11:12)
[2022-11-04] MEDS ORDERED: MAGNESIUM SULF 50% (8.12 MEQ/2 ML-1 GM VIAL) IVPB ONE (08:01)
[2022-11-04] MEDS: SUCRALFATE 1 GM/10 ML UNIT DOSE CUPS PO SCH (09:07)
[2022-11-04] MEDS ORDERED: ACETAMINOPHEN 325 MG TABLET (FP) PO PRN (09:26)
[2022-11-04] MEDS: POTASSIUM CHLORIDE 20 MEQ PREMIX IVPB 100 ML IVPB SCH (09:28)
[2022-11-04 09:57] LABS: BASO % 0.4 % (0-2.0); EOS % 3.4 % (0-4.5); HEMATOCRIT 39.8 % (35.4-49); HEMOGLOBIN 13.3 GM/dL (11.7-16.9); LYMPH % 34.1 % (8-40); MCH 29.9 pg (25.7-33.7); MCHC 33.4 g/dl (32.0-35.9); MEAN CELL VOLUME 89.7 fl (80-96); MONO % 8.6 % (3.8-10.2); NEUT % 53.5 % (42.8-82.8); PLATELET COUNT 125 10^3/uL (134-434); RBC 4.43 M/mm3 (4.00-5.60); RDW 16.6 % (11.9-15.9); WHITE BLOOD COUNT 4.7 K/mm3 (4.0-10.0)
[2022-11-04] MEDS ORDERED: PANTOPRAZOLE 40 MG TABLET PO SCH (10:00)
[2022-11-04] MEDS ORDERED: THIAMINE HCL 100 MG TABLET (FP) PO SCH ×2 (10:00)
[2022-11-04 10:33] LABS: BLOOD UREA NITROGEN 6.9 mg/dL (7-18)
[2022-11-04 10:38] LABS: ALBUMIN 3.4 g/dl (3.4-5.0); CALCIUM 8.2 mg/dL (8.5-10.1); MAGNESIUM 2.2 mg/dL (1.8-2.4)
[2022-11-04 10:41] LABS: CREATININE 0.6 mg/dL (0.55-1.3); PHOSPHOROUS 2.1 mg/dL (2.5-4.9)
[2022-11-04 10:42] LABS: TOT PROT 6.9 g/dl (6.4-8.2)
[2022-11-04 10:43] LABS: BILIRUBIN,TOTAL 0.9 mg/dL (0.2-1)
[2022-11-04] MEDS: KCL 10 MEQ IVPB 10 MEQ/100 ML INFUS.BAG IVPB SCH ×3 (11:16→13:58)
[2022-11-04] MEDS ORDERED: NAPH,MB-DB/K PH,MBDB POWDER PACKET PO ONE ×2 (13:30→14:35)
[2022-11-04] MEDS ORDERED: POTASSIUM CHLORIDE ORAL LIQUID 20 MEQ/15 ML PO ONE (14:00)
[2022-11-04 15:04] VITALS: BP 144/88; PULSE 88; RESP 18; TEMP 97.8
[2022-11-05] MEDS ORDERED: chlordiazePOXIDE HCL 25 MG CAPSULE PO SCH (05:00)
[2022-11-06] MEDS ORDERED: chlordiazePOXIDE HCL 10 MG CAPSULE PO PRN
[2022-11-06] MEDS ORDERED: chlordiazePOXIDE HCL 10 MG CAPSULE PO SCH (05:00)
[2022-11-07] MEDS ORDERED: chlordiazePOXIDE HCL 10 MG CAPSULE PO SCH (05:00)
[2022-11-08] MEDS ORDERED: chlordiazePOXIDE HCL 10 MG CAPSULE PO ONE (05:00)
== END 2022-11-04 15:48 | disposition left against medical advice (07) | DRG 241 ==
LOC: JER 04:54 → JERBED 13:33 → J5S 15:25
PROVIDERS: ADMIT Internal Medicine; ATTEND Internal Medicine
DX: K29.20 Alcoholic gastritis without bleeding (principal); E87.3 Alkalosis; E83.42 Hypomagnesemia; E87.20 Acidosis, unspecified; R56.9 Unspecified convulsions; R16.0 Hepatomegaly, not elsewhere classified; E87.6 Hypokalemia; F10.230 Alcohol dependence with withdrawal, uncomplicated; F10.220 Alcohol dependence with intoxication, uncomplicated; K21.9 Gastro-esophageal reflux disease without esophagitis; E86.0 Dehydration; I10 Essential (primary) hypertension; E78.5 Hyperlipidemia, unspecified; E11.9 Type 2 diabetes mellitus without complications; Z79.84 Long term (current) use of oral hypoglycemic drugs; F19.10 Other psychoactive substance abuse, uncomplicated; K76.0 Fatty (change of) liver, not elsewhere classified; E87.8 Other disorders of electrolyte and fluid balance, not elsewhere classified; Z53.29 Procedure and treatment not carried out because of patient's decision for other reasons
CPT/HCPCS: 0241U-QW; 36415; 71045-TC-FY; 74177-TC; 80048; 80053; 81003; 82010; 82803; 82962; 83605; 83690; 83735; 84100; 84484; 85025; 85610; 85730; 86850; 86900; 86901; 93005; 93010; 99285-25; Q9967

== ENCOUNTER 2023-05-27 21:22 | Emergency (ER) | payer SELFPAY ==
[2023-05-27 21:35] VITALS: TEMP 98; BMI 26.5
[2023-05-27] MEDS ORDERED: chlordiazePOXIDE HCL 25 MG CAPSULE PO ONE (22:22)
[2023-05-27] MEDS ORDERED: MAG HYDROX/AL HYDROX/SIMETH 30 ML UNIT-DOSE CUP PO ONE (22:23)
[2023-05-27] MEDS ORDERED: ONDANSETRON *ODT* 4 MG TABLET SL ONE (22:23)
[2023-05-27] MEDS ORDERED: SODIUM CHLORIDE 0.9% 500 ML INFUS.BAG IV ONE (22:23)
[2023-05-27] MEDS ORDERED: THIAMINE HCL 100 MG TABLET (FP) PO ONE (22:23)
[2023-05-27] MEDS ORDERED: FOLIC ACID 1 MG TABLET (FP) PO ONE (22:23)
[2023-05-27] MEDS ORDERED: FAMOTIDINE 20 MG/50 ML IVPB 20 MG/50 ML MG IVPB ONE ×2 (22:36→22:55)
[2023-05-27] MEDS ORDERED: THIAMINE HCL 100 MG TABLET (FP) ONE (22:54)
[2023-05-27] MEDS ORDERED: chlordiazePOXIDE HCL 25 MG CAPSULE ONE (22:54)
[2023-05-27] MEDS ORDERED: MAG HYDROX/AL HYDROX/SIMETH 30 ML UNIT-DOSE CUP ONE (22:55)
[2023-05-27] MEDS ORDERED: ONDANSETRON *ODT* 4 MG TABLET ONE (22:55)
[2023-05-27] MEDS ORDERED: FOLIC ACID 1 MG TABLET (FP) ONE (22:55)
[2023-05-27 22:59] LABS: BASO % 0.6 % (0-2.0); EOS % 0.1 % (0-4.5); HEMATOCRIT 44.2 % (35.4-49); HEMOGLOBIN 15.1 GM/dL (11.7-16.9); LYMPH % 20.6 % (8-40); MCH 31.3 pg (25.7-33.7); MCHC 34.2 g/dl (32.0-35.9); MEAN CELL VOLUME 91.3 fl (80-96); MEAN PLT VOLUME 7.9 fl (7.5-11.1); MONO % 4.7 % (3.8-10.2); PLATELET COUNT 277 10^3/uL (134-434); RBC 4.84 M/mm3 (4.00-5.60); WHITE BLOOD COUNT 5.3 K/mm3 (4.0-10.0)
[2023-05-27 23:09] LABS: INR 0.99 (0.83-1.09); PROTHROMBIN TIME (PATIENT) 11.5 SEC (9.7-13.0)
[2023-05-27 23:11] LABS: ACTIVATED PTT 29.1 SECONDS (25.2-36.5)
[2023-05-27 23:19] LABS: POTASSIUM 3.9 mmol/L (3.5-5.1)
[2023-05-27 23:21] LABS: ALBUMIN 4.2 g/dl (3.4-5.0); CALCIUM 9.2 mg/dL (8.5-10.1)
[2023-05-27 23:22] LABS: BLOOD UREA NITROGEN 8.5 mg/dL (7-18)
[2023-05-27 23:24] LABS: CREATININE 0.8 mg/dL (0.55-1.3)
[2023-05-27 23:25] LABS: MAGNESIUM 2.2 mg/dL (1.8-2.4)
[2023-05-27 23:26] LABS: TOT PROT 8.2 g/dl (6.4-8.2)
[2023-05-27 23:35] LABS: BILIRUBIN,TOTAL 0.3 mg/dL (0.2-1)
[2023-05-28 00:04] VITALS: BP 141/80; PULSE 103; RESP 20
== END 2023-05-28 00:18 | disposition home or self-care (01) ==
LOC: JER 21:22
PROC: 3E033GC Introduction of Other Therapeutic Substance into Peripheral Vein, Percutaneous Approach (ICD-10-PCS; principal; 2023-05-27)
DX: K29.70 Gastritis, unspecified, without bleeding (principal); F10.239 Alcohol dependence with withdrawal, unspecified; K21.9 Gastro-esophageal reflux disease without esophagitis; R11.2 Nausea with vomiting, unspecified; R10.13 Epigastric pain; R42 Dizziness and giddiness; R25.1 Tremor, unspecified
CPT/HCPCS: 36415; 80053; 83690; 83735; 85025; 85610; 85730; 93005; 93010; 99284-25; Q0162

== ENCOUNTER 2023-07-29 13:59 | Inpatient (IN) | payer OTHER ==
[2023-07-29] MEDS ORDERED: SODIUM CHLORIDE 0.9% 500 ML INFUS.BAG IV ONE (14:43)
[2023-07-29] MEDS ORDERED: FOLIC ACID INJECTION - 1 MG, THIAMINE HCL 100 MG, MULTIVIT INJECTION ADULT 10 ML in SOD... IVPB ONE (14:44)
[2023-07-29] MEDS ORDERED: ONDANSETRON 4 MG/2 ML VIAL IVPUSH ONE ×2 (14:46→17:34)
[2023-07-29] MEDS ORDERED: FAMOTIDINE 20 MG/50 ML IVPB 20 MG/50 ML MG IVPB ONE ×2 (14:46→15:00)
[2023-07-29] MEDS ORDERED: MAG HYDROX/AL HYDROX/SIMETH 30 ML UNIT-DOSE CUP PO ONE (14:47)
[2023-07-29] MEDS ORDERED: ONDANSETRON 4 MG/2 ML VIAL ONE ×2 (15:00→17:50)
[2023-07-29] MEDS ORDERED: MAG HYDROX/AL HYDROX/SIMETH 30 ML UNIT-DOSE CUP ONE (15:00)
[2023-07-29 15:55] LABS: BASO % 0.5 % (0-2.0); EOS % 0.2 % (0-4.5); HEMATOCRIT 44.2 % (35.4-49); HEMOGLOBIN 15.7 GM/dL (11.7-16.9); LYMPH % 34.1 % (8-40); MCH 32.6 pg (25.7-33.7); MCHC 35.6 g/dl (32.0-35.9); MEAN CELL VOLUME 91.6 fl (80-96); MEAN PLT VOLUME 7.2 fl (7.5-11.1); MONO % 6.5 % (3.8-10.2); NEUT % 58.7 % (42.8-82.8); PLATELET COUNT 193 10^3/uL (134-434); RBC 4.83 M/mm3 (4.00-5.60); RDW 14.3 % (11.9-15.9); WHITE BLOOD COUNT 5.6 K/mm3 (4.0-10.0)
[2023-07-29 15:59] LABS: VENOUS BASE EXCESS 0.3 mmol/L (-2-2); VENOUS O2 SATURATION 93.9 % (70-80); VENOUS PCO2 34.3 mmHg (38-52); VENOUS PH 7.453 (7.310-7.410)
[2023-07-29 16:02] LABS: INR 1.04 (0.83-1.09); PROTHROMBIN TIME (PATIENT) 12.1 SEC (9.7-13.0)
[2023-07-29 16:05] LABS: ACTIVATED PTT 29.5 SECONDS (25.2-36.5)
[2023-07-29 16:14] LABS: POTASSIUM 3.9 mmol/L (3.5-5.1)
[2023-07-29 16:16] LABS: CALCIUM 8.1 mg/dL (8.5-10.1)
[2023-07-29 16:17] LABS: ALBUMIN 3.7 g/dl (3.4-5.0); BLOOD UREA NITROGEN 11.2 mg/dL (7-18); MAGNESIUM 2.1 mg/dL (1.8-2.4)
[2023-07-29 16:20] LABS: CREATININE 0.7 mg/dL (0.55-1.3); PHOSPHOROUS 2.5 mg/dL (2.5-4.9)
[2023-07-29 16:21] LABS: BILIRUBIN,TOTAL 0.5 mg/dL (0.2-1); TOT PROT 7.7 g/dl (6.4-8.2)
[2023-07-29] MEDS ORDERED: diazePAM CARPU-JECT 10 MG/2 ML DISP.SYRIN IVPUSH ONE (17:35)
[2023-07-29] MEDS ORDERED: diazePAM CARPU-JECT 10 MG/2 ML DISP.SYRIN ONE (17:50)
[2023-07-29] MEDS ORDERED: TRIMETHOBENZAMIDE HCL 200MG/2ML INJ IM PRN (18:15)
[2023-07-29] MEDS ORDERED: LORazepam 1 MG TABLET PO PRN (18:18)
[2023-07-29] MEDS ORDERED: THIAMINE HCL 200 MG/2 ML VIAL IVPB ONE (18:20)
[2023-07-29 19:21] LABS: URINE APPEARANCE CLEAR; URINE BILIRUBIN NEGATIVE (NEGATIVE); URINE COLOR YELLOW; URINE GLUCOSE (UA) 2+ (NEGATIVE); URINE KETONE NEGATIVE (NEGATIVE); URINE LEUK ESTERASE NEGATIVE (NEGATIVE); URINE NITRITE NEGATIVE (NEGATIVE); URINE PROTEIN TRACE (NEGATIVE); URINE UROBILINOGEN 0.2 mg/dL (0.2-1.0)
[2023-07-29] MEDS ORDERED: THIAMINE HCL 200 MG/2 ML VIAL ONE (19:31)
[2023-07-29 20:06] LABS: COCAINE, UR NEGATIVE (NEGATIVE); METHADONE, UR NEGATIVE (NEGATIVE); URINE AMPHETAMINES NEGATIVE (NEGATIVE); URINE BENZODIAZEPINES NEGATIVE (NEGATIVE)
[2023-07-29 20:07] LABS: OPIATES, URI NEGATIVE (NEGATIVE); PHENCYCLIDINE,URINE NEGATIVE (NEGATIVE); URINE BARBITURATES NEGATIVE (NEGATIVE)
[2023-07-29] MEDS ORDERED: TRIMETHOBENZAMIDE HCL 200MG/2ML INJ IM ONE (20:33)
[2023-07-29] MEDS: INSULIN SLIDING SCALE (NOVOLOG) 1 VIAL SQ SCH (21:03)
[2023-07-29] MEDS ORDERED: LORazepam 1 MG TABLET ONE (22:26)
[2023-07-29] MEDS: LORazepam 2 MG TABLET PO SCH (22:32)
[2023-07-30] MEDS: SODIUM CHLORIDE 1,000 ML IV SCH ×2 (02:08→11:21)
[2023-07-30] MEDS: LORazepam 1 MG TABLET PO SCH ×4 (05:16→23:18)
[2023-07-30] MEDS: LORazepam 2 MG TABLET PO SCH (05:19)
[2023-07-30] MEDS ORDERED: INSULIN (NOVOLOG) ASPART 100 UNITS/ML 10ML VIAL ONE ×2 (05:50→21:35)
[2023-07-30] MEDS: INSULIN SLIDING SCALE (NOVOLOG) 1 VIAL SQ SCH ×4 (06:14→21:33)
[2023-07-30] MEDS ORDERED: SODIUM CHLORIDE 1,000 ML IV SCH (07:40)
[2023-07-30] MEDS: THIAMINE HCL 100 MG TABLET (FP) PO SCH (09:42)
[2023-07-30] MEDS: PANTOPRAZOLE SODIUM 40 MG VIAL IVPUSH SCH ×2 (09:42→21:33)
[2023-07-30] MEDS: ENOXAPARIN NA (PORCINE) 40 MG/0.4 ML DISP.SYRIN SQ SCH (09:42)
[2023-07-30] MEDS: FOLIC ACID 1 MG TABLET (FP) PO SCH (09:42)
[2023-07-30] MEDS ORDERED: PANTOPRAZOLE SODIUM 40 MG VIAL IVPUSH SCH (10:00)
[2023-07-30 10:49] LABS: BASO % 0.3 % (0-2.0); EOS % 1.2 % (0-4.5); HEMATOCRIT 40.3 % (35.4-49); HEMOGLOBIN 13.6 GM/dL (11.7-16.9); LYMPH % 35.1 % (8-40); MCH 31.8 pg (25.7-33.7); MCHC 33.8 g/dl (32.0-35.9); MEAN CELL VOLUME 93.9 fl (80-96); MEAN PLT VOLUME 7.2 fl (7.5-11.1); MONO % 9.4 % (3.8-10.2); PLATELET COUNT 143 10^3/uL (134-434); RBC 4.29 M/mm3 (4.00-5.60); RDW 13.9 % (11.9-15.9); WHITE BLOOD COUNT 5.1 K/mm3 (4.0-10.0)
[2023-07-30 11:11] LABS: POTASSIUM 3.6 mmol/L (3.5-5.1)
[2023-07-30 11:17] LABS: ALBUMIN 3.3 g/dl (3.4-5.0); CALCIUM 7.9 mg/dL (8.5-10.1); MAGNESIUM 1.9 mg/dL (1.8-2.4)
[2023-07-30 11:18] LABS: BLOOD UREA NITROGEN 9.7 mg/dL (7-18)
[2023-07-30 11:20] LABS: CREATININE 0.7 mg/dL (0.55-1.3); PHOSPHOROUS 2.6 mg/dL (2.5-4.9)
[2023-07-30 11:22] LABS: BILIRUBIN,TOTAL 1.1 mg/dL (0.2-1); TOT PROT 6.7 g/dl (6.4-8.2)
[2023-07-30 15:29] VITALS: BMI 30.8
[2023-07-31] MEDS: LORazepam 1 MG TABLET PO SCH ×4 (05:59→22:50)
[2023-07-31] MEDS: INSULIN SLIDING SCALE (NOVOLOG) 1 VIAL SQ SCH ×4 (06:12→22:46)
[2023-07-31] MEDS ORDERED: INSULIN (NOVOLOG) ASPART 100 UNITS/ML 10ML VIAL ONE ×2 (06:14→07:49)
[2023-07-31] MEDS: THIAMINE HCL 100 MG TABLET (FP) PO SCH (09:31)
[2023-07-31] MEDS: FOLIC ACID 1 MG TABLET (FP) PO SCH (09:31)
[2023-07-31] MEDS: ENOXAPARIN NA (PORCINE) 40 MG/0.4 ML DISP.SYRIN SQ SCH (09:31)
[2023-07-31 09:46] LABS: BASO % 0.3 % (0-2.0); EOS % 2.7 % (0-4.5); HEMATOCRIT 40.3 % (35.4-49); HEMOGLOBIN 14.4 GM/dL (11.7-16.9); LYMPH % 37.1 % (8-40); MCH 32.6 pg (25.7-33.7); MCHC 35.7 g/dl (32.0-35.9); MEAN CELL VOLUME 91.3 fl (80-96); MEAN PLT VOLUME 7.6 fl (7.5-11.1); MONO % 9.2 % (3.8-10.2); NEUT % 50.7 % (42.8-82.8); PLATELET COUNT 144 10^3/uL (134-434); RBC 4.42 M/mm3 (4.00-5.60); WHITE BLOOD COUNT 4.5 K/mm3 (4.0-10.0)
[2023-07-31] MEDS: PANTOPRAZOLE SODIUM 40 MG VIAL IVPUSH SCH ×2 (09:54→22:43)
[2023-07-31 09:55] LABS: POTASSIUM 3.3 mmol/L (3.5-5.1)
[2023-07-31 10:08] LABS: BLOOD UREA NITROGEN 7.6 mg/dL (7-18)
[2023-07-31 10:10] LABS: ALBUMIN 3.4 g/dl (3.4-5.0); CALCIUM 8.3 mg/dL (8.5-10.1)
[2023-07-31 10:13] LABS: CREATININE 0.6 mg/dL (0.55-1.3)
[2023-07-31 10:14] LABS: TOT PROT 7.1 g/dl (6.4-8.2)
[2023-07-31] MEDS ORDERED: POTASSIUM CHLORIDE TABS 20 MEQ TABLET.ER (FP) PO ONE (10:30)
[2023-08-01] MEDS ORDERED: LORazepam 0.5 MG TABLET PO PRN
[2023-08-01] MEDS: LORazepam 0.5 MG TABLET PO SCH ×4 (06:52→22:35)
[2023-08-01] MEDS: INSULIN SLIDING SCALE (NOVOLOG) 1 VIAL SQ SCH ×4 (06:53→21:27)
[2023-08-01] MEDS ORDERED: INSULIN (NOVOLOG) ASPART 100 UNITS/ML 10ML VIAL ONE ×3 (06:55→17:42)
[2023-08-01 09:04] LABS: BASO % 0.3 % (0-2.0); EOS % 2.8 % (0-4.5); HEMATOCRIT 41.5 % (35.4-49); LYMPH % 37.7 % (8-40); MCH 33.2 pg (25.7-33.7); MCHC 36.2 g/dl (32.0-35.9); MEAN CELL VOLUME 91.5 fl (80-96); MEAN PLT VOLUME 7.6 fl (7.5-11.1); MONO % 8.4 % (3.8-10.2); NEUT % 50.8 % (42.8-82.8); PLATELET COUNT 151 10^3/uL (134-434); POTASSIUM 3.6 mmol/L (3.5-5.1); RBC 4.53 M/mm3 (4.00-5.60); RDW 14.2 % (11.9-15.9); WHITE BLOOD COUNT 4.9 K/mm3 (4.0-10.0)
[2023-08-01 09:17] LABS: ALBUMIN 3.6 g/dl (3.4-5.0); BLOOD UREA NITROGEN 10.3 mg/dL (7-18); CALCIUM 8.6 mg/dL (8.5-10.1); MAGNESIUM 2.1 mg/dL (1.8-2.4)
[2023-08-01 09:20] LABS: CREATININE 0.8 mg/dL (0.55-1.3)
[2023-08-01 09:21] LABS: TOT PROT 7.6 g/dl (6.4-8.2)
[2023-08-01 09:22] LABS: BILIRUBIN,TOTAL 0.8 mg/dL (0.2-1)
[2023-08-01] MEDS: ENOXAPARIN NA (PORCINE) 40 MG/0.4 ML DISP.SYRIN SQ SCH (11:14)
[2023-08-01] MEDS: FOLIC ACID 1 MG TABLET (FP) PO SCH (11:14)
[2023-08-01] MEDS: PANTOPRAZOLE SODIUM 40 MG VIAL IVPUSH SCH ×2 (11:14→21:19)
[2023-08-01] MEDS: THIAMINE HCL 100 MG TABLET (FP) PO SCH (11:15)
[2023-08-02] MEDS ORDERED: LORazepam 0.5 MG TABLET PO ONE (05:00)
[2023-08-02] MEDS: INSULIN SLIDING SCALE (NOVOLOG) 1 VIAL SQ SCH ×2 (06:39→12:18)
[2023-08-02] MEDS: ENOXAPARIN NA (PORCINE) 40 MG/0.4 ML DISP.SYRIN SQ SCH (09:10)
[2023-08-02] MEDS: THIAMINE HCL 100 MG TABLET (FP) PO SCH (09:10)
[2023-08-02] MEDS: FOLIC ACID 1 MG TABLET (FP) PO SCH (09:10)
[2023-08-02 09:51] LABS: BASO % 0.4 % (0-2.0); EOS % 3.1 % (0-4.5); HEMATOCRIT 38.6 % (35.4-49); HEMOGLOBIN 13.8 GM/dL (11.7-16.9); LYMPH % 33.5 % (8-40); MCH 33.2 pg (25.7-33.7); MCHC 35.7 g/dl (32.0-35.9); MEAN CELL VOLUME 92.9 fl (80-96); MEAN PLT VOLUME 7.8 fl (7.5-11.1); MONO % 10.3 % (3.8-10.2); NEUT % 52.7 % (42.8-82.8); PLATELET COUNT 139 10^3/uL (134-434); RBC 4.15 M/mm3 (4.00-5.60); RDW 14.1 % (11.9-15.9); WHITE BLOOD COUNT 4.8 K/mm3 (4.0-10.0)
[2023-08-02] MEDS ORDERED: PANTOPRAZOLE 40 MG TABLET PO SCH (10:00)
[2023-08-02 10:04] VITALS: RESP 18; TEMP 98.1
[2023-08-02 10:10] LABS: POTASSIUM 3.7 mmol/L (3.5-5.1)
[2023-08-02 10:13] LABS: ALBUMIN 3.2 g/dl (3.4-5.0); MAGNESIUM 1.9 mg/dL (1.8-2.4)
[2023-08-02 10:17] LABS: BILIRUBIN,TOTAL 0.5 mg/dL (0.2-1)
[2023-08-02 10:18] LABS: TOT PROT 6.7 g/dl (6.4-8.2)
[2023-08-02 10:32] LABS: CREATININE 0.8 mg/dL (0.55-1.3)
[2023-08-02 14:06] VITALS: BP 134/82; PULSE 79
== END 2023-08-02 14:54 | disposition home or self-care (01) | DRG 282 ==
LOC: JER 13:59 → JERBED 17:32 → OBSVTOIN 18:15 → J8W 07-30 00:11
PROVIDERS: ADMIT Internal Medicine; ATTEND Nurse Practitioner Acute Care
PROC: HZ2ZZZZ Detoxification Services for Substance Abuse Treatment (ICD-10-PCS; principal; 2023-07-29)
DX: K85.90 Acute pancreatitis without necrosis or infection, unspecified (principal); I10 Essential (primary) hypertension; E11.9 Type 2 diabetes mellitus without complications; E78.5 Hyperlipidemia, unspecified; F10.239 Alcohol dependence with withdrawal, unspecified; F17.200 Nicotine dependence, unspecified, uncomplicated; K29.70 Gastritis, unspecified, without bleeding; R74.01 Elevation of levels of liver transaminase levels
CPT/HCPCS: 36415; 71045-TC-FY; 74177-TC; 80053; 80307; 81003; 82010; 82803; 82962; 83036; 83690; 83735; 84100; 84484; 85025; 85610; 85730; 87086; 87186; 93005; 93010; 99285-25; G0378; Q9967

== ENCOUNTER 2023-11-27 16:18 | Inpatient (IN) | payer OTHER ==
[2023-11-27 16:28] VITALS: BMI 25.8
[2023-11-27] MEDS ORDERED: chlordiazePOXIDE HCL 25 MG CAPSULE ONE (17:42)
[2023-11-27] MEDS ORDERED: FAMOTIDINE 10 MG/ML VIAL IVPB ONE (17:43)
[2023-11-27] MEDS: FAMOTIDINE 20 MG/50 ML IVPB 20 MG/50 ML MG IVPB ONE (17:59)
[2023-11-27] MEDS: SUCRALFATE 1 GM/10 ML UNIT DOSE CUPS PO ONE (17:59)
[2023-11-27] MEDS: chlordiazePOXIDE HCL 25 MG CAPSULE PO ONE (18:00)
[2023-11-27] MEDS: PANTOPRAZOLE SODIUM 40 MG VIAL IVPUSH ONE (18:00)
[2023-11-27 18:18] LABS: BASO % 0.5 % (0-2.0); EOS % 0.3 % (0-4.5); HEMATOCRIT 45.5 % (35.4-49); HEMOGLOBIN 15.6 GM/dL (11.7-16.9); LYMPH % 41.1 % (8-40); MCH 32.1 pg (25.7-33.7); MCHC 34.2 g/dl (32.0-35.9); MEAN CELL VOLUME 93.9 fl (80-96); MEAN PLT VOLUME 7.4 fl (7.5-11.1); MONO % 7.3 % (3.8-10.2); NEUT % 50.8 % (42.8-82.8); PLATELET COUNT 250 10^3/uL (134-434); RBC 4.84 M/mm3 (4.00-5.60); RDW 14.4 % (11.9-15.9); WHITE BLOOD COUNT 5.8 K/mm3 (4.0-10.0)
[2023-11-27 18:37] LABS: ALBUMIN 4.3 g/dl (3.4-5.0); BLOOD UREA NITROGEN 10.6 mg/dL (7-18)
[2023-11-27 18:42] LABS: BILIRUBIN,TOTAL 0.3 mg/dL (0.2-1); TOT PROT 8.4 g/dl (6.4-8.2)
[2023-11-27 18:46] LABS: LACTIC ACID 4.9 mmol/L (0.4-2.0)
[2023-11-27] MEDS ORDERED: ACETAMINOPHEN INJECTION 100 ML IVPB ONE (19:28)
[2023-11-27] MEDS: SODIUM CHLORIDE 0.9% 500 ML INFUS.BAG IV ONE ×2 (19:32→22:37)
[2023-11-27] MEDS: ACETAMINOPHEN 1000 MG/100 ML BAG IVPB ONE (19:32)
[2023-11-27 19:45] LABS: VENOUS BASE EXCESS 1.6 mmol/L (-2-2); VENOUS PCO2 38.7 mmHg (38-52); VENOUS PH 7.439 (7.310-7.410)
[2023-11-27 20:02] LABS: PH,URINE 5.5 (5.0-8.0); URINE APPEARANCE CLEAR; URINE BILIRUBIN NEGATIVE (NEGATIVE); URINE COLOR YELLOW; URINE GLUCOSE (UA) 2+ (NEGATIVE); URINE KETONE NEGATIVE (NEGATIVE); URINE LEUK ESTERASE NEGATIVE (NEGATIVE); URINE NITRITE NEGATIVE (NEGATIVE); URINE PROTEIN 1+ (NEGATIVE); URINE UROBILINOGEN 0.2 mg/dL (0.2-1.0)
[2023-11-27] MEDS: SODIUM CHLORIDE 2,000 ML IV STA (20:18)
[2023-11-27 20:49] LABS: HYALINE CASTS 2.65 /uL (0-3.1); URINE BACTERIA 28.6 /uL (0-1359); URINE RBC 6.1 /uL (0-23.9); URINE WBC 0.4 /uL (0-25.8)
[2023-11-27 22:02] LABS: POTASSIUM 3.6 mmol/L (3.5-5.1)
[2023-11-27 22:03] LABS: LACTIC ACID 3.2 mmol/L (0.4-2.0)
[2023-11-27 22:04] LABS: BLOOD UREA NITROGEN 9.1 mg/dL (7-18)
[2023-11-27 22:07] LABS: CREATININE 0.6 mg/dL (0.55-1.3)
[2023-11-27 22:09] LABS: CALCIUM 7.2 mg/dL (8.5-10.1)
[2023-11-27] MEDS ORDERED: KETOROLAC TROMETHAMINE 15 MG/ML VIAL ONE (22:29)
[2023-11-27] MEDS: KETOROLAC TROMETHAMINE 15 MG/ML VIAL IVPUSH ONE (22:37)
[2023-11-27] MEDS ORDERED: diazePAM CARPU-JECT 10 MG/2 ML DISP.SYRIN ONE (23:24)
[2023-11-27] MEDS ORDERED: ONDANSETRON 4 MG/2 ML VIAL ONE (23:24)
[2023-11-27] MEDS: ONDANSETRON 4 MG/2 ML VIAL IVPUSH ONE (23:29)
[2023-11-27] MEDS: diazePAM CARPU-JECT 10 MG/2 ML DISP.SYRIN IVPUSH ONE (23:29)
[2023-11-28] MEDS ORDERED: chlordiazePOXIDE HCL 25 MG CAPSULE PO PRN ×2 (00:40→14:24)
[2023-11-28] MEDS: SODIUM CHLORIDE 1,000 ML IV SCH ×2 (01:46→15:02)
[2023-11-28] MEDS ORDERED: chlordiazePOXIDE HCL 25 MG CAPSULE ONE ×2 (05:19→10:24)
[2023-11-28] MEDS: chlordiazePOXIDE HCL 25 MG CAPSULE PO SCH ×2 (05:21→16:45)
[2023-11-28 06:45] LABS: BASO % 0.5 % (0-2.0); EOS % 1.4 % (0-4.5); HEMOGLOBIN 12.3 GM/dL (11.7-16.9); LYMPH % 28.1 % (8-40); MCH 32.1 pg (25.7-33.7); MEAN CELL VOLUME 94.5 fl (80-96); MEAN PLT VOLUME 7.2 fl (7.5-11.1); MONO % 8.9 % (3.8-10.2); NEUT % 61.1 % (42.8-82.8); PLATELET COUNT 159 10^3/uL (134-434); RBC 3.81 M/mm3 (4.00-5.60); RDW 14.5 % (11.9-15.9); WHITE BLOOD COUNT 4.3 K/mm3 (4.0-10.0)
[2023-11-28 07:01] LABS: POTASSIUM 3.7 mmol/L (3.5-5.1)
[2023-11-28 07:05] LABS: BLOOD UREA NITROGEN 8.4 mg/dL (7-18); CALCIUM 7.1 mg/dL (8.5-10.1); MAGNESIUM 1.7 mg/dL (1.8-2.4)
[2023-11-28 07:08] LABS: BILIRUBIN,DIRECT 0.1 mg/dL (0.0-0.2); CREATININE 0.6 mg/dL (0.55-1.3); PHOSPHOROUS 2.8 mg/dL (2.5-4.9)
[2023-11-28 07:09] LABS: BILIRUBIN,TOTAL 0.7 mg/dL (0.2-1)
[2023-11-28 07:16] LABS: ALBUMIN 3.3 g/dl (3.4-5.0); TOT PROT 6.4 g/dl (6.4-8.2)
[2023-11-28] MEDS: INSULIN ASPART SLIDING SCALE (NOVOLOG) 1 VIAL SQ SCH ×2 (07:50→16:44)
[2023-11-28 08:00] LABS: HIV INTERPRETATION NEGATIVE (NEGATIVE)
[2023-11-28] MEDS ORDERED: FOLIC ACID 1 MG TABLET (FP) ONE (10:24)
[2023-11-28] MEDS ORDERED: THIAMINE HCL 100 MG TABLET (FP) ONE (10:24)
[2023-11-28] MEDS ORDERED: ENOXAPARIN NA (PORCINE) 30 MG/0.3 ML DISP.SYRIN SQ ONE (10:25)
[2023-11-28] MEDS ORDERED: PANTOPRAZOLE SODIUM 40 MG/100 ML BAG IVPB ONE (10:25)
[2023-11-28] MEDS: THIAMINE HCL 100 MG TABLET (FP) PO SCH (10:30)
[2023-11-28] MEDS: FOLIC ACID 1 MG TABLET (FP) PO SCH (10:30)
[2023-11-28] MEDS: ENOXAPARIN NA (PORCINE) 30 MG/0.3 ML DISP.SYRIN SQ SCH ×2 (11:21→15:27)
[2023-11-28] MEDS: PANTOPRAZOLE SODIUM 40 MG VIAL IVPUSH SCH ×2 (11:35→22:29)
[2023-11-28 12:58] LABS: METHADONE, UR NEGATIVE (NEGATIVE)
[2023-11-28 12:59] LABS: COCAINE, UR NEGATIVE (NEGATIVE); OPIATES, URI NEGATIVE (NEGATIVE); PHENCYCLIDINE,URINE NEGATIVE (NEGATIVE); URINE AMPHETAMINES NEGATIVE (NEGATIVE); URINE BARBITURATES NEGATIVE (NEGATIVE); URINE BENZODIAZEPINES POSITIVE (NEGATIVE)
[2023-11-28 13:19] VITALS: RESP 18
[2023-11-29] MEDS ORDERED: chlordiazePOXIDE HCL 25 MG CAPSULE PO SCH (05:00)
[2023-11-29] MEDS: chlordiazePOXIDE HCL 25 MG CAPSULE PO SCH (05:58)
[2023-11-29 09:19] LABS: BASO % 0.6 % (0-2.0); EOS % 3.2 % (0-4.5); HEMATOCRIT 39.3 % (35.4-49); HEMOGLOBIN 13.5 GM/dL (11.7-16.9); LYMPH % 30.2 % (8-40); MCH 32.2 pg (25.7-33.7); MCHC 34.4 g/dl (32.0-35.9); MEAN CELL VOLUME 93.6 fl (80-96); MEAN PLT VOLUME 7.8 fl (7.5-11.1); MONO % 9.2 % (3.8-10.2); NEUT % 56.8 % (42.8-82.8); PLATELET COUNT 144 10^3/uL (134-434); RDW 14.7 % (11.9-15.9); WHITE BLOOD COUNT 3.5 K/mm3 (4.0-10.0)
[2023-11-29 09:41] LABS: POTASSIUM 3.3 mmol/L (3.5-5.1)
[2023-11-29 09:49] LABS: CALCIUM 7.4 mg/dL (8.5-10.1)
[2023-11-29 09:50] LABS: ALBUMIN 3.3 g/dl (3.4-5.0); BLOOD UREA NITROGEN 4.1 mg/dL (7-18); MAGNESIUM 1.8 mg/dL (1.8-2.4)
[2023-11-29 09:53] LABS: CREATININE 0.5 mg/dL (0.55-1.3)
[2023-11-29 09:54] LABS: BILIRUBIN,TOTAL 0.6 mg/dL (0.2-1); TOT PROT 6.8 g/dl (6.4-8.2)
[2023-11-29] MEDS ORDERED: ENOXAPARIN NA (PORCINE) 30 MG/0.3 ML DISP.SYRIN SQ SCH (10:00)
[2023-11-29] MEDS: THIAMINE HCL 100 MG TABLET (FP) PO SCH (10:19)
[2023-11-29] MEDS: FOLIC ACID 1 MG TABLET (FP) PO SCH (10:19)
[2023-11-29] MEDS: MAGNESIUM 1GM/D5W - 1 GM/100 ML IVPB IVPB ONE (13:25)
[2023-11-29] MEDS: POTASSIUM CHLORIDE ORAL LIQUID 20 MEQ/15 ML PO ONE (13:25)
[2023-11-29] MEDS: diphenhydrAMINE HCL 25 MG CAPSULE (FP) PO PRN (17:34)
[2023-11-30] MEDS ORDERED: chlordiazePOXIDE HCL 10 MG CAPSULE PO PRN ×2
[2023-11-30] MEDS ORDERED: chlordiazePOXIDE HCL 10 MG CAPSULE PO SCH (05:00)
[2023-11-30] MEDS: chlordiazePOXIDE HCL 10 MG CAPSULE PO SCH (05:56)
[2023-11-30 09:02] VITALS: BP 105/62; PULSE 69; TEMP 97.8
[2023-11-30] MEDS: THIAMINE HCL 100 MG TABLET (FP) PO SCH (09:14)
[2023-11-30 10:16] LABS: BASO % 0.3 % (0-2.0); EOS % 3.6 % (0-4.5); HEMOGLOBIN 13.8 GM/dL (11.7-16.9); MCH 32.3 pg (25.7-33.7); MCHC 34.5 g/dl (32.0-35.9); MEAN CELL VOLUME 93.7 fl (80-96); MEAN PLT VOLUME 8.1 fl (7.5-11.1); MONO % 8.3 % (3.8-10.2); NEUT % 64.8 % (42.8-82.8); PLATELET COUNT 133 10^3/uL (134-434); RBC 4.27 M/mm3 (4.00-5.60); RDW 14.3 % (11.9-15.9); WHITE BLOOD COUNT 4.5 K/mm3 (4.0-10.0)
[2023-11-30 10:36] LABS: POTASSIUM 3.5 mmol/L (3.5-5.1)
[2023-11-30 10:39] LABS: ALBUMIN 3.4 g/dl (3.4-5.0); BLOOD UREA NITROGEN 6.4 mg/dL (7-18); CALCIUM 8.1 mg/dL (8.5-10.1)
[2023-11-30 10:40] LABS: MAGNESIUM 2.2 mg/dL (1.8-2.4)
[2023-11-30 10:43] LABS: CREATININE 0.7 mg/dL (0.55-1.3)
[2023-11-30 10:45] LABS: BILIRUBIN,TOTAL 0.4 mg/dL (0.2-1); TOT PROT 6.9 g/dl (6.4-8.2)
[2023-12-01] MEDS ORDERED: chlordiazePOXIDE HCL 10 MG CAPSULE PO SCH ×2 (05:00)
[2023-12-02] MEDS ORDERED: chlordiazePOXIDE HCL 10 MG CAPSULE PO ONE ×2 (05:00)
== END 2023-11-30 14:54 | disposition left against medical advice (07) | DRG 770 ==
LOC: JER 16:18 → JERBED 23:15 → J6S 11-28 14:13 → OBSVTOIN 11-28 16:52
PROVIDERS: ADMIT Internal Medicine; ATTEND Internal Medicine
DX: F10.230 Alcohol dependence with withdrawal, uncomplicated (principal); I10 Essential (primary) hypertension; E78.5 Hyperlipidemia, unspecified; K29.20 Alcoholic gastritis without bleeding; R74.01 Elevation of levels of liver transaminase levels; E11.65 Type 2 diabetes mellitus with hyperglycemia; E87.6 Hypokalemia; E83.42 Hypomagnesemia; E87.29 Other acidosis; R94.31 Abnormal electrocardiogram [ECG] [EKG]
CPT/HCPCS: 0241U-QW; 36415; 71046-TC-FY; 74018-TC-FY; 80048; 80053; 80076; 80307; 81003; 82803; 82962; 83036; 83605; 83690; 83735; 84100; 84484; 85025; 85730; 86780; 87389; 87491; 87591; 93005; 93010; 99285-25; G0378; J0131

== ENCOUNTER 2024-03-03 15:58 | Inpatient (IN) | payer OTHER ==
[2024-03-03] MEDS ORDERED: ONDANSETRON 4 MG/2 ML VIAL ONE (17:24)
[2024-03-03] MEDS ORDERED: ACETAMINOPHEN INJECTION 100 ML IVPB ONE (17:24)
[2024-03-03] MEDS ORDERED: FAMOTIDINE 20 MG/50 ML IVPB 20 MG/50 ML MG IVPB ONE (17:24)
[2024-03-03 17:26] LABS: BASO % 0.4 % (0-2.0); EOS % 0.3 % (0-4.5); HEMATOCRIT 39.2 % (35.4-49); HEMOGLOBIN 13.8 GM/dL (11.7-16.9); LYMPH % 38.5 % (8-40); MCH 32.7 pg (25.7-33.7); MCHC 35.2 g/dl (32.0-35.9); MEAN PLT VOLUME 6.9 fl (7.5-11.1); MONO % 7.5 % (3.8-10.2); NEUT % 53.3 % (42.8-82.8); PLATELET COUNT 131 10^3/uL (134-434); RBC 4.22 M/mm3 (4.00-5.60); RDW 16.7 % (11.9-15.9); WHITE BLOOD COUNT 5.1 K/mm3 (4.0-10.0)
[2024-03-03 17:27] LABS: VENOUS BASE EXCESS 2.2 mmol/L (-2-2); VENOUS O2 SATURATION 93.3 % (70-80); VENOUS PCO2 39.9 mmHg (38-52); VENOUS PH 7.439 (7.310-7.410)
[2024-03-03 17:33] LABS: INR 0.95 (0.83-1.09); PROTHROMBIN TIME (PATIENT) 10.8 SEC (9.7-13.0)
[2024-03-03 17:35] LABS: ACTIVATED PTT 32.5 SECONDS (25.2-36.5)
[2024-03-03] MEDS: LACTATED RINGERS SOLUTION 1000 ML INFUS.BAG IV ONE (17:39)
[2024-03-03] MEDS: ONDANSETRON 4 MG/2 ML VIAL IVPUSH ONE (17:40)
[2024-03-03] MEDS: FAMOTIDINE 20 MG/50 ML IVPB 20 MG/50 ML MG IVPB ONE (17:40)
[2024-03-03 17:47] LABS: POTASSIUM 3.4 mmol/L (3.5-5.1)
[2024-03-03 17:49] LABS: CALCIUM 8.8 mg/dL (8.5-10.1)
[2024-03-03 17:50] LABS: ALBUMIN 4.2 g/dl (3.4-5.0); BLOOD UREA NITROGEN 4.8 mg/dL (7-18); MAGNESIUM 2.2 mg/dL (1.8-2.4)
[2024-03-03 17:53] LABS: CREATININE 0.8 mg/dL (0.55-1.3)
[2024-03-03 17:54] LABS: BILIRUBIN,TOTAL 0.6 mg/dL (0.2-1); TOT PROT 8.2 g/dl (6.4-8.2)
[2024-03-03] MEDS: ACETAMINOPHEN 1000 MG/100 ML BAG IVPB ONE (17:56)
[2024-03-03] MEDS: FOLIC ACID INJECTION - 1 MG, THIAMINE HCL 100 MG, MULTIVIT INJECTION ADULT 10 ML in SOD... IVPB ONE (18:47)
[2024-03-03] MEDS ORDERED: LORazepam 1 MG TABLET ONE (21:20)
[2024-03-03] MEDS ORDERED: POTASSIUM CHLORIDE TABS 20 MEQ TABLET.ER (FP) PO ONE (21:20)
[2024-03-03] MEDS: LORazepam 1 MG TABLET PO PRN (21:24)
[2024-03-03] MEDS: POTASSIUM CHLORIDE TABS 20 MEQ TABLET.ER (FP) PO SCH (21:24)
[2024-03-03] MEDS: INSULIN ASPART SLIDING SCALE (NOVOLOG) 1 VIAL SQ SCH (22:22)
[2024-03-04 00:18] VITALS: BMI 23.0
[2024-03-04] MEDS: SODIUM CHLORIDE 1,000 ML IV SCH (03:56)
[2024-03-04 07:16] LABS: HEMATOCRIT 33.7 % (35.4-49); HEMOGLOBIN 11.6 GM/dL (11.7-16.9); MCH 32.6 pg (25.7-33.7); MCHC 34.4 g/dl (32.0-35.9); MEAN CELL VOLUME 94.9 fl (80-96); MEAN PLT VOLUME 7.4 fl (7.5-11.1); PLATELET COUNT 83 10^3/uL (134-434); RBC 3.55 M/mm3 (4.00-5.60); RDW 16.5 % (11.9-15.9); WHITE BLOOD COUNT 3.2 K/mm3 (4.0-10.0)
[2024-03-04 07:37] LABS: POTASSIUM 3.4 mmol/L (3.5-5.1)
[2024-03-04 07:39] LABS: CALCIUM 7.5 mg/dL (8.5-10.1)
[2024-03-04 07:40] LABS: ALBUMIN 3.5 g/dl (3.4-5.0); BLOOD UREA NITROGEN 5.7 mg/dL (7-18); MAGNESIUM 1.9 mg/dL (1.8-2.4)
[2024-03-04 07:43] LABS: CREATININE 0.7 mg/dL (0.55-1.3)
[2024-03-04 07:44] LABS: BILIRUBIN,TOTAL 0.5 mg/dL (0.2-1); TOT PROT 6.9 g/dl (6.4-8.2)
[2024-03-04 08:39] LABS: HIV INTERPRETATION NEGATIVE (NEGATIVE)
[2024-03-04] MEDS: ENOXAPARIN NA (PORCINE) 40 MG/0.4 ML DISP.SYRIN SQ SCH (09:20)
[2024-03-04] MEDS: FAMOTIDINE 20 MG TABLET PO SCH (09:21)
[2024-03-04] MEDS: THIAMINE 100 MG TABLET PO SCH (09:21)
[2024-03-04] MEDS: FOLIC ACID 1 MG TABLET (FP) PO SCH (09:21)
[2024-03-04] MEDS: LORazepam 2 MG TABLET PO SCH (12:08)
[2024-03-04] MEDS: ONDANSETRON 4 MG/2 ML VIAL IVPUSH PRN (12:44)
[2024-03-04] MEDS: LORazepam 2 MG/ML SDV VIAL IVPUSH PRN (12:44)
[2024-03-04] MEDS: LORazepam 1 MG TABLET PO SCH (17:04)
[2024-03-04] MEDS: LORazepam 1 MG TABLET PO PRN (19:44)
[2024-03-04] MEDS ORDERED: ATORVASTATIN CA 40 MG TABLET (FP) PO SCH (22:00)
[2024-03-05] MEDS: LORazepam 1 MG TABLET PO SCH (05:57)
[2024-03-05 07:04] LABS: HEMATOCRIT 35.9 % (35.4-49); HEMOGLOBIN 12.2 GM/dL (11.7-16.9); MCH 32.1 pg (25.7-33.7); MCHC 33.9 g/dl (32.0-35.9); MEAN CELL VOLUME 94.7 fl (80-96); MEAN PLT VOLUME 8.1 fl (7.5-11.1); PLATELET COUNT 64 10^3/uL (134-434); RBC 3.79 M/mm3 (4.00-5.60); RDW 16.3 % (11.9-15.9); WHITE BLOOD COUNT 4.1 K/mm3 (4.0-10.0)
[2024-03-05 07:09] LABS: POTASSIUM 3.5 mmol/L (3.5-5.1)
[2024-03-05 07:12] LABS: BLOOD UREA NITROGEN 6.1 mg/dL (7-18)
[2024-03-05 07:15] LABS: CREATININE 0.5 mg/dL (0.55-1.3); PHOSPHOROUS 2.1 mg/dL (2.5-4.9)
[2024-03-05] MEDS ORDERED: MAG HYDROX/AL HYDROX/SIMETH -MYLANTA- ORAL SUSPENSION PO PRN (08:00)
[2024-03-05] MEDS: PANTOPRAZOLE 40 MG TABLET PO SCH (09:59)
[2024-03-05] MEDS: MAG HYDROX/AL HYDROX/SIMETH 30 ML UNIT-DOSE CUP PO PRN (12:44)
[2024-03-05] MEDS: NAPH,MB-DB/K PH,MBDB POWDER PACKET PO SCH (22:24)
[2024-03-06] MEDS ORDERED: LORazepam 0.5 MG TABLET PO PRN
[2024-03-06] MEDS: LORazepam 0.5 MG TABLET PO SCH (05:43)
[2024-03-07] MEDS: LORazepam 0.5 MG TABLET PO ONE (05:19)
[2024-03-07 07:57] LABS: HEMOGLOBIN 13.3 GM/dL (11.7-16.9); MCH 32.5 pg (25.7-33.7); MEAN CELL VOLUME 95.8 fl (80-96); MEAN PLT VOLUME 8.8 fl (7.5-11.1); PLATELET COUNT 92 10^3/uL (134-434); RBC 4.08 M/mm3 (4.00-5.60); RDW 16.2 % (11.9-15.9); WHITE BLOOD COUNT 5.4 K/mm3 (4.0-10.0)
[2024-03-07 08:13] LABS: POTASSIUM 4.2 mmol/L (3.5-5.1)
[2024-03-07 08:22] LABS: ALBUMIN 3.8 g/dl (3.4-5.0); BLOOD UREA NITROGEN 9.5 mg/dL (7-18); CREATININE 0.6 mg/dL (0.55-1.3); MAGNESIUM 2.2 mg/dL (1.8-2.4)
[2024-03-07 08:23] LABS: BILIRUBIN,TOTAL 0.6 mg/dL (0.2-1); TOT PROT 7.9 g/dl (6.4-8.2)
[2024-03-07 08:26] LABS: CALCIUM 9.3 mg/dL (8.5-10.1); PHOSPHOROUS 3.8 mg/dL (2.5-4.9)
[2024-03-07 14:41] VITALS: BP 133/80; PULSE 77; TEMP 98.4
[2024-03-07 15:19] VITALS: RESP 18
== END 2024-03-07 15:21 | disposition left against medical advice (07) | DRG 770 ==
LOC: JER 15:58 → JERBED 19:41 → J4S 23:40 → OBSVTOIN 03-05 11:42
PROVIDERS: ADMIT Internal Medicine; ATTEND Internal Medicine
PROC: HZ2ZZZZ Detoxification Services for Substance Abuse Treatment (ICD-10-PCS; principal; 2024-03-03)
DX: F10.239 Alcohol dependence with withdrawal, unspecified (principal); E11.65 Type 2 diabetes mellitus with hyperglycemia; E78.5 Hyperlipidemia, unspecified; I10 Essential (primary) hypertension; K21.9 Gastro-esophageal reflux disease without esophagitis; E87.6 Hypokalemia; K29.20 Alcoholic gastritis without bleeding; D69.6 Thrombocytopenia, unspecified; E86.1 Hypovolemia
CPT/HCPCS: 36415; 71045-TC-FY; 80048; 80053; 80307; 82010; 82803; 82962; 83036; 83690; 83735; 84100; 84484; 85025; 85027; 85610; 85730; 86705; 86707; 86708; 87340; 87350; 87389; 87522; 93005; 93010; 99285-25; G0378; J0131

== ENCOUNTER 2024-07-23 17:21 | Emergency (ER) | payer OTHER ==
[2024-07-23 17:25] VITALS: TEMP 98.9; BMI 27.1
[2024-07-23] MEDS ORDERED: THIAMINE HCL 200 MG/2 ML VIAL ONE (18:18)
[2024-07-23] MEDS ORDERED: diazePAM CARPU-JECT 10 MG/2 ML DISP.SYRIN ONE ×2 (18:18→21:03)
[2024-07-23] MEDS ORDERED: FAMOTIDINE 20 MG/50 ML IVPB 20 MG/50 ML MG IVPB ONE (18:19)
[2024-07-23] MEDS ORDERED: ACETAMINOPHEN INJECTION 100 ML ONE (18:19)
[2024-07-23] MEDS ORDERED: ONDANSETRON 4 MG/2 ML VIAL ONE (18:19)
[2024-07-23] MEDS: LACTATED RINGERS SOLUTION 1000 ML INFUS.BAG IV ONE (18:35)
[2024-07-23] MEDS: ACETAMINOPHEN 1000 MG/100 ML BAG IVPB ONE (18:35)
[2024-07-23] MEDS: diazePAM CARPU-JECT 10 MG/2 ML DISP.SYRIN IVPUSH ONE (18:35)
[2024-07-23] MEDS: THIAMINE HCL 200 MG/2 ML VIAL IVPB ONE (18:35)
[2024-07-23] MEDS: FAMOTIDINE 20 MG/50 ML IVPB 20 MG/50 ML MG IVPB ONE (18:35)
[2024-07-23] MEDS: ONDANSETRON 4 MG/2 ML VIAL IVPUSH ONE (18:36)
[2024-07-23 18:51] LABS: BASO % 0.3 % (0-2.0); EOS % 0.4 % (0-4.5); HEMATOCRIT 40.9 % (35.4-49); HEMOGLOBIN 14.2 GM/dL (11.7-16.9); LYMPH % 26.4 % (8-40); MCH 31.1 pg (25.7-33.7); MCHC 34.7 g/dl (32.0-35.9); MEAN CELL VOLUME 89.7 fl (80-96); MEAN PLT VOLUME 7.5 fl (7.5-11.1); NEUT % 65.9 % (42.8-82.8); PLATELET COUNT 186 10^3/uL (134-434); RBC 4.57 M/mm3 (4.00-5.60); RDW 15.5 % (11.9-15.9); WHITE BLOOD COUNT 4.6 K/mm3 (4.0-10.0)
[2024-07-23 18:58] LABS: POTASSIUM 3.8 mmol/L (3.5-5.1)
[2024-07-23 19:00] LABS: CALCIUM 9.1 mg/dL (8.5-10.1)
[2024-07-23 19:01] LABS: ALBUMIN 3.7 g/dl (3.4-5.0); BLOOD UREA NITROGEN 13.3 mg/dL (7-18); MAGNESIUM 1.9 mg/dL (1.8-2.4)
[2024-07-23 19:03] LABS: PHOSPHOROUS 2.1 mg/dL (2.5-4.9)
[2024-07-23 19:04] LABS: CREATININE 0.8 mg/dL (0.55-1.3); INR 1.03 (0.83-1.09); PROTHROMBIN TIME (PATIENT) 11.6 SEC (9.7-13.0)
[2024-07-23 19:05] LABS: BILIRUBIN,TOTAL 0.7 mg/dL (0.2-1); TOT PROT 7.5 g/dl (6.4-8.2)
[2024-07-23 19:07] LABS: ACTIVATED PTT 26.6 SECONDS (25.2-36.5)
[2024-07-23 19:52] LABS: VENOUS BASE EXCESS -1.7 mmol/L (-2-2); VENOUS O2 SATURATION 96.2 % (70-80); VENOUS PCO2 39.4 mmHg (38-52); VENOUS PH 7.385 (7.310-7.410)
[2024-07-23] MEDS ORDERED: chlordiazePOXIDE HCL 25 MG CAPSULE ONE (21:05)
[2024-07-23] MEDS: chlordiazePOXIDE HCL 25 MG CAPSULE PO ONE (21:07)
[2024-07-23 22:02] VITALS: BP 146/82; PULSE 92; RESP 16
== END 2024-07-23 22:26 | disposition home or self-care (01) ==
LOC: JER 17:21
PROC: 3E033GC Introduction of Other Therapeutic Substance into Peripheral Vein, Percutaneous Approach (ICD-10-PCS; principal; 2024-07-23)
PROC: 3E033NZ Introduction of Analgesics, Hypnotics, Sedatives into Peripheral Vein, Percutaneous Approach (ICD-10-PCS; 2024-07-23)
PROC: 3E033GC Introduction of Other Therapeutic Substance into Peripheral Vein, Percutaneous Approach (ICD-10-PCS; 2024-07-23)
PROC: 3E033GC Introduction of Other Therapeutic Substance into Peripheral Vein, Percutaneous Approach (ICD-10-PCS; 2024-07-23)
PROC: 3E033GC Introduction of Other Therapeutic Substance into Peripheral Vein, Percutaneous Approach (ICD-10-PCS; 2024-07-23)
DX: F10.939 Alcohol use, unspecified with withdrawal, unspecified (principal); R07.89 Other chest pain; R11.2 Nausea with vomiting, unspecified; F41.9 Anxiety disorder, unspecified; R25.3 Fasciculation; Z20.822 Contact with and (suspected) exposure to COVID-19
CPT/HCPCS: 0241U-QW; 36415; 71045-TC-FY; 80053; 82010; 82803; 82962; 83690; 83735; 84100; 84484; 85025; 85610; 85730; 86850; 86900; 86901; 93005; 93010; 99285-25; J0131

== ENCOUNTER 2024-08-22 00:18 | Emergency (ER) | payer OTHER ==
[2024-08-22 01:00] VITALS: BP 132/97; PULSE 97; RESP 16; TEMP 97.7; BMI 25.0
[2024-08-22] MEDS ORDERED: diazePAM 5 MG TABLET ONE (01:15)
[2024-08-22] MEDS: diazePAM 5 MG TABLET PO ONE (01:23)
[2024-08-22] MEDS ORDERED: chlordiazePOXIDE HCL 25 MG CAPSULE PO ONE (02:28)
== END 2024-08-22 02:47 | disposition home or self-care (01) ==
LOC: JER 00:18
DX: F10.239 Alcohol dependence with withdrawal, unspecified (principal); R25.1 Tremor, unspecified; R11.2 Nausea with vomiting, unspecified; R10.13 Epigastric pain
CPT/HCPCS: 99283-25